=== PATIENT | female | born 1935 | race Caucasian/White ===

== ENCOUNTER 2020-06-21 10:30 | Outpatient (CLI) | payer MEDICARE, SELFPAY ==
--- NOTE | 2020-06-21 10:42 | XR_ITS ---
WS: [id number] RIGHT KNEE: 3 VIEW(S) TECHNIQUE: AP, oblique(s) and lateral. HISTORY: PAIN IN RIGHT KNEE COMPARISON: None available. No fracture or dislocation. Mild tricompartment osteoarthritis. Mild to moderate joint space narrowing with moderate size osteoph ytes from the joint lines. There is chondrocalcinosis bilaterally. Well-corticated osseous densities over the lateral femoral condyle. Small suprapatellar joint effusion. No soft tissue abnormality. XR/XR knee RT 3V* [id number] IMPRESSION: 1. Moderate tricompartment osteoarthritis. 2. Medial lateral compartment chondrocalcinosis. 3. Small well-corticated osseous densities lateral to the femoral condyle. Ost eophytes or potential loose bodies.
--- NOTE | 2020-06-21 10:42 | XR_ITS ---
WS: [id number] LEFT KNEE: 3 VIEW(S) TECHNIQUE: AP, oblique(s) and lateral. HISTORY: PAIN IN LEFT KNEE COMPARISON: None available. No fracture or dislocation. Moderate narrowing of the medial compartment. Osteophytes and chondrocalcinosis with bony sclerosis a nd subchondral cystic change. Mild narrowing lateral compartment and chondrocalcinosis. No significant joint effusion. Mild soft tissue edema. No soft tissue abnormality. XR/XR knee LT 3V* [id number] IMPRESSION: 1. Moderate medial compartment osteoarthritis. 2. Medial and lateral chondrocalcinosis.
== END 2020-06-21 10:31 | disposition home or self-care (01) ==
LOC: RADWPI 10:40
DX: M17.0 Bilateral primary osteoarthritis of knee (principal); M11.262 Other chondrocalcinosis, left knee; M11.261 Other chondrocalcinosis, right knee; M25.761 Osteophyte, right knee
CPT/HCPCS: 73562

== ENCOUNTER → 2020-07-19 10:12 | Outpatient (BNVA) | payer MEDICARE, SELFPAY | PROVIDERS: Visit Provider Specialist | DX: M17.0 Bilateral primary osteoarthritis of knee (principal) | CPT/HCPCS: 73560; 73565 ==

== ENCOUNTER 2020-08-02 15:00 | Outpatient (CLI) | payer MEDICARE, SELFPAY ==
--- NOTE | 2020-08-02 15:13 | XR_ITS ---
WS: [id number] Chest 2 views, 08/02/2020 Clinical Data: BRONCHITIS Comparison: None. Findings: No nodules, masses or effusions are seen. The heart is normal. The pulmonary vascularity is not increased. No pneumonia or pneumothorax is seen. The aortic arch and descending aorta are tortuo us. There is a thoracic dextroscoliosis. XR/XR chest 2V* [id number] Impression: Atherosclerosis.
== END 2020-08-02 15:01 | disposition home or self-care (01) ==
LOC: RADWPI 15:04
DX: J40 Bronchitis, not specified as acute or chronic (principal); I70.90 Unspecified atherosclerosis
CPT/HCPCS: 71046

== ENCOUNTER → 2020-09-13 10:29 | Outpatient (BNVA) | payer MEDICARE, SELFPAY | PROVIDERS: Visit Provider Podiatrist Foot & Ankle Surgery | DX: M21.6X1 Other acquired deformities of right foot (principal); M21.6X2 Other acquired deformities of left foot; M19.072 Primary osteoarthritis, left ankle and foot; M19.071 Primary osteoarthritis, right ankle and foot; M85.872 Other specified disorders of bone density and structure, left ankle and foot; M85.871 Other specified disorders of bone density and structure, right ankle and foot | CPT/HCPCS: 73630 ==

== ENCOUNTER → 2022-02-27 10:41 | Outpatient (BNVA) | payer MEDICARE, SELFPAY | PROVIDERS: Visit Provider Specialist | DX: M17.0 Bilateral primary osteoarthritis of knee (principal); Z71.89 Other specified counseling | CPT/HCPCS: 20610; J7326 ==

== ENCOUNTER → 2022-03-01 13:15 | Outpatient (BNVA) | payer MEDICARE, SELFPAY | PROVIDERS: Visit Provider Podiatrist Foot & Ankle Surgery | DX: M21.6X1 Other acquired deformities of right foot (principal); M21.6X2 Other acquired deformities of left foot; M76.822 Posterior tibial tendinitis, left leg; M76.72 Peroneal tendinitis, left leg | CPT/HCPCS: 99214 ==

== ENCOUNTER → 2022-09-07 08:23 | Outpatient (BNVA) | payer MEDICARE, SELFPAY | PROVIDERS: Visit Provider Specialist | DX: M17.0 Bilateral primary osteoarthritis of knee (principal); Z71.89 Other specified counseling | CPT/HCPCS: 20610; J7326 ==

== ENCOUNTER → 2022-09-27 08:25 | Outpatient (BNVA) | payer MEDICARE, SELFPAY | PROVIDERS: PCP Clinical Nurse Specialist Adult Health; Visit Provider Clinical Nurse Specialist Adult Health | DX: E53.8 Deficiency of other specified B group vitamins (principal); I10 Essential (primary) hypertension; E87.1 Hypo-osmolality and hyponatremia; D64.9 Anemia, unspecified; E11.9 Type 2 diabetes mellitus without complications; E55.9 Vitamin D deficiency, unspecified | CPT/HCPCS: 80053; 80061; 82306; 82607; 83036; 85025 ==

== ENCOUNTER → 2023-01-01 14:18 | Outpatient (BNVA) | payer MEDICARE, SELFPAY | PROVIDERS: PCP Clinical Nurse Specialist Adult Health; Visit Provider Clinical Nurse Specialist Adult Health | DX: E87.1 Hypo-osmolality and hyponatremia (principal); D64.9 Anemia, unspecified; E11.9 Type 2 diabetes mellitus without complications; R41.3 Other amnesia | CPT/HCPCS: 80053; 85025 ==

== ENCOUNTER → 2023-01-02 11:33 | Outpatient (BNVA) | payer MEDICARE, SELFPAY | PROVIDERS: PCP Clinical Nurse Specialist Adult Health; Visit Provider Clinical Nurse Specialist Adult Health | DX: R35.0 Frequency of micturition (principal) | CPT/HCPCS: 81000 ==

== ENCOUNTER 2023-01-06 19:26 | Observation (INO) | payer MEDICARE, SELFPAY ==
[2023-01-06] VITALS (10 sets, daily range): BP systolic 141–208; BP diastolic 62–113; PULSE 81–114; RESP 16–18; TEMP 36.4; O2SAT 94–97; BMI 24.2
--- NOTE | 2023-01-06 19:30 | CTR_ITS ---
PROCEDURE INFORMATION: Exam: CTA Head With Contrast, Arteriography Exam date and time: 01/06/2023 8:29 PM Age: 87 years old Clinical indication: Dizziness and giddiness; Additional info: Dizzy TECHNIQUE: Imaging protocol: Computed tomographic angiography of the head with contrast. Exam focused on the arteries. 3D rendering (Not supervised by radiologist): MIP and/or 3D reconstructed images were created by the technologist. Radiation optimization: All CT scans at this facility use at least one of these dose optimization techniques: automated exposure control; mA and/or kV adjustment per patient size (includes targeted exams where dose is matched to clinical indication); or iterative reconstruction. Contrast material: OMNI 350; Contrast volume: 70 ml; Contrast route: INTRAVENOUS (IV); REPORTING DATA: Count of CT and Cardiac NM exams in prior 12 months: This patient has received [address] and 0 known cardiac nuclear medicine studies in the 12 months prior to the current study. COMPARISON: No relevant prior studies available. RADIATION DOSE METRICS: Total DLP (mGy-cm): 975.84 FINDINGS: ANTERIOR CIRCULATION: Right internal carotid artery: Intracranial segment is patent with no significant stenosis. No aneurysm. Right middle cerebral artery: No occlusion or significant stenosis. No aneurysm. Right anterior cerebral artery: The right A1 segment of the SIN is not visualized. 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 Left internal carotid artery: Intracranial segment is patent with no significant stenosis. No aneurysm. Left middle cerebral artery: No occlusion or significant stenosis. No aneurysm. Left anterior cerebral artery: No occlusion or significant stenosis. No aneurysm. POSTERIOR CIRCULATION: Right vertebral artery: No occlusion or significant stenosis. No aneurysm. Left vertebral artery: No occlusion or significant stenosis. No aneurysm. Basilar artery: No occlusion or significant stenosis. No aneurysm. Right posterior cerebral artery: No occlusion or significant stenosis. No aneurysm. Left posterior cerebral artery: No occlusion or significant stenosis. No aneurysm. Brain: No acute infarct. No hemorrhage. Involutional changes of the brain, commensurate with age. No mass effect. Cerebral ventricles: No ventriculomegaly. Bones/joints: Unremarkable. No acute fracture. Soft tissues: Unremarkable. Thyroid: Bilateral thyroid nodules are present largest on the left measures 1.1 cm. PROCEDURE INFORMATION: Exam: CTA Neck With Contrast Exam date and time: 01/06/2023 8:29 PM Age: 87 years old Clinical indication: Dizziness and giddiness; Additional info: Dizzy TECHNIQUE: Imaging protocol: Computed tomographic angiography of the neck with contrast. 3D rendering (Not supervised by radiologist): MIP and/or 3D reconstructed images were created by the technologist. Radiation optimization: All CT scans at this facility use at least one of these dose optimization techniques: automated exposure control; mA and/or kV adjustment per patient size (includes targeted exams where dose is matched to clinical indication); or iterative reconstruction. Contrast material: OMNI 350; Contrast volume: 70 ml; Contrast route: INTRAVENOUS (IV); REPORTING DATA: Count of CT and Cardiac NM exams in prior 12 months: This patient has received [address] and 0 known cardiac nuclear medicine studies in the 12 months prior to the current study. COMPARISON: CR XR chest 2V* [id number] 08/02/2020 3:16 PM RADIATION DOSE METRICS: Total DLP (mGy-cm): 975.54 FINDINGS: Right common carotid artery: No stenosis. No dissection or occlusion. Right internal carotid artery: No stenosis of the extracranial segment. No dissection or occlusion. Right external carotid artery: No occlusion or stenosis of the origin. Left common carotid artery: The left common carotid artery has noncalcified plaque causing 50% stenosis just beyond its origin. Left internal carotid artery: No stenosis of the extracranial segment. No dissection or occlusion. Left external carotid artery: No occlusion or stenosis of the origin. Right vertebral artery: No stenosis. No dissection or occlusion. Left vertebral artery: No stenosis. No dissection or occlusion. Soft tissues: Normal. No significant soft tissue swelling. Bones/joints: No acute fracture. CT/CT angio headneck* [id number] IMPRESSION: 1. No acute intracranial abnormality. 2. No acute appearing large vessel occlusion or high-grade stenosis. 3. The right A1 segment of the SIN is not visualized. 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 IMPRESSION: No occlusion high-grade stenosis. The left common carotid artery has 50% stenosis just beyond its origin. REFERENCES: NASCET CRITERIA. The degree of stenosis in the cervical segment of the internal carotid artery is based on NASCET criteria. Normal is no stenosis. Mild is less than 50% stenosis. Moderate is 50-69% stenosis. Severe is 70% to 99% stenosis. Total occlusion is no detectable patent lumen.
--- NOTE | 2023-01-06 19:32 | ECG_ITS ---
[facility] Test Date: 2023-01-06 Pat Name: Marie Coe Department: Room: Gender: Female Pediatrician: : 1935 Requested By: Davonte Pugh Order Number: [id number] Terry MD: Saida Alejandro M.D. Measurements Intervals [place] Rate: 81 P: 59 GA: 177 QRS: -12 QRSD: 144 T: 38 QT: 406 QTc: 474 Interpretive Statements SINUS RHYTHM RIGHT BUNDLE BRANCH BLOCK [120+ ms QRS DURATION, UPRIGHT V1, 40+ ms S IN I/aVL/V4/V5/V6] No previous ECG available for comparison Electronically Signed On 01-07-2023 19:39:10 CDT by Saida Alejandro M.D. [id number]
--- NOTE | 2023-01-06 19:33 | ED_ITS ---
HPI - Nausea/Vomiting/Diarrhea General: Chief complaint: Nausea/Vomiting/Diarrhea Stated complaint: N/V Time Seen by Provider: 01/06/23 19:27 Source: patient and EMS Mode of arrival: EMS Limitations: no limitations History of Present Illness: 87-year-old female states that roughly 2:00 today she started having some dizziness states felt like the room was spinning slightly and she has had nausea and vomiting she denies any difficulty ambulating denies a headache she denies abdominal pain she states that she is had multiple episodes of vomiting denies any fevers. She is hypertensive here Associated nausea: Yes Associated symtoms: Reports dizziness and nausea; Denies chest pain or dysuria Review of Systems Const: Denies: fever(s), chills, body aches or change in appetite Eyes: Denies: blurry vision or eye discomfort ENMT: Denies: throat pain or dental pain Card: Denies: chest pain Resp: Denies: dyspnea GI: Reports: nausea and vomiting : Denies: dysuria Musc: Denies: neck pain or back pain Skin/Breast: Denies: rash Neuro: Reports: dizziness Psych: Denies: depression Cal/Lymph: Denies: easy bruising All/Imm: Denies: urticaria PFSH ED PFSH: Medical History Acute on chronic anemia Diabetes mellitus Diastolic CHF Essential hypertension Gastroesophageal reflux Hearing loss Heart murmur Hyponatremia chronic and is on Samsca for this Knee pain, bilateral Kyphosis Rheumatoid arthritis Seasonal allergies Vitamin B12 deficiency Vitamin D deficiency Surgical History H/O repair of rotator cuff H/O: hysterectomy History of carpal tunnel release History of hernia surgery History of partial surgical removal of colon Family History Father Azul Gehrig disease CAD (coronary artery disease) Mother Stroke Social History Smoking and tobacco status: never smoked Alcohol intake: never Marital status: / Physical Exam Const: COMMON NORMALS: no acute distress, patient oriented x3 and healthy appearing HENMT: COMMON NORMALS: normocephalic and atraumatic HEAD & SCALP: normocephalic and atraumatic Eye: COMMON NORMALS: Equal, round and reactive pupils present and EOMs intact bilaterally PUPIL: Yes Equal, round and reactive pupils present Neck/C-Spine: COMMON NORMALS: full ROM and supple Chest: COMMONS NORMALS: normal inspection of the chest and normal palpation of entire chest wall Resp: COMMON NORMALS: normal respiratory effort, No retractions, No use of accessory muscles and clear to auscultation bilaterally AUSCULTATION: clear to auscultation bilaterally Cardio: COMMON NORMALS: regular rate, regular rhythm and No murmurs present (Cardio) RATE: regular rate RHYTHM: regular rhythm GI: COMMON NORMALS: Normal to inspection, nondistended, normoactive bowel sounds present, Soft to palpation, non-tender and no masses PALPATION: Yes Soft to palpation Extremity: COMMON NORMALS: normal to inspection and full ROM Neuro: COMMON NORMALS: patient oriented x3, moves all extremities and no focal motor deficits Psych: COMMON NORMALS: mental status grossly normal, Normal thought process present and cooperative THOUGHT PROCESS: Normal thought process present Skin: COMMON NORMALS: no rashes or lesions noted and no wounds GENERAL SKIN EXAM: no rashes or lesions noted Course Vital Signs: Vital signs: Vital Signs Temperature 97.6 F 01/06/23 19:27 Pulse Rate 109 H 01/06/23 22:17 Respiratory Rate 16 01/06/23 22:17 Blood Pressure 141/63 01/06/23 22:17 Pulse Oximetry 94 01/06/23 22:17 MDM - Nausea/Vomiting/Diarrhea Medical Decision Making Patient presents here with vomiting along with hypertension along with some weakness and dizziness she still having a hard time walking work-up here is otherwise negative her blood pressure is improved I spoke to the hospitalist and will admit for observation at this time. Lab Data 01/06/23 19:35 01/06/23 19:35 Radiology Impressions Head/Neck CTA 01/06/23 19:30 IMPRESSION: 1. No acute intracranial abnormality. 2. No acute appearing large vessel occlusion or high-grade stenosis. 3. The right A1 segment of the SIN is not visualized. 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 IMPRESSION: No occlusion high-grade stenosis. The left common carotid artery has 50% stenosis just beyond its origin. REFERENCES: NASCET CRITERIA. The degree of stenosis in the cervical segment of the internal carotid artery is based on NASCET criteria. Normal is no stenosis. Mild is less than 50% stenosis. Moderate is 50-69% stenosis. Severe is 70% to 99% stenosis. Total occlusion is no detectable patent lumen. Abdomen/Pelvis CT 01/06/23 19:46 IMPRESSION: 1. Postop changes of the ascending colon, consistent with partial right hemicolectomy. No acute colonic abnormality noted. 2. Status post hernia repair. Surgical mesh in place. No recurrent hernia noted. 3. Status post hysterectomy. 4. No acute abnormality demonstrated in the abdomen and pelvis. Laboratory Results WBC 14.5 10^3/uL (4.0-10.0) H 01/06/23 19:35 RBC 3.87 10^6/uL (4.1-5.3) L 01/06/23 19:35 Hgb 11.8 g/dL (11.5-15.3) 01/06/23 19:35 Hct 37.7 % (37.0-47.0) 01/06/23 19:35 MCV 97.4 fl (81-99) 01/06/23 19:35 MCH 30.5 pg (28.0-34.0) 01/06/23 19:35 MCHC 31.3 g/dL (30.0-36.0) 01/06/23 19:35 RDW 12.6 % (12.1-15.1) 01/06/23 19:35 Plt Count 288 10^3/cmm (130-400) 01/06/23 19:35 MPV 8.9 fL (7.4-10.4) 01/06/23 19:35 Neut % (Auto) 85.3 % 01/06/23 19:35 Lymph % (Auto) 7.7 % 01/06/23 19:35 Rolette % (Auto) 4.9 % 01/06/23 19:35 Eos % (Auto) 0.7 % 01/06/23 19:35 Baso % (Auto) 1.1 % 01/06/23 19:35 Neut # (Auto) 12.37 10^3/uL (1.8-7.7) H 01/06/23 19:35 Lymph # (Auto) 1.1 10^3/uL (0.8-4.8) 01/06/23 19:35 Rolette # (Auto) 0.7 10^3/uL (0.2-0.9) 01/06/23 19:35 Eos # (Auto) 0.1 10^3/uL (0.0-0.8) 01/06/23 19:35 Baso # (Auto) 0.2 10^3/uL (0.0-0.1) H 01/06/23 19:35 Nucleated RBC % (auto) 0 % 01/06/23 19:35 Nucleated RBCs # 0.0 /100WBC 01/06/23 19:35 Sodium 137 mmol/L (136-145) 01/06/23 19:35 Potassium 4.7 mmol/L (3.5-5.1) 01/06/23 19:35 Chloride 99 mmol/L (98-107) 01/06/23 19:35 Carbon Dioxide 23 mmol/L (22-29) 01/06/23 19:35 Anion Gap 19.7 (5-19) H 01/06/23 19:35 BUN 22 mg/dL (8-23) 01/06/23 19:35 Creatinine 1.2 mg/dL (0.5-0.9) H 01/06/23 19:35 GFR Calculation Not Reportable 01/06/23 19:35 Glucose 137 mg/dL (65-115) H 01/06/23 19:35 Calculated Osmolality 289 mOsm/kg (285-295) 01/06/23 19:35 Calcium 9.3 mg/dL (8.5-10.5) 01/06/23 19:35 Total Bilirubin 0.3 mg/dL (0.15-1.2) 01/06/23 19:35 AST 19 U/L (0-32) 01/06/23 19:35 ALT 14 U/L (0-33) 01/06/23 19:35 Alkaline Phosphatase 82 U/L (35-105) 01/06/23 19:35 Total Protein 7.5 g/dL (6.6-8.7) 01/06/23 19:35 Albumin 4.5 g/dL (3.5-5.2) 01/06/23 19:35 Globulin 3.0 g/dL (1.3-4.6) 01/06/23 19:35 Lipase 53 U/L (13-60) 01/06/23 19:35 Urine Color Yellow (Yellow) 01/06/23 21:37 Urine Appearance Clear (CLEAR) 01/06/23 21:37 Urine pH 6 (5-7) 01/06/23 21:37 Ur Specific [place] 1.005 (1.005-1.030) 01/06/23 21:37 Urine Protein Neg (Negative) 01/06/23 21:37 Urine Glucose (UA) Norm (Normal) 01/06/23 21:37 Urine Ketones Negative (Negative) 01/06/23 21:37 Urine Blood Neg (Negative) 01/06/23 21:37 Urine Nitrate Negative (Negative) 01/06/23 21:37 Urine Bilirubin Neg (Negative) 01/06/23 21:37 Urine Urobilinogen Neg mg/dL (Negative) 01/06/23 21:37 Ur Leukocyte Esterase Negative (Negative) 01/06/23 21:37 EKG Data EKG 1: I personally reviewed and interpreted this EKG as follows: EKG interpretation date: 01/06/23 EKG interpretation time: 19:39 Interpretation: nsr hr [address] elevation qrs 144 qtc 444 Discharge Plan Discharge Patient Disposition: Admitted As Inpatient Admit Provider: Oanh Mcgovern Clinical Impression: Essential hypertension, Vomiting, Dizziness Condition: Stable Coding Level of Care Code ED Wound/Ostomy Nurse for Chg Devante
[2023-01-06] MEDS: hyDRALAzine 20 mg/mL INJ 1 mL 10 MG IVP ×2 (19:36→21:25)
[2023-01-06] MEDS: ondansetron 2 mg/ML SDV 2 mL 4 MG IVP (19:36)
[2023-01-06 19:40] LABS: Basophils # 0.2 10^3/uL (0.0-0.1); Basophils % 1.1 %; Eosinophils # 0.1 10^3/uL (0.0-0.8); Eosinophils % 0.7 %; Hematocrit 37.7 % (37.0-47.0); Hemoglobin 11.8 g/dL (11.5-15.3); Lymphocytes # 1.1 10^3/uL (0.8-4.8); Lymphocytes % 7.7 %; Mean Corpuscular HGB Conc 31.3 g/dL (30.0-36.0); Mean Corpuscular Hemoglobin 30.5 pg (28.0-34.0); Mean Corpuscular Volume 97.4 fl (81-99); Mean Platelet Volume 8.9 fL (7.4-10.4); Monocytes # 0.7 10^3/uL (0.2-0.9); Monocytes % 4.9 %; Neutrophils # 12.37 10^3/uL (1.8-7.7); Neutrophils % 85.3 %; Nucleated Red Blood Cells % 0 %; Platelet Count 288 10^3/cmm (130-400); Red Blood Count 3.87 10^6/uL (4.1-5.3); Red Cell Distribution Width 12.6 % (12.1-15.1); White Blood Count 14.5 10^3/uL (4.0-10.0)
--- NOTE | 2023-01-06 19:46 | CTR_ITS ---
PROCEDURE INFORMATION: Exam: CT Abdomen And Pelvis With Contrast Exam date and time: 01/06/2023 8:36 PM Age: 87 years old Clinical indication: Vomiting; Prior surgery; Surgery date: 6+ months; Surgery type: Partial or aren colectomy, hysterectomy, hernia repair TECHNIQUE: Imaging protocol: Computed tomography of the abdomen and pelvis with contrast. Radiation optimization: All CT scans at this facility use at least one of these dose optimization techniques: automated exposure control; mA and/or kV adjustment per patient size (includes targeted exams where dose is matched to clinical indication); or iterative reconstruction. Contrast material: OMNI 350; Contrast volume: 50 ml; Contrast route: INTRAVENOUS (IV); REPORTING DATA: Count of CT and Cardiac NM exams in prior 12 months: This patient has received [address] and 0 known cardiac nuclear medicine studies in the 12 months prior to the current study. COMPARISON: CR XR chest 2V* [id number] 08/02/2020 3:16 PM RADIATION DOSE METRICS: Total DLP (mGy-cm): 579.79 FINDINGS: Lungs: Mild atelectasis versus fibrosis noted at the lung bases. Liver: The liver is unremarkable in appearance. Gallbladder and bile ducts: No calcified gallstones in the gallbladder. No gallbladder wall thickening. No pericholecystic fluid. No biliary dilatation. Pancreas: The pancreas is normal in appearance. No pancreatic duct dilatation. Spleen: No focal splenic lesion. No splenomegaly. Adrenal glands: The adrenal glands appear within normal limits. Kidneys and ureters: The kidneys are normal in morphology. No hydronephrosis. No solid mass. Stomach and bowel: No acute gastric abnormality demonstrated. The small bowel is unremarkable as demonstrated. Postop changes of the ascending colon, consistent with partial right hemicolectomy. No acute colonic abnormality noted. Appendix: Appendix is surgically absent, related to partial right hemicolectomy. Intraperitoneal space: No pneumoperitoneum. No significant fluid collection. Vasculature: Atherosclerosis of the thoracic aorta. No abdominal aortic aneurysm. Lymph nodes: No pathologically enlarged lymph nodes are demonstrated. Urinary bladder: The urinary bladder is unremarkable in appearance. Reproductive: The uterus is not visualized, consistent with hysterectomy. Bones/joints: Scoliosis and degenerative change of the lumbar spine. Soft tissues: Status post hernia repair. Surgical mesh in place. No recurrent hernia noted. CT/CT abdomen pelvis w con* [id number] IMPRESSION: 1. Postop changes of the ascending colon, consistent with partial right hemicolectomy. No acute colonic abnormality noted. 2. Status post hernia repair. Surgical mesh in place. No recurrent hernia noted. 3. Status post hysterectomy. 4. No acute abnormality demonstrated in the abdomen and pelvis.
[2023-01-06 20:00] LABS: Alanine Aminotransferase 14 U/L (0-33); Albumin Level 4.5 g/dL (3.5-5.2); Alkaline Phosphatase 82 U/L (35-105); Anion Gap 19.7 (5-19); Aspartate Amino Transferase 19 U/L (0-32); Blood Urea Nitrogen 22 mg/dL (8-23); Calcium 9.3 mg/dL (8.5-10.5); Carbon Dioxide 23 mmol/L (22-29); Chloride 99 mmol/L (98-107); Glucose 137 mg/dL (65-115); Lipase 53 U/L (13-60); Osmolality Calculated 289 mOsm/kg (285-295); Potassium 4.7 mmol/L (3.5-5.1); Sodium 137 mmol/L (136-145); Total Bilirubin 0.3 mg/dL (0.15-1.2); Total Protein 7.5 g/dL (6.6-8.7)
[2023-01-06] MEDS: iohexol 350 mg/mL 500 mL Btl (per mL) IV (20:39)
[2023-01-06 21:41] LABS: Add Urine Microscopic? NO; Charge for UA Resulting for Rev
[2023-01-06 21:56] LABS: Bilirubin Urine Neg (Negative); Blood Urine Neg (Negative); Glucose Urine UA Norm (Normal); Ketones Urine Negative (Negative); Leukocyte Esterase Urine Negative (Negative); Nitrate Urine Negative (Negative); Protein Urine Neg (Negative); Specific Gravity, Urine 1.005 (1.005-1.030); Urine Appearance Clear (CLEAR); Urine Color Yellow (Yellow); Urobilinogen Urine Neg (Negative); pH Urine 6 (5-7)
[2023-01-06] MEDS: sodium chloride 0.9% 1,000 ML 999 ML IV (22:14)
--- NOTE | 2023-01-06 23:01 | ECG_ITS ---
Test Date: 2023-01-06 Pat Name: Marie Coe Department: Room: Gender: Female Percher: : 1935 Requested By: Davonte Pugh Order Number: [id number] Terry MD: Saida Alejandro M.D. Measurements Intervals [place] Rate: 111 P: 0 MN: 0 QRS: 45 QRSD: 141 T: 38 QT: 363 QTc: 494 Interpretive Statements ATRIAL FLUTTER/TACHYCARDIA WITH RAPID VENTRICULAR RESPONSE RIGHT BUNDLE BRANCH BLOCK [120+ ms QRS DURATION, UPRIGHT V1, 40+ ms S IN I/aVL/V4/V5/V6] Compared to ECG 01/06/2023 19:39:34 Sinus rhythm no longer present Electronically Signed On 01-07-2023 19:39:32 CDT by Saida Alejandro M.D. [id number]
[2023-01-06 23:38] LABS: Troponin(5th) Baseline 25 ng/L (0-10)
[2023-01-07] VITALS (12 sets, daily range): BP systolic 136–169; BP diastolic 65–81; PULSE 60–108; RESP 15–16; TEMP 36.6–36.7; O2SAT 92–96; BMI 29.4
--- NOTE | 2023-01-07 00:04 | USCV_ITS ---
Marie Coe Age: 87 Gender: F : 1935 Exam Date: 01/07/2023 10:39 Ordering Phys: Oanh Mcgovern MD Technologist: ANTONIO [place] [facility] [place]: [place] BP: / HR: 68 Rhythm: Sinus Technical Quality: Adequate MEASUREMENTS (Male / Female) Normal Values 2D ECHO LV Diastolic Diameter PLAX 4.9 cm 4.2 - 5.9 / 3.9 - 5.3 cm LV Systolic Diameter PLAX 2.5 cm IVS Diastolic Thickness 0.7 cm 0.6 - 1.0 / 0.6 - 0.9 cm IVS Systolic Thickness 0.9 cm LVPW Diastolic Thickness 0.7 cm 0.6 - 1.0 / 0.6 - 0.9 cm LVPW Systolic Thickness 1.1 cm LVOT Diameter 2.0 cm LV Ejection Fraction 2D Teich 79.5 % LV Ejection Fraction MOD 2C 61.8 % LV Ejection Fraction 2C AL 60.6 % LA Diameter 4.3 cm M-MODE Aortic Annulus Diameter 2.7 cm LA Ao Ratio MM 1.6 MV E Point Septal Separation 0.3 cm DOPPLER AV Peak Velocity 133.0 cm/s LVOT Peak Velocity 109.0 cm/s AV Area Cont Eq vti 2.4 cm squared AV Area Cont Eq pk 2.5 cm squared MV Area PHT 5.0 cm squared Mitral E to A Ratio 0.8 MV E' Velocity 59.5 cm/s Mitral E to MV E' Ratio 12.4 Mitral E to LV E' Lateral Ratio 13.5 Mitral E to LV E' Septal Ratio 11.6 TR Peak Velocity 290.2 cm/s TR Peak Gradient 33.7 mmHg TV Peak E Velocity 41.0 cm/s Right Atrial Pressure 6.0 mmHg Pulmonary Artery Systolic Pressu 39.7 mmHg PV Peak Velocity 83.0 cm/s FINDINGS Left Ventricle Normal left ventricular size and systolic function, EF 64 %. No regional wall motion abnormalities. Grade I/IV diastolic dysfunction (abnormal relaxation filling pattern), normal to mildly elevated filling pressures. Right Ventricle The right ventricle is normal in size and function. Right Atrium Mildly increased right atrial size. Left Atrium Mildly increased left atrial size. Mitral Valve Moderate mitral annular calcification. Mild mitral valve regurgitation. Aortic Valve Minimally thickened aortic Tricuspid Valve Mild tricuspid valve regurgitation. Pulmonic Valve Trace pulmonary valve regurgitation. Pericardium Normal pericardium without effusion. Aorta Normal ascending aorta dimension. IVC Normal inferior vena cava. CONCLUSIONS Normal left ventricular size and systolic function, EF 64 %. No regional wall motion abnormalities. Grade I/IV diastolic dysfunction (abnormal relaxation filling pattern), normal to mildly elevated filling pressures. MildModerate mitral annular calcification. Mild mitral valve regurgitation. biatrial enlargement. Mild tricuspid valve regurgitation. Minimally thickened aortic valve Mild tricuspid valve regurgitation. Trace pulmonary valve regurgitation. Estimated pulmonary artery peak systolic pressure 40 mmHg There is no pericardial effusion. There are no intracardiac masses. No similar previous studies are available for comparison Dr Saida Alejandro MD [facility] (Electronically Signed) Final Date: 07 January 2023 13:53 S
--- NOTE | 2023-01-07 00:04 | PM.HP ---
Providers/Chief Complaint Admitting Physician: Oanh Mcgovern MD Primary Care Provider: Bryan Calixto Chief Complaint: N/V History of Present Illness Marie Coe is a 87 year old female with a past medical history of hypertension, chronic hyponatremia, diabetes mellitus, CHF, presented to the emergency room today with chief complaints of dizziness, described as a sensation of the room spinning around her. She also had associated nausea and vomiting. Denies any diarrhea. Denies abdominal pain. Upon admission initial assessment her blood pressure was found to be 190/100 mmHg. Patient reports taking all her medications as prescribed. No history of fever. She states she has been having issues with her hearing for the past 2 weeks or so. She was thought to have cerumen impaction and had flushing of the left ear on January 02, 2023 at her PCPs office.. She has also recently been started on tramadol for pain and she thought she had side effects of confusion and memory impairment related to that. Review of Systems General: Reports: 10 or more systems reviewed and unremarkable except in HPI and below Const: Denies: fever(s), chills or body aches Eyes: Denies: change in vision, blurry vision or photophobia ENMT: Reports: hoarseness; Denies: throat pain, enlarged tonsils, odynophagia or nasal congestion Card: Denies: chest pain, palpitations, irregular heart rhythm, edema, swelling of feet/ankles, lightheadedness, pre-syncope, dyspnea on exertion or orthopnea Resp: Denies: dyspnea, productive cough, non-productive cough, wheezing, stridor, pain on inspiration, change in phlegm color, hemoptysis or chest congestion GI: Denies: abdominal pain, nausea, vomiting, hematemesis, coffee ground emesis, dysphagia, heartburn, diarrhea, constipation, GI cramping, change in stool character, hematochezia or melena : Denies: flank pain, difficulty voiding, dysuria, urinary frequency, urinary urgency, urinary hesitancy or hematuria Musc: Denies: neck pain, back pain, extremity pain, joint swelling, joint warmth or deformity Neuro: Denies: headache(s), numbness in extremities, weakness in extremities, sensory changes, difficulty walking, frequent falls, dizziness, vertigo, behavioral changes, Slurred speech present or seizure-like activity Psych: Denies: anxiety, depression, suicidal ideation or homicidal ideation Endo: Denies: polyuria, polydipsia, tired all the time, cold intolerance or hot flashes Cal/Lymph: Denies: easy bruising or easy bleeding Medications/Allergies Home Medications Medication Instructions Recorded Confirmed Last Taken Type ascorbic acid 1,000 1,000 mg PO DAILY 07/19/20 01/07/23 01/06/23 08:[address]-aajtdmtduazk-[id number] powder effervescent pack (Emergen-C Immune Plus) ferrous fumarate 325 mg (106 mg 325 mg PO DAILY 07/19/20 01/07/23 01/06/23 08:00 History iron) tablet (Tetts) folic acid 1 mg tablet 5 mg PO DAILY 07/19/20 01/07/23 01/06/23 08:00 History montelukast 10 mg tablet 10 mg PO DAILY 07/19/20 01/07/23 01/06/23 20:00 History multivitamin 1 cap PO DAILY 07/19/20 01/07/23 01/06/23 08:00 History omega-3 fatty acids 1,000 mg 1,000 mg PO DAILY 07/19/20 01/07/23 01/06/23 08:00 History capsule (Fish Oil Concentrate) omeprazole 20 mg capsule,delayed 20 mg PO BID 07/19/20 01/07/23 01/06/23 08:00 History release zinc acetate 25 mg (zinc) capsule 30 mg PO DAILY 07/19/20 01/07/23 01/06/23 08:00 History Custom Accomadative orthotic #1 ea 09/13/20 01/07/23 Unknown Rx SMO ankle brace #1 ea 10/26/20 01/07/23 Unknown Rx albuterol sulfate 90 mcg/actuation 2 inh inhalation Q6H PRN shortness 09/28/22 01/07/23 Unknown History aerosol inhaler of breath or wheezing benzonatate 100 mg capsule 100 mg PO BID PRN cough #90 caps 09/28/22 01/07/23 Unknown Rx cholecalciferol (vitamin D3) 125 125 mcg PO DAILY 09/28/22 01/07/23 01/06/23 08:00 History mcg (5,000 unit) capsule gabapentin 100 mg capsule 100 mg PO .COMPLEX 09/28/22 01/07/23 Unknown History liraglutide 0.6 mg/0.1 mL (18 mg/3 0.6 mg SUBCUT DAILY 09/28/22 01/07/23 01/06/23 08:00 History mL) subcutaneous pen injector (Victoza 2-Myles) loratadine 10 mg tablet (Claritin) 10 mg PO DAILY 09/28/22 01/07/23 01/06/23 08:00 History mecobalamin (vitamin B12) 1,000 1,000 mcg PO DAILY 09/28/22 01/07/23 01/06/23 08:00 History mcg chewable tablet meloxicam 15 mg tablet 15 mg PO DAILY #90 tabs 09/28/22 01/07/23 01/06/23 08:00 Rx metoprolol tartrate 25 mg tablet 25 mg PO BID 09/28/22 01/07/23 01/06/23 08:00 History promethazine-DM 6.25 mg-15 mg/5 mL 5 ml PO Q6H 09/28/22 01/07/23 Unknown History oral syrup spironolactone 25 mg tablet 25 mg PO DAILY 09/28/22 01/07/23 01/06/23 08:00 History spironolactone 50 mg tablet 50 mg PO DAILY 09/28/22 01/07/23 01/06/23 08:00 History tolvaptan 15 mg tablet (Samsca) 15 mg PO DAILY #90 tabs 11/10/22 01/07/23 01/06/23 08:00 Rx losartan 25 mg tablet 25 mg PO DAILY #90 tabs 12/18/22 01/07/23 01/06/23 08:00 Rx sodium chloride-potassium chloride 1 tab PO BID 01/04/23 01/07/23 01/06/23 08:00 History 287 mg-180 mg-15 mg tablet (Thermotabs) tramadol 50 mg tablet 25 mg PO BID PRN pain #30 tabs 01/04/23 01/07/23 01/06/23 08:00 Rx Allergies Allergy/AdvReac Type Severity Reaction Status Date / Time oxycodone [From Percocet] Allergy Unknown Unknown Verified 01/02/23 10:37 Sulfa (Sulfonamide Allergy unknown Verified 01/02/23 10:37 Antibiotics) PFSH Acute PFSH: Medical History Acute on chronic anemia Diabetes mellitus Diastolic CHF Essential hypertension Gastroesophageal reflux Hearing loss Heart murmur Hyponatremia chronic and is on Samsca for this Knee pain, bilateral Kyphosis Rheumatoid arthritis Seasonal allergies Vitamin B12 deficiency Vitamin D deficiency Surgical History H/O repair of rotator cuff H/O: hysterectomy History of carpal tunnel release History of hernia surgery History of partial surgical removal of colon Family History Father Azul Gehrig disease CAD (coronary artery disease) Mother Stroke Social History Smoking and tobacco status: never smoked Alcohol intake: never Marital status: / Vitals/I&O/Wt Last Vital Signs Temp 97.6 F 01/06/23 19:27 Pulse 109 H 01/06/23 22:17 Resp 16 01/06/23 22:17 BP 141/63 01/06/23 22:17 Pulse Ox 94 01/06/23 22:17 01/06/23 01/06/23 01/07/23 14:59 22:59 07:59 Intake Total 1000 / 1000 Balance 1000 / 1000 Weight last 48 hrs Weight 68.039 kg Physical Exam Narrative: General: No acute distress, AO x3 HEENT: PERRLA, pupils bilaterally equal and reactive, pallors not present Chest: Normal vesicular breath sounds, no added sounds, equal good air entry bilaterally CVS: S1-S2 regular, no murmurs, no tachycardia, no gallops, no rubs Abdomen: Soft, nontender, no organomegaly, bowel sounds present Neuro: No focal deficits, no facial deformity, AO x3, power 5/5 in all limbs E Data 01/06/23 19:35 01/06/23 19:35 Other Labs: Radiology Impressions Head/Neck CTA 01/06/23 19:30 IMPRESSION: 1. No acute intracranial abnormality. 2. No acute appearing large vessel occlusion or high-grade stenosis. 3. The right A1 segment of the SIN is not visualized. 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 IMPRESSION: No occlusion high-grade stenosis. The left common carotid artery has 50% stenosis just beyond its origin. REFERENCES: NASCET CRITERIA. The degree of stenosis in the cervical segment of the internal carotid artery is based on NASCET criteria. Normal is no stenosis. Mild is less than 50% stenosis. Moderate is 50-69% stenosis. Severe is 70% to 99% stenosis. Total occlusion is no detectable patent lumen. Abdomen/Pelvis CT 01/06/23 19:46 IMPRESSION: 1. Postop changes of the ascending colon, consistent with partial right hemicolectomy. No acute colonic abnormality noted. 2. Status post hernia repair. Surgical mesh in place. No recurrent hernia noted. 3. Status post hysterectomy. 4. No acute abnormality demonstrated in the abdomen and pelvis. Laboratory Results WBC 11.2 10^3/uL (4.0-10.0) H 01/07/23 01:05 RBC 3.55 10^6/uL (4.1-5.3) L 01/07/23 01:05 Hgb 10.7 g/dL (11.5-15.3) L 01/07/23 01:05 Hct 34.2 % (37.0-47.0) L 01/07/23 01:05 MCV 96.3 fl (81-99) 01/07/23 01:05 MCH 30.1 pg (28.0-34.0) 01/07/23 01:05 MCHC 31.3 g/dL (30.0-36.0) 01/07/23 01:05 RDW 12.6 % (12.1-15.1) 01/07/23 01:05 Plt Count 273 10^3/cmm (130-400) 01/07/23 01:05 MPV 9.0 fL (7.4-10.4) 01/07/23 01:05 Neut % (Auto) 81.6 % 01/07/23 01:05 Lymph % (Auto) 10.1 % 01/07/23 01:05 [place] % (Auto) 6.7 % 01/07/23 01:05 Eos % (Auto) 0.3 % 01/07/23 01:05 Baso % (Auto) 1.0 % 01/07/23 01:05 Neut # (Auto) 9.15 10^3/uL (1.8-7.7) H 01/07/23 01:05 Lymph # (Auto) 1.1 10^3/uL (0.8-4.8) 01/07/23 01:05 [place] # (Auto) 0.8 10^3/uL (0.2-0.9) 01/07/23 01:05 Eos # (Auto) 0.0 10^3/uL (0.0-0.8) 01/07/23 01:05 Baso # (Auto) 0.1 10^3/uL (0.0-0.1) 01/07/23 01:05 Nucleated RBC % (auto) 0 % 01/07/23 01:05 Nucleated RBCs # 0.0 /100WBC 01/07/23 01:05 Sodium Cancelled 01/07/23 01:05 Potassium Cancelled 01/07/23 01:05 Chloride Cancelled 01/07/23 01:05 Carbon Dioxide Cancelled 01/07/23 01:05 Anion Gap Cancelled 01/07/23 01:05 BUN Cancelled 01/07/23 01:05 Creatinine Cancelled 01/07/23 01:05 GFR Calculation Cancelled 01/07/23 01:05 Glucose Cancelled 01/07/23 01:05 Estimat Average Glucose 82 01/07/23 01:05 Hemoglobin A1c 4.5 % (4.0-6.0) 01/07/23 01:05 Calculated Osmolality Cancelled 01/07/23 01:05 Calcium Cancelled 01/07/23 01:05 Phosphorus Cancelled 01/07/23 01:05 Magnesium Cancelled 01/07/23 01:05 Total Bilirubin Cancelled 01/07/23 01:05 AST Cancelled 01/07/23 01:05 ALT Cancelled 01/07/23 01:05 Alkaline Phosphatase Cancelled 01/07/23 01:05 Troponin T Baseline 25 ng/L (0-10) H 01/06/23 23:11 Troponin T 120 Minute 27.25 ng/L (0-10) H 01/07/23 01:05 Delta Troponin T 2.25 ABS# (0-10) 01/07/23 01:05 Troponin T Hi Sens 6Hr 36.52 ng/L (0-10) H 01/07/23 06:00 Troponin T Hi Sens 6Hr Delta 11.52 ng/L (0-12) 01/07/23 06:00 Total Protein Cancelled 01/07/23 01:05 Albumin Cancelled 01/07/23 01:05 Globulin Cancelled 01/07/23 01:05 Triglycerides Cancelled 01/07/23 01:05 Cholesterol Cancelled 01/07/23 01:05 LDL Cholesterol, Calc Cancelled 01/07/23 01:05 HDL Cholesterol Cancelled 01/07/23 01:05 LDL/HDL Ratio Cancelled 01/07/23 01:05 Cholesterol/HDL Ratio Cancelled 01/07/23 01:05 Lipase 53 U/L (13-60) 01/06/23 19:35 TSH Cancelled 01/07/23 01:05 TSH Cancelled 01/07/23 01:05 Urine Color Yellow (Yellow) 01/06/23 21:37 Urine Appearance Clear (CLEAR) 01/06/23 21:37 Urine pH 6 (5-7) 01/06/23 21:37 Ur Specific [place] 1.005 (1.005-1.030) 01/06/23 21:37 Urine Protein Neg (Negative) 01/06/23 21:37 Urine Glucose (UA) Norm (Normal) 01/06/23 21:37 Urine Ketones Negative (Negative) 01/06/23 21:37 Urine Blood Neg (Negative) 01/06/23 21:37 Urine Nitrate Negative (Negative) 01/06/23 21:37 Urine Bilirubin Neg (Negative) 01/06/23 21:37 Urine Urobilinogen Neg mg/dL (Negative) 01/06/23 21:37 Ur Leukocyte Esterase Negative (Negative) 01/06/23 21:37 A&P Assessment and plan (1) Dizziness: (2) Hypertensive urgency: (3) Vomiting: Plan Patient presenting today with chief complaints of persistent dizziness and vomiting. Found to be hypertensive with blood pressure 190/110 at the time of assessment. Her symptoms may be related to hypertensive urgency. CTA of her head and neck did not show any acute intracranial abnormality. No acute appearing large vessel occlusion. 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 No high-grade stenosis of the carotid vessels. Given persistent intractable dizziness and vomiting along with a more subacute history of 2 weeks of reported confusion and alteration in memory, concerned that patient may be having a posterior circulation stroke. Will evaluate with an MRI further. Alternate differential includes BPPV, trial of meclizine for the same. No nystagmus on exam today For hypertension,She has received hydralazine 10 mg IV x2 in the emergency room. Thereafter her blood pressure is currently now 153/70. Continue her home medications losartan Sodium normal range at 137. Telemetry monitoring to assess for any underlying arrhythmias which may be potentially contributing. Twelve-lead EKG shows sinus rhythm with right bundle branch block. Check troponin series. Attestations Medical Necessity Statement*: Anticipate less than 2 midnight stay for evaluation of persistent dizziness and vomiting Coding Level of Care Code Acute Code for g Fwd Diagnoses Dizziness R42 Hypertensive urgency I16.0 Vomiting R11.10
[2023-01-07] MEDS: morphine 4 mg/mL SDV 1 mL 2 MG IVP (00:59)
[2023-01-07] MEDS: pantoprazole 40 mg SDV IVP (00:59)
[2023-01-07] MEDS: sodium chloride 0.9% 1,000 ML 50 ML IV (01:05)
[2023-01-07] MEDS: heparin 5,000 unit/mL INJ 1 mL 5000 UNIT SUBCUT ×2 (01:05→12:29)
[2023-01-07] MEDS: gabapentin 100 mg Capsule PO ×3 (01:05→20:48)
[2023-01-07 01:27] LABS: Basophils # 0.1 10^3/uL (0.0-0.1); Eosinophils % 0.3 %; Hematocrit 34.2 % (37.0-47.0); Hemoglobin 10.7 g/dL (11.5-15.3); Lymphocytes # 1.1 10^3/uL (0.8-4.8); Lymphocytes % 10.1 %; Mean Corpuscular HGB Conc 31.3 g/dL (30.0-36.0); Mean Corpuscular Hemoglobin 30.1 pg (28.0-34.0); Mean Corpuscular Volume 96.3 fl (81-99); Monocytes # 0.8 10^3/uL (0.2-0.9); Monocytes % 6.7 %; Neutrophils # 9.15 10^3/uL (1.8-7.7); Neutrophils % 81.6 %; Nucleated Red Blood Cells % 0 %; Platelet Count 273 10^3/cmm (130-400); Red Blood Count 3.55 10^6/uL (4.1-5.3); Red Cell Distribution Width 12.6 % (12.1-15.1); White Blood Count 11.2 10^3/uL (4.0-10.0)
[2023-01-07 03:00] LABS: Troponin 5 2HR 27.25 ng/L (0-10)
[2023-01-07 03:03] LABS: Troponin 5 2HR Delta 2.25 ABS# (0-10)
[2023-01-07 03:05] LABS: Estmated Average Glucose 82; Hemoglobin A1C 4.5 % (4.0-6.0)
[2023-01-07] MEDS: ondansetron 2 mg/ML SDV 2 mL 4 MG IVP (04:27)
[2023-01-07] MEDS: gabapentin 300 mg Capsule PO (06:05)
[2023-01-07 06:32] LABS: Troponin 5 6HR 36.52 ng/L (0-10)
[2023-01-07 06:48] LABS: Troponin 5 6HR Delta 11.52 ng/L (0-12)
[2023-01-07] MEDS: folic acid 1 mg Tablet 5 MG PO (09:00)
[2023-01-07] MEDS: metoprolol tartrate 25 mg Tablet PO ×2 (09:01→17:50)
[2023-01-07] MEDS: losartan 50 mg Tablet 25 MG PO (09:01)
[2023-01-07] MEDS: acetaminophen 325 mg Tablet 650 MG PO ×3 (09:12→20:48)
--- NOTE | 2023-01-07 11:50 | PM.MISC ---
Miscellaneous Note Note: H&P reviewed Nausea vomiting improved CT abdomen pelvis unremarkable Patient is full code Clinically slightly dehydrated We will request PT evaluation MRI head is at the bedside Updated beverley shultz
[2023-01-07 13:10] LABS: Albumin Level 3.4 g/dL (3.5-5.2); Alkaline Phosphatase 59 U/L (35-105); Anion Gap 12.9 (5-19); Aspartate Amino Transferase 15 U/L (0-32); Blood Urea Nitrogen 18 mg/dL (8-23); Carbon Dioxide 24 mmol/L (22-29); Chloride 99 mmol/L (98-107); Chol HDL Ratio 1.98 mg/dL (0.0-4.40); Cholesterol 113 mg/dL (0-200); Globulin 2.3 g/dL (1.3-4.6); Glucose 132 mg/dL (65-115); HDL Cholesterol 57 mg/dL (60-100); LDL Cholesterol Calculated 42 mg/dL (50-129); LDL HDL Ratio 0.74 RATIO (0.00-3.22); Magnesium 1.1 mg/dL (1.7-2.3); Osmolality Calculated 276 mOsm/kg (285-295); Phosphorus 3.7 mg/dL (2.5-4.5); Potassium 4.9 mmol/L (3.5-5.1); Sodium 131 mmol/L (136-145); Thyroid Stimulating Hormone 1.64 uIU/mL (0.27-4.20); Total Bilirubin 0.3 mg/dL (0.15-1.2); Triglycerides 72 mg/dL (0-150)
[2023-01-07 13:31] LABS: Total Protein 5.7 g/dL (6.6-8.7)
[2023-01-07 13:32] LABS: Alanine Aminotransferase 11 U/L (0-33)
[2023-01-08] VITALS (7 sets, daily range): BP systolic 165–180; BP diastolic 62–84; PULSE 64–79; RESP 15–17; TEMP 36.4–36.8; O2SAT 93–99; BMI 30.2
[2023-01-08] MEDS: heparin 5,000 unit/mL INJ 1 mL 5000 UNIT SUBCUT ×2 (00:08→10:47)
[2023-01-08] MEDS: pantoprazole 40 mg SDV IVP (00:08)
[2023-01-08] MEDS: gabapentin 300 mg Capsule PO (05:16)
[2023-01-08] MEDS: losartan 50 mg Tablet 25 MG PO (08:10)
[2023-01-08] MEDS: metoprolol tartrate 25 mg Tablet PO (08:12)
[2023-01-08] MEDS: folic acid 1 mg Tablet 5 MG PO (08:12)
--- NOTE | 2023-01-08 10:24 | PM.DCS ---
Discharge Providers Date of Admission: 01/06/23 23:09 Date of Discharge: January 08, 2023 Attending Provider at Admission: Oanh Mcgovern MD Attending Provider at Discharge: Quincy Rivas MD Primary Care Provider: Bryan Calixto Diagnoses at Discharge Discharge Diagnosis (1) Dizziness: Status: Acute (2) Hypertensive urgency: Status: Acute (3) Vomiting: Status: Acute Reason for Visit Reason for Visit: N/V Hospital Course Hospital Course 87-year female who was admitted for medicine remained hemodynamically stable, no signs of stroke, CT head unremarkable, abdominal pelvis CT scan showing chronic changes, she has history of hemicolectomy. Head and neck CT unremarkable. Echo unremarkable. TSH normal. Patient did not experience any nausea or vomiting throughout hospitalization. She is tolerating her diet. Of note, patient had vacs removed from her ears 2 days before her arrival in the ER, she does have some dizziness on changing her head position, I have counseled patient and her daughter to use Virginie's maneuver at home for vertigo. She does not need MRI. No focal neurological deficits noted on clinical exam. Chronic kidney disease at baseline. She is being discharged with stable vitals. For her hypertension I have added an chlorthalidone, amlodipine, increase the dose of metoprolol and losartan, hydralazine with instructions to withhold medications if blood pressure or heart rate is low, discharge instructions provided Physical Exam Narrative: Eating breakfast Awake and alert GCS EOMI, PERRLA GCS 15 Abdomen soft Pleasant and cooperative On room air Discharge Data Studies Completed and Pending Completed Studies During Hospitalization Category Date Time Status CT abdomen pelvis w con* [id number] Stat Cat Scan 01/06/23 19:[address] angio head neck [CT angio headneck* [id number]] Cat Scan 01/06/23 19:30 Completed Stat CV. echo complete* [id number] Routine Ultrasound 01/07/23 00:04 Completed Radiology Impressions Head/Neck CTA 01/06/23 19:30 IMPRESSION: 1. No acute intracranial abnormality. 2. No acute appearing large vessel occlusion or high-grade stenosis. 3. The right A1 segment of the SIN is not visualized. 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 IMPRESSION: No occlusion high-grade stenosis. The left common carotid artery has 50% stenosis just beyond its origin. REFERENCES: NASCET CRITERIA. The degree of stenosis in the cervical segment of the internal carotid artery is based on NASCET criteria. Normal is no stenosis. Mild is less than 50% stenosis. Moderate is 50-69% stenosis. Severe is 70% to 99% stenosis. Total occlusion is no detectable patent lumen. Abdomen/Pelvis CT 01/06/23 19:46 IMPRESSION: 1. Postop changes of the ascending colon, consistent with partial right hemicolectomy. No acute colonic abnormality noted. 2. Status post hernia repair. Surgical mesh in place. No recurrent hernia noted. 3. Status post hysterectomy. 4. No acute abnormality demonstrated in the abdomen and pelvis. Laboratory Results WBC 11.2 10^3/uL (4.0-10.0) H 01/07/23 01:05 RBC 3.55 10^6/uL (4.1-5.3) L 01/07/23 01:05 Hgb 10.7 g/dL (11.5-15.3) L 01/07/23 01:05 Hct 34.2 % (37.0-47.0) L 01/07/23 01:05 MCV 96.3 fl (81-99) 01/07/23 01:05 MCH 30.1 pg (28.0-34.0) 01/07/23 01:05 MCHC 31.3 g/dL (30.0-36.0) 01/07/23 01:05 RDW 12.6 % (12.1-15.1) 01/07/23 01:05 Plt Count 273 10^3/cmm (130-400) 01/07/23 01:05 MPV 9.0 fL (7.4-10.4) 01/07/23 01:05 Neut % (Auto) 81.6 % 01/07/23 01:05 Lymph % (Auto) 10.1 % 01/07/23 01:05 [place] % (Auto) 6.7 % 01/07/23 01:05 Eos % (Auto) 0.3 % 01/07/23 01:05 Baso % (Auto) 1.0 % 01/07/23 01:05 Neut # (Auto) 9.15 10^3/uL (1.8-7.7) H 01/07/23 01:05 Lymph # (Auto) 1.1 10^3/uL (0.8-4.8) 01/07/23 01:05 [place] # (Auto) 0.8 10^3/uL (0.2-0.9) 01/07/23 01:05 Eos # (Auto) 0.0 10^3/uL (0.0-0.8) 01/07/23 01:05 Baso # (Auto) 0.1 10^3/uL (0.0-0.1) 01/07/23 01:05 Nucleated RBC % (auto) 0 % 01/07/23 01:05 Nucleated RBCs # 0.0 /100WBC 01/07/23 01:05 Sodium 131 mmol/L (136-145) L 01/07/23 12:34 Potassium 4.9 mmol/L (3.5-5.1) 01/07/23 12:34 Chloride 99 mmol/L (98-107) 01/07/23 12:34 Carbon Dioxide 24 mmol/L (22-29) 01/07/23 12:34 Anion Gap 12.9 (5-19) 01/07/23 12:34 BUN 18 mg/dL (8-23) 01/07/23 12:34 Creatinine 1.3 mg/dL (0.5-0.9) H 01/07/23 12:34 GFR Calculation Not Reportable 01/07/23 12:34 Glucose 132 mg/dL (65-115) H 01/07/23 12:34 Estimat Average Glucose 82 01/07/23 01:05 Hemoglobin A1c 4.5 % (4.0-6.0) 01/07/23 01:05 Calculated Osmolality 276 mOsm/kg (285-295) L 01/07/23 12:34 Calcium 8.0 mg/dL (8.5-10.5) L 01/07/23 12:34 Phosphorus 3.7 mg/dL (2.5-4.5) 01/07/23 12:34 Magnesium 1.1 mg/dL (1.7-2.3) L 01/07/23 12:34 Total Bilirubin 0.3 mg/dL (0.15-1.2) 01/07/23 12:34 AST 15 U/L (0-32) 01/07/23 12:34 ALT 11 U/L (0-33) 01/07/23 12:34 Alkaline Phosphatase 59 U/L (35-105) 01/07/23 12:34 Troponin T Baseline 25 ng/L (0-10) H 01/06/23 23:11 Troponin T 120 Minute 27.25 ng/L (0-10) H 01/07/23 01:05 Delta Troponin T 2.25 ABS# (0-10) 01/07/23 01:05 Troponin T Hi Sens 6Hr 36.52 ng/L (0-10) H 01/07/23 06:00 Troponin T Hi Sens 6Hr Delta 11.52 ng/L (0-12) 01/07/23 06:00 Total Protein 5.7 g/dL (6.6-8.7) L D 01/07/23 12:34 Albumin 3.4 g/dL (3.5-5.2) L 01/07/23 12:34 Globulin 2.3 g/dL (1.3-4.6) 01/07/23 12:34 Triglycerides 72 mg/dL (0-150) 01/07/23 12:34 Cholesterol 113 mg/dL (0-200) 01/07/23 12:34 LDL Cholesterol, Calc 42 mg/dL (50-129) L 01/07/23 12:34 HDL Cholesterol 57 mg/dL (60-100) L 01/07/23 12:34 LDL/HDL Ratio 0.74 RATIO (0.00-3.22) 01/07/23 12:34 Cholesterol/HDL Ratio 1.98 mg/dL (0.0-4.40) 01/07/23 12:34 Lipase 53 U/L (13-60) 01/06/23 19:35 TSH 1.64 uIU/mL (0.27-4.20) 01/07/23 12:34 Urine Color Yellow (Yellow) 01/06/23 21:37 Urine Appearance Clear (CLEAR) 01/06/23 21:37 Urine pH 6 (5-7) 01/06/23 21:37 Ur Specific [place] 1.005 (1.005-1.030) 01/06/23 21:37 Urine Protein Neg (Negative) 01/06/23 21:37 Urine Glucose (UA) Norm (Normal) 01/06/23 21:37 Urine Ketones Negative (Negative) 01/06/23 21:37 Urine Blood Neg (Negative) 01/06/23 21:37 Urine Nitrate Negative (Negative) 01/06/23 21:37 Urine Bilirubin Neg (Negative) 01/06/23 21:37 Urine Urobilinogen Neg mg/dL (Negative) 01/06/23 21:37 Ur Leukocyte Esterase Negative (Negative) 01/06/23 21:37 Vitals Last Vital Signs Temp 97.9 F 01/08/23 07:37 Pulse 74 01/08/23 07:37 Resp 15 01/08/23 07:37 BP 180/80 01/08/23 08:10 Pulse Ox 95 01/08/23 07:37 O2 Del Method 01/08/23 07:37 Discharge Plan Discharge Patient Disposition: Home Condition: Stable Prescriptions: New chlorthalidone 25 mg tablet 25 mg PO DAILY Qty: 60 3RF amlodipine 5 mg tablet 5 mg PO DAILY Qty: 30 0RF hydralazine 25 mg tablet 25 mg PO BID Qty: 60 3RF Continued omeprazole 20 mg capsule,delayed release(DR/EC) 20 mg PO BID zinc acetate 25 mg (zinc) capsule 30 mg PO DAILY Rx Instructions: swallow whole; do not chew/break/dissolve/open montelukast 10 mg tablet 10 mg PO DAILY omega-3 fatty acids [Fish Oil Concentrate] 1,000 mg capsule 1,000 mg PO DAILY folic acid 1 mg tablet 5 mg PO DAILY Ferretts 325 mg (106 mg iron) tablet 325 mg PO DAILY Emergen-C Immune Plus 1,000 mg powder effervescent in packet 1,000 mg PO DAILY gabapentin 100 mg capsule 100 mg PO .COMPLEX Rx Instructions: 3 caps in AM, 1 at noon, 1 in PM mecobalamin (vitamin B12) 1,000 mcg tablet,chewable 1,000 mcg PO DAILY Rx Instructions: takes 5000 mcg/day (DME) Custom Accomadative orthotic See Rx Instructions .ROUTE .MEDSUPPLY Qty: 1 0RF Rx Instructions: with rear foot post on left benzonatate 100 mg capsule 100 mg PO BID PRN (Reason: cough) Qty: 90 0RF albuterol sulfate 90 mcg/actuation HFA aerosol inhaler 2 inh inhalation Q6H PRN (Reason: shortness of breath or wheezing) cholecalciferol (vitamin D3) 125 mcg (5,000 unit) capsule 125 mcg PO DAILY loratadine [Claritin] 10 mg tablet 10 mg PO DAILY Victoza 2-Myles 0.6 mg/0.1 mL (18 mg/3 mL) pen injector 0.6 mg SUBCUT DAILY tramadol 50 mg tablet 25 mg PO BID PRN (Reason: pain) Qty: 30 2RF Thermotabs 287-180-15 mg tablet 1 tab PO BID (DME) SMO ankle brace See Rx Instructions .Route .MEDSUPPLY Qty: 1 0RF Rx Instructions: As directed Samsca 15 mg tablet 15 mg PO DAILY Qty: 90 3RF Changed metoprolol tartrate 25 mg tablet 50 mg PO BID Qty: 60 3RF losartan 25 mg tablet 50 mg PO DAILY Qty: 60 3RF Discontinued multivitamin Capsule 1 cap PO DAILY spironolactone 25 mg tablet 25 mg PO DAILY Rx Instructions: Takes a total of 75 mg daily spironolactone 50 mg tablet 50 mg PO DAILY Rx Instructions: Takes a total of 75 mg daily meloxicam 15 mg tablet 15 mg PO DAILY Qty: 90 0RF Rx Instructions: Take 1 tablet by mouth daily promethazine-DM 6.25-15 mg/5 mL syrup 5 ml PO Q6H Discharge Orders: Discharge Order (Routine); Ordered 01/08/23 Ordered By: Quincy Rivas Referrals: Bryan Calixto NP [Primary Care Provider] - 01/16/23 12:00 pm Patient Instructions: Opioid Safety Activity Restrictions/Additional Instructions: For your high blood pressure you will take metoprolol, losartan, hydralazine, amlodipine and metoprolol In case your blood pressure is below 110/70 mmHg please do not take your blood pressure medications other than amlodipine 5 mg, if your heart rate is below 60 please do not take metoprolol Maintain a blood pressure log and share with your primary care physician, we will like to reduce the number of medications you are taking for your blood pressure Discharge Attestations Time Spent in Discharge Care*: less than 30 min Quality Metrics Clinical Quality Measures [ No reported AMI, CVA or VTE this stay] Coding Level of Care Code Acute Code for Chg Fwd Diagnoses Dizziness R42 Hypertensive urgency I16.0 Vomiting R11.10
--- NOTE | 2023-01-08 10:32 | PC.CHAP ---
Pastoral Care Encounter/Spiritual Assessment Type of Contact [] Declined irish moss gatherer visit [] Patient/Family/Request visit [] Outpatient visit [] Follow-up visit [] Physician referral [] Code/Alert [x] Routine visit [] Staff referral [] Actively dying [] Patient sleeping [x] Family support [] [] Out of room [] Palliative care [] [] Receiving care in room [] Pre-surgical visit [] Trauma [] Long length of stay [] ICU visit [] Other: Relational/Emotional Strength x [] Patient feels connected with others/family/visitors/staff [] Distress [] Loneliness/isolation [] Abandonment Spirituality of Patientx x] Person of Desire [x] Attends Taoism of their Desire [x] Believes in Prayer [x] Reads Bible or Adventism materials [] There are Spiritual issues to be addressed 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 Interventions xx[] Spiritual/emotional support [] Crisis/trauma care [] Spiritual counseling [] Bereavement support [] Provided bereavement packet [] Provided Bible/devotional materials x[] Provided toy/stuffed animal, coloring book to patient or family member [] Provided Communion [] Anointing/[place] [] Salvation [x] Completed spiritual assessment [] Other: Impact on Illness or Injury [] Angry [] Fearful [] Anxious [] Often cries [] Exhaustion [] Unable to work [] Unable to attend baptist [] Unable to walk/stand [] Unable to read [] Unable to drive [] Unable to eat/drink [] Unable to sleep [] Unable to be with family [] Patient intubated [] Other: Summary Time spent with patient 15 min
[2023-01-08] MEDS: gabapentin 100 mg Capsule PO (10:47)
[2023-01-08] MEDS: hyDRALAzine 20 mg/mL INJ 1 mL 5 MG IVP (11:41)
== END 2023-01-08 12:41 | disposition home health service (06) ==
LOC: ER 19:50 → MEDSURG 23:20
PROVIDERS: Admitting Provider Student in an Organized Health Care Education/Training Program; Emergency Provider Emergency Medicine; PCP Clinical Nurse Specialist Adult Health; Visit Provider Internal Medicine
DX: R42 Dizziness and giddiness (principal); I16.0 Hypertensive urgency; R11.10 Vomiting, unspecified; E87.1 Hypo-osmolality and hyponatremia; E11.9 Type 2 diabetes mellitus without complications; I11.0 Hypertensive heart disease with heart failure; I50.30 Unspecified diastolic (congestive) heart failure; K21.9 Gastro-esophageal reflux disease without esophagitis; M06.9 Rheumatoid arthritis, unspecified; R00.0 Tachycardia, unspecified; I45.10 Unspecified right bundle-branch block
CPT/HCPCS: 36415; 70496; 70498; 74177; 80053; 80061; 81003; 83036; 83690; 83735; 84100; 84443; 84484; 85025; 93005; 93306; 96372; 96374; 96375; 96376; 97110; 97161; 99285; C9113; G0378; J0360; J1644; J2270; J2405; J7030; Q9967

== ENCOUNTER → 2023-01-09 15:05 | Outpatient (BNVA) | payer MEDICARE, SELFPAY | PROVIDERS: PCP Clinical Nurse Specialist Adult Health; Visit Provider Clinical Nurse Specialist Adult Health | DX: E87.1 Hypo-osmolality and hyponatremia (principal); E11.9 Type 2 diabetes mellitus without complications | CPT/HCPCS: 80053; 83036 ==

== ENCOUNTER → 2023-01-25 12:56 | Outpatient (BNVA) | payer MEDICARE, SELFPAY | PROVIDERS: PCP Clinical Nurse Specialist Adult Health; Visit Provider Clinical Nurse Specialist Adult Health | DX: E87.5 Hyperkalemia (principal) | CPT/HCPCS: 80053; 83735; 85025 ==

== ENCOUNTER → 2023-02-13 08:34 | Outpatient (BNVA) | payer MEDICARE, SELFPAY | PROVIDERS: PCP Clinical Nurse Specialist Adult Health; Visit Provider Clinical Nurse Specialist Adult Health | DX: E87.5 Hyperkalemia (principal) | CPT/HCPCS: 80048 ==

== ENCOUNTER → 2023-02-28 08:16 | Outpatient (BNVA) | payer MEDICARE, SELFPAY | PROVIDERS: PCP Clinical Nurse Specialist Adult Health; Visit Provider Clinical Nurse Specialist Adult Health | DX: E87.5 Hyperkalemia (principal) | CPT/HCPCS: 80048 ==

== ENCOUNTER → 2023-03-01 12:53 | Outpatient (BNVA) | payer MEDICARE, SELFPAY | PROVIDERS: PCP Clinical Nurse Specialist Adult Health; Visit Provider Podiatrist Foot & Ankle Surgery | DX: M21.6X1 Other acquired deformities of right foot (principal); M21.6X2 Other acquired deformities of left foot; M76.822 Posterior tibial tendinitis, left leg; M76.72 Peroneal tendinitis, left leg | CPT/HCPCS: 99213 ==

== ENCOUNTER → 2023-03-07 08:32 | Outpatient (BNVA) | payer MEDICARE, SELFPAY | PROVIDERS: PCP Clinical Nurse Specialist Adult Health; Visit Provider Clinical Nurse Specialist Adult Health | DX: E87.1 Hypo-osmolality and hyponatremia (principal) | CPT/HCPCS: 80048 ==

== ENCOUNTER → 2023-03-08 08:09 | Outpatient (BNVA) | payer MEDICARE, SELFPAY | PROVIDERS: PCP Clinical Nurse Specialist Adult Health; Visit Provider Specialist | DX: M17.0 Bilateral primary osteoarthritis of knee (principal) | CPT/HCPCS: 20610; J7326 ==

== ENCOUNTER → 2023-03-29 15:12 | Outpatient (BNVA) | payer MEDICARE, SELFPAY | PROVIDERS: PCP Clinical Nurse Specialist Adult Health; Visit Provider Nurse Practitioner Family | DX: I10 Essential (primary) hypertension (principal); E87.5 Hyperkalemia | CPT/HCPCS: 80048 ==

== ENCOUNTER → 2023-04-25 10:06 | Outpatient (BNVA) | payer MEDICARE, SELFPAY | PROVIDERS: PCP Clinical Nurse Specialist Adult Health; Visit Provider Family Medicine | DX: Z01.818 Encounter for other preprocedural examination (principal) | CPT/HCPCS: 80048; 83735; 85025 ==

== ENCOUNTER 2023-05-04 13:21 | Outpatient (CLI) | payer MEDICARE, SELFPAY ==
--- NOTE | 2023-05-04 14:00 | CT_ITS ---
WS: [id number] CT LEFT knee, noncontrast HISTORY: M17.0 - Bilateral primary osteoarthritis of knee TECHNIQUE: Protocol for [facility] total knee replacement has been obtained. This includes axial imaging th rough the LEFT hip, LEFT knee and LEFT ankle. DLP: 1095.70 mGy.cm COMPARISON: None available. Symmetric appearance of the hip joints. No destructive bone lesions. Bilateral healed fractures infer ior pubic rami. Postoperative changes in the cecal region. Knee: Tricompartment joint space narrowing and osteophytes. No fracture. Small joint effusion. Mild degenerative changes at the ankle. CT/CT knee LT [facility] IMPRESSION: CT imaging provided for [facility] robotic total knee replacement.
== END 2023-05-04 13:22 | disposition home or self-care (01) ==
PROVIDERS: PCP Clinical Nurse Specialist Adult Health; Visit Provider Specialist
DX: M17.0 Bilateral primary osteoarthritis of knee (principal)
CPT/HCPCS: 73700

== ENCOUNTER → 2023-05-07 13:47 | Outpatient (BNVA) | payer MEDICARE, SELFPAY | PROVIDERS: PCP Clinical Nurse Specialist Adult Health; Visit Provider Specialist | DX: M17.12 Unilateral primary osteoarthritis, left knee; M25.561 Pain in right knee; M25.562 Pain in left knee; G89.29 Other chronic pain | CPT/HCPCS: 36415; 73560; 73565; 80048; 81001; 99214 ==

== ENCOUNTER 2023-05-22 16:49 | Observation (INO) | payer MEDICARE, SELFPAY ==
[2023-05-21 10:54] VITALS: BMI 24.7
[2023-05-22] VITALS (16 sets, daily range): BP systolic 105–144; BP diastolic 55–77; PULSE 72–90; RESP 15–17; TEMP 36.3–36.6; O2SAT 93–100
[2023-05-22] MEDS: CELEcoxib 200 mg Capsule 400 MG PO (08:46)
[2023-05-22] MEDS: sodium chloride 0.9% 1,000 ML 30 ML IV (08:47)
[2023-05-22] MEDS: acetaminophen 1,000 MG/100 ML PIGGYBACK 400 MG IV (08:47)
--- NOTE | 2023-05-22 09:17 | ANES.PREANE2 ---
Pre-Anesthetic Assessment Height/Weight: Height 1.6 m Weight 63.503 kg O2 Del Method Room Air 05/22/23 08:27 Preop Diagnosis: Severe degenerative osteoarthritis left knee Operation Date: 05/22/23 09:55 Proposed Procedures p LEFT TOTAL KNEE ARTHROPLASTY WITH [facility] GUIDANCE 97960,M17.10(Left) - Leti Rodrigues MD Familial anesthetic complications: none Was Beta Florencia taken within 24 hours: Yes Was Clonidine taken within 24 hours: N/A Last intake: Intake Last Liquid Date 05/22/23 Last Liquid Time 06:30 Last Solid Date 05/21/23 Last Solid Time 19:00 Social No alcohol and No tobacco Exam alert, oriented x 3, clear to auscultation bilaterally and regular rate & rhythm Airway Mallampati: Class II Dentition: full CV/HEM Hypertension GI Gastroesophageal Reflux Disease partial colectomy Medications/Allergies Home Medications Medication Instructions Recorded Confirmed Last Taken Type ascorbic acid 1,000 1,000 mg PO DAILY 07/19/20 05/21/23 05/21/23 History bf-cuzksgpfeclg-ojunxdnv powder effervescent pack (Emergen-C Immune Plus) ferrous fumarate 325 mg (106 mg 325 mg PO DAILY 07/19/20 05/21/23 05/21/23 History iron) tablet (Ferretts) folic acid 1 mg tablet 5 mg PO DAILY 07/19/20 05/21/23 05/21/23 History omega-3 fatty acids 1,000 mg 1,000 mg PO DAILY 07/19/20 05/21/23 05/21/23 History capsule (Fish Oil Concentrate) zinc acetate 25 mg (zinc) capsule 30 mg PO DAILY 07/19/20 05/21/23 05/21/23 History Custom Accomadative orthotic #1 ea 09/13/20 05/07/23 Unknown Rx SMO ankle brace #1 ea 10/26/20 05/07/23 Unknown Rx cholecalciferol (vitamin D3) 125 125 mcg PO DAILY 09/28/22 05/21/23 05/21/23 History mcg (5,000 unit) capsule gabapentin 100 mg capsule 300 mg PO 09/28/22 05/07/23 05/22/23 History loratadine 10 mg tablet (Claritin) 10 mg PO DAILY 09/28/22 05/21/23 05/21/23 History mecobalamin (vitamin B12) 1,000 1,000 mcg PO DAILY 09/28/22 05/21/23 05/21/23 History mcg chewable tablet tolvaptan 15 mg tablet (Samsca) 15 mg PO DAILY #90 tabs 11/10/22 05/22/23 05/22/23 Rx metoprolol succinate 25 mg 25 mg PO DAILY #90 tabs 01/25/23 05/21/23 05/21/23 Rx tablet,extended release 24 hr omeprazole 20 mg capsule,delayed 20 mg PO BID 90 days #180 caps 01/25/23 05/21/23 05/21/23 Rx release montelukast 10 mg tablet 10 mg PO DAILY #90 tabs 01/26/23 05/21/23 05/21/23 Rx tramadol 50 mg tablet 25 mg PO BID PRN pain #30 tabs 02/06/23 05/21/23 05/21/23 Rx albuterol sulfate 90 mcg/actuation 2 inh inhalation Q6H PRN shortness 03/29/23 05/21/23 05/21/23 Rx aerosol inhaler of breath or wheezing #8.5 grams sodium chloride-potassium chloride 1 tab PO BID 04/02/23 05/21/23 05/21/23 History 287 mg-180 mg-15 mg tablet (Thermotabs) losartan 25 mg tablet 25 mg PO BID 04/25/23 05/21/23 05/21/23 History hydralazine 25 mg tablet 25 mg PO PRN PRN hypertension 05/21/23 05/21/23 Unknown History magnesium 500 mg tablet 500 mg PO DAILY 05/21/23 05/21/23 05/21/23 History meclizine 25 mg tablet 25 mg PO PRN PRN dizziness 05/21/23 05/21/23 02/26/23 08:00 History Allergies Allergy/AdvReac Type Severity Reaction Status Date / Time oxycodone [From Percocet] Allergy Unknown Unknown Verified 05/07/23 14:32 Sulfa (Sulfonamide Allergy unknown Verified 05/07/23 14:32 Antibiotics) Current Medications Generic Name Dose Route Start Last Admin Trade Name Freq PRN Reason Stop Dose Admin Sodium Chloride 1,000 mls @ 30 mls/hr 05/22/23 08:30 05/22/23 08:47 Sodium Chloride 0.9% IV 05/23/23 08:29 30 mls/hr .Q24H SARIKA Administration PFSH Anesthesia Medical History Acute on chronic anemia Diabetes mellitus Diastolic CHF Dizziness Essential hypertension Gastroesophageal reflux Hearing loss Heart murmur Hypertensive urgency Hyponatremia chronic and is on Samsca and thermotabs Knee pain, bilateral Kyphosis Meniere's disease Rheumatoid arthritis Seasonal allergies Vitamin B12 deficiency Vitamin D deficiency Vomiting Surgical History H/O repair of rotator cuff H/O: hysterectomy History of carpal tunnel release History of hernia surgery History of partial surgical removal of colon Family History Father Azul Gehrig disease CAD (coronary artery disease) Mother Stroke Social History Smoking and tobacco status: never smoked Alcohol intake: never Substance/Drug Use: never Marital status: / Data Anesthesia Cardiac Studies: Echocardiogram 01/07/23
--- NOTE | 2023-05-22 09:30 | P.HPUD_ITS ---
Surgery/Procedure H&P Update DATE OF PROCEDURE: May 22, 2023 DATE H&P PERFORMED: 05/07/23 H&P UPDATE INFORMATION: I have reviewed H&P completed within last 30 days, I have examined patient prior to procedure, No changes to prior documentation and H&P is in [facility] EMR on date indicated PREOP DIAGNOSIS: Severe degenerative osteoarthritis left knee PLANNED PROCEDURE: Operation Date: 05/22/23 09:55 Proposed Procedures p LEFT TOTAL KNEE ARTHROPLASTY WITH [facility] GUIDANCE 78662,M17.10(Left) - Leti Rodrigues MD Related Problem List Diagnoses (1) Primary osteoarthritis of left knee:
[2023-05-22] MEDS: ceFAZolin 2,000 MG in sodium chloride 0.9% (plus) 50 ML 100 MG IV (09:57)
[2023-05-22] MEDS: ceFAZolin 1,000 mg SDV 2000 MG IRRIGATION (11:15)
[2023-05-22] MEDS: vancomycin 1,000 MG SDV 1000 MG XX (11:15)
--- NOTE | 2023-05-22 12:13 | SUR.OPER ---
Family Notified Of Patient's Status Via Phone.
--- NOTE | 2023-05-22 14:05 | XR_ITS ---
WS: [id number] EXAMINATION: XR knee LT 1-2V 62543 REASON FOR EXAM: Status post left total knee arthroplasty COMPARISON: None available. ORDER DATE: 05/22/2023 2:05 PM FINDINGS: There is satisfactory alignment of the prostheses at the knee joint is viewed with a knee immobilizer in place and recent postsurgical changes with surgical michelle noted. There is satisfactory prosthes is positioning of the total knee replacement components. . XR/XR knee LT 1-2V 79652 IMPRESSION: Stable appearance of the recent total knee arthroplasty.
--- NOTE | 2023-05-22 14:05 | P.OP_ITS ---
Operative Report Date of procedure: May 22, 2023 Pre-op diagnosis: Primary osteoarthritis left knee with flexion contracture and varus deformity Post-op diagnosis: Primary osteoarthritis left knee with flexion contracture and varus deformity, osteopenia with partial avulsion proximal medial collateral ligament Post-op findings: Severe osteopenia in addition to flexion contracture and varus deformity Procedure done: Left total knee arthroplasty with Hermilo guidance Implants: The [place] total knee system with a size 3 triathlon cruciate retaining left femur, cemented, a triathlon universal tibial component size?3, cemented, a triathlon X3 tibial bearing CS insert size 3 X 11 mm and a cemented triathlon asymmetric patella size 35 x 10 mm. Biosteon Intraline 5.5mm Suture anchor with #2 Force Fiber Specimens removed/disposition: Bone, disposed of Pathology: none sent Surgeon: Leti Rodrigues Inside Sales Administrator: [facility] operating room technicians Anesthesia: MAC (With spinal, ASA 3) Estimated blood loss (mL): 150 Tourniquet time (min): 100 (At 250 mmHg) IV fluids (mL): 900 Urine output (mL): 500 Complications: None Findings: Severe degenerative osteoarthritis with flexion contracture, varus deformity, and severe osteopenia Condition: stable Disposition: PACU (Then to floor for postoperative rehabilitation and pain management) Brief History: This 87-year-old woman has been followed in my office over the past several years. The patient had severe degenerative osteoarthritic change with in both knees. She continues to receive injection therapies in the form of gel 1 and cortisone. These stopped working for her, and she wished to discuss further options. She had significant limitations in her activities of daily living, and most recently, she has limited her walking severely secondary to knee pain. Because of this, the patient wished to proceed. Risks and complications were discussed with the patient and her daughter. Consents were signed and the patient was scheduled for total knee arthroplasty. Procedure: The patient was brought to the operating theater, and after undergoing spinal anesthesia with MAC and supplemental adductor block, ASA 3, the left lower extremity was prepped with Dura-Prep and draped in usual fashion following placement of a tourniquet high on the leg. The leg was then draped free.? Tourniquet was not initially elevated during the case.? As surgical procedure proceeded, it was evident that the patient had significant osteopenia which precluded use of press-fit components. The decision was made to proceed to cemented components, and the tourniquet was elevated. Total tourniquet time was 100 minutes at 250 mmHg. Prior to commencement of the surgical procedure, a surgical pause was performed, and at the time of the surgical pause, we confirmed the site and side of surgery. Additionally, we confirmed the appropriate and timely administration of preoperative antibiotics, Ancef 2 g and Transexemic acid 1 g.? Due to the elevated leukocyte Estrace, the patient was also given ciprofloxacin IV preoperatively. The availability of equipment was confirmed, and the patient's identity was verbalized as well.? An additional transexemic acid 1 g will be given on the floor as well. Following the surgical pause, an incision was made centering over the patella continuing proximally and distally as necessary to allow access to the knee joint. Dissection continued through skin and soft tissues using a scalpel. Hemostasis was obtained using electrocautery. The skin incision was followed by a median parapatellar arthrotomy. The leg was extended and the patella was able to be displaced laterally without difficulty.? Medial release was initially accomplished to allow placement for the Hermilo array.? Appropriate arrays and markers were placed in appropriate position for use of the Hermilo.? Preoperative planning had been accomplished and was discussed in detail with the [facility] telemarketing sales representative.? Intraoperative mapping of the femur and tibia was accomplished after the arrays were placed.? Internal markers were also placed.? Once we had accomplished the Hermilo mapping, we began the appropriate resections for placement of the prosthesis.? The plan was for a cruciate retaining right total knee arthroplasty.? Medial releases were accomplished prior to the surgical procedure to allow balancing of the knee. Once appropriate mapping had been accomplished retraction was established using manual retraction by surgical technicians and also the Hermilo leg positioner and retractors.? The knee was evaluated.? There was significant osteoarthritic change with significant osteophyte formation a significant varus and flexion deformity.? The tibia was cut first with the Hermilo.? Subsequently, appropriate bone resection of the femur was accomplished using the Hermilo.? The femur was sized to a size 3.? Osteophytes were removed prior to this portion of the procedure.? We had performed a medial release at the beginning of the procedure to allow for placement of the array and to allow for better planning with flexion and extension adjustments per Hermilo programming.? Following this resec tion, it was felt that appropriate size for the tibia was a size 3.? Tray was noted to fit nicely with good coverage.? Rim fit was accomplished with the size 3. As the knee was evaluated, it was noted to be quite osteopenic. Secondary to the concern of subsidence of prosthetic components, I elected to proceed with cemented components. The tourniquet was elevated, and appropriate prosthetic devices were brought into the room. Also of note, with manipulation of the knee, a portion of the medial collateral ligament pulled off the knee after the femoral cuts were made causing greater concern due to the osteopenic effects. A trial reduction was accomplished after osteophytes have been removed as well as the medial and lateral menisci.? We had removed the anterior cruciate ligament at the beginning of the case and preserved the posterior cruciate ligament.? Trial reduction was accomplished with a size 3 femoral cruciate retaining component and a size 3 tibial tray with a size 3 x 11 CS tibial bearing insert.? Alignment was felt to be appropriate.? Trial components were removed after the femur had been drilled.? Prior to removal of the tibial tray which had been pinned in position with appropriate rotation as determined by the Hermilo plan, we drilled and broached the tibia fourth the cemented tibia.? All trial components were removed, and the wound was irrigated.? Plans were made for insertion of the prosthetic components.? Prior to this, the patella was manually prepared.? After resection of the articular surface with the jogging system, it was measured and measured a 35 mm patella.? We resected approximately 8 mm of patella.? Patellar height was restored with the patellar component. Once again, the wound was irrigated.? It was noted that the medial collateral ligament was competent, but I had concerns regarding the small avulsion of bone. Plans were then made to place the anchor to repair the medial collateral ligament and reattach the bone. This anchor was to be placed after components have been cemented in place. Having prepared both the tibia and femur, preparation was made for cementing. The wound was copiously irrigated and the surfaces were dried. Exparel was injected as appropriate as well. Cementing was then accomplished first the tibia followed by the femur followed by the patella. In each case, excess cement was cleared from around the components as they were impacted into position and after the knee was fully extended. After the cement had fully cured, surfaces around the components were evaluated and any excess cement was cleared. The anchor was placed into the medial femoral condyle. It was impacted further into the canal after it tried to pull out of the osteopenic bone. We were, however, able to repair the bony avulsion with the medial collateral ligament. Plans were made at that time to limit flexion to 60 degrees at least for the initial onset of therapies.? Exparel was injected about the components deep and superficially.? The knee was then copiously irrigated with betadine and saline and suctioned dry.? Further irrigation was accomplished with saline following the Betadine.? Attention was then directed to closure. Closure was accomplished with 0 Vicryl in the fascial tissues.? This was followed by Surgiflo and vancomycin powder.? Following this, a 2-0 Monocryl was used in the subcutaneous tissues, and the skin was closed with skin michelle.? Care was taken to assure an excellent subcutaneous as well as skin closure.? A sterile dressing was then placed consisting of Dermabond Prineo, OpSite, sterile soft roll including over the foot, and an Carlos wrap. Patient was placed in a Heard brace set to 60 degrees of flexion with full extension. The patient was returned the Recovery Room in a satisfactory condition. X-rays were obtained and reviewed there.? The patient will be discharged to the floor for postoperative rehabilitation and pain management. Related Problem List Diagnoses (1) Primary osteoarthritis of left knee:
--- NOTE | 2023-05-22 14:39 | ANE.PACU2 ---
Inpatient post-anesthesia follow up: Airway intact: Yes Vital signs: Temperature 97.4 F Pulse Rate 83 Respiratory Rate 16 Blood Pressure 115/67 Pulse Oximetry 94 Oxygen Delivery Me thod Room Air Oxygen Flow Rate 4 Fraction of Inspir ed Oxygen Hydration adequate: Yes Nausea and vomiting: Yes Pain level: 1 Mental status: Baseline
[2023-05-22] MEDS: TRAMadol 50 mg Tablet 25 MG PO (15:45)
[2023-05-22] MEDS: gabapentin 100 mg Capsule PO ×2 (15:45→21:05)
--- NOTE | 2023-05-22 16:27 | PC.NURSE ---
Report given to nurse Muhammad on 2 [facility].
--- NOTE | 2023-05-22 16:55 | PC.NURSE ---
1640-pt transferred to room 261 via bed and care turned over to nurse adrian.
[2023-05-22] MEDS: ciprofloxacin 500 mg Tablet PO (21:05)
[2023-05-22] MEDS: TRAMadol 50 mg Tablet PO (21:06)
[2023-05-23] VITALS (11 sets, daily range): BP systolic 66–156; BP diastolic 36–79; PULSE 48–79; RESP 14–22; TEMP 36.4–37; O2SAT 92–98
[2023-05-23] MEDS: acetaminophen 325 mg Tablet 650 MG PO ×2 (06:06→17:07)
[2023-05-23] MEDS: TRAMadol 50 mg Tablet PO ×2 (06:08→17:07)
[2023-05-23] MEDS: ciprofloxacin 500 mg Tablet PO ×2 (08:52→21:08)
[2023-05-23] MEDS: gabapentin 100 mg Capsule PO ×2 (08:52→21:08)
--- NOTE | 2023-05-23 08:57 | PC.PHAR ---
Addendum entered by Marylou Sunshine 05/23/23 08:58: DISREGUARD PREVIOUS NOTE. DAUGHTER TAKES CARE OF MEDICATIONS. UNABLE TO MAKE CONTACT OF 8:55 AM. WILL CONTINUE TO REACH OUT Original Note: PT OUT FOR STRESS TEST UNTIL 9 AM. WILL RETURN TO FLOOR AT THAT TIME.
--- NOTE | 2023-05-23 09:08 | PC.OT ---
Patient just up with PT. Low BP while eating breakfast. RN helped back to bed. Will attempt eval in p.m.
[2023-05-23] MEDS: sodium chloride 0.9% 500 ML 200 ML IV (10:36)
--- NOTE | 2023-05-23 12:32 | PM.CONSULT ---
Providers/Reason For Consult Consulting Physician/Specialty*: Hospitalist Reason for Consult*: Hypotension Attending Physician: Leti Rodrigues MD Primary Care Provider: Bryan Calixto History of Present Illness History of Present Illness Marie Coe is a 87 year old female postop day [address] surgery by Dr[address] Martinez hospitalist service was consulted for postoperative management of hypotension. Patient looks extremely dry not complain of chest pain shortness of breath nausea or vomiting. No bowel movement yet, retaining urine, Jeffers catheter was placed, she was given IV fluids which improved her blood pressure, CBC and BMP requested Not complaining of pain, daughter at the bedside Medications/Allergies Home Medications Medication Instructions Recorded Confirmed Last Taken Type ascorbic acid 1,000 1,000 mg PO DAILY 07/19/20 05/21/23 05/21/23 History gn-rwbviguxvpjo-suygjazl powder effervescent pack (Emergen-C Immune Plus) ferrous fumarate 325 mg (106 mg 325 mg PO DAILY 07/19/20 05/21/23 05/21/23 History iron) tablet (Ferretts) folic acid 1 mg tablet 5 mg PO DAILY 07/19/20 05/21/23 05/21/23 History zinc acetate 25 mg (zinc) capsule 25 mg PO DAILY 07/19/20 05/23/23 05/21/23 History Custom Accomadative orthotic #1 ea 09/13/20 05/23/23 Unknown Rx SMO ankle brace #1 ea 10/26/20 05/23/23 Unknown Rx cholecalciferol (vitamin D3) 125 125 mcg PO DAILY 09/28/22 05/21/23 05/21/23 History mcg (5,000 unit) capsule gabapentin 100 mg capsule 300 mg PO DIRECTED 09/28/22 05/22/23 05/22/23 History loratadine 10 mg tablet (Claritin) 10 mg PO DAILY 09/28/22 05/21/23 05/21/23 History tolvaptan 15 mg tablet (Samsca) 15 mg PO DAILY #90 tabs 11/10/22 05/22/23 05/22/23 Rx metoprolol succinate 25 mg 25 mg PO DAILY #90 tabs 01/25/23 05/21/23 05/21/23 Rx tablet,extended release 24 hr omeprazole 20 mg capsule,delayed 20 mg PO BID 90 days #180 caps 01/25/23 05/21/23 05/21/23 Rx release montelukast 10 mg tablet 10 mg PO DAILY #90 tabs 01/26/23 05/21/23 05/21/23 Rx tramadol 50 mg tablet 25 mg PO BID PRN pain #30 tabs 02/06/23 05/21/23 05/21/23 Rx albuterol sulfate 90 mcg/actuation 2 inh inhalation Q6H PRN shortness 03/29/23 05/21/23 05/21/23 Rx aerosol inhaler of breath or wheezing #8.5 grams sodium chloride-potassium chloride 1 tab PO BID 04/02/23 05/21/23 05/21/23 History 287 mg-180 mg-15 mg tablet (Thermotabs) hydralazine 25 mg tablet 25 mg PO PRN PRN hypertension 05/21/23 05/21/23 Unknown History meclizine 25 mg tablet 25 mg PO PRN PRN dizziness 05/21/23 05/21/23 02/26/23 08:00 History losartan 50 mg tablet 25 mg PO DAILY 05/23/23 05/23/23 05/21/23 History magnesium oxide 500 mg tablet 500 mg PO DAILY 05/23/23 05/23/23 05/21/23 History omega-3 fatty acids 1,000 mg 1,000 mg PO DAILY 05/23/23 05/23/23 05/21/23 History capsule vit M69-vsaxcxbgf factor-folic 2 tab PO DAILY 05/23/23 05/23/23 05/21/23 History acid cmb#2 500 mcg-20 mg-800 mcg tablet Allergies Allergy/AdvReac Type Severity Reaction Status Date / Time oxycodone [From Percocet] Allergy Unknown Unknown Verified 05/07/23 14:32 Sulfa (Sulfonamide Allergy unknown Verified 05/07/23 14:32 Antibiotics) Current Medications Generic Name Dose Route Start Last Admin Trade Name Freq PRN Reason Stop Dose Admin Acetaminophen 650 mg 05/22/23 19:45 05/23/23 06:06 Acetaminophen 325 Mg Tablet PO 650 mg Q6H PRN Administration MILD PAIN Ciprofloxacin HCl 500 mg 05/22/23 21:00 05/23/23 08:52 Ciprofloxacin 500 Mg Tablet PO 500 mg BID@0900,2100 SARIKA Administration Protocol Gabapentin 100 mg 05/22/23 21:00 05/23/23 08:52 Gabapentin 100 Mg Capsule PO 100 mg BID@0900,2100 SARIKA Administration Sodium Chloride 500 mls @ 200 mls/hr 05/23/23 10:00 05/23/23 10:36 Sodium Chloride 0.9% IV 200 mls/hr .Q2H30M SARIKA Administration Tramadol HCl 50 mg 05/22/23 19:43 05/23/23 06:08 Tramadol 50 Mg Tablet PO 50 mg Q6H PRN Administration MODERATE PAIN PFSH Acute PFSH: Medical History Acute on chronic anemia Diabetes mellitus Diastolic CHF Dizziness Essential hypertension Gastroesophageal reflux Hearing loss Heart murmur Hypertensive urgency Hyponatremia chronic and is on Samsca and thermotabs Knee pain, bilateral Kyphosis Meniere's disease Rheumatoid arthritis Seasonal allergies Vitamin B12 deficiency Vitamin D deficiency Vomiting Surgical History H/O repair of rotator cuff H/O: hysterectomy History of carpal tunnel release History of hernia surgery History of partial surgical removal of colon Family History Father Azul Gehrig disease CAD (coronary artery disease) Mother Stroke Social History Smoking and tobacco status: never smoked Alcohol intake: never Substance/Drug Use: never Marital status: / Vitals/I&O/Wt Last Vital Signs Temp 97.5 F L 05/23/23 11:41 Pulse 72 05/23/23 11:41 Resp 22 H 05/23/23 11:41 BP 156/79 05/23/23 11:41 Pulse Ox 95 05/23/23 11:41 O2 Del Method Room Air 05/23/23 11:41 O2 Flow Rate 4 05/22/23 14:10 05/22/23 05/23/23 05/23/23 22:59 06:59 14:59 Intake Total 810 / 3070 480 / 480 Output Total 500 / 1150 550 / 1700 Balance 310 / 1920 -550 / 1370 480 / 480 Physical Exam Narrative: Patient is awake and alert Left knee without any significant swelling Bruise noted around her knee No active swelling or hematoma signs No sign of vascular compromise Clinically patient looks dehydrated S1, S2 GCS 15 Nonfocal neuro exam Pleasant and cooperative Daughter at the bedside Urinary Catheter Management: Jeffers: Cath Placed During This Visit: yes, but has since been removed by the nurse Reason for Continuing Indwelling Catheter: Decision to DC Catheter Urinary Catheter Date of Insertion: 05/22/23 Urinary Catheter Time of Insertion: 10:45 Date Urinary Catheter Removed: 05/23/23 Time Urinary Catheter Discontinued: 06:15 Data 05/23/23 13:21 05/24/23 05:35 A&P Assessment and plan (1) Primary osteoarthritis of left knee: (2) Hypomagnesemia: (3) Hypotension: (4) Dehydration: Plan Hypotension postoperative This seems to be related to hypovolemia and dehydration Continue IV fluid hydration for next 24 hours We will discontinue IV fluids by tomorrow Check CBC and BMP I will also check D-dimer Add DVT prophylaxis with Lovenox Hold antihypertensive regimen for today Diagnoses Primary osteoarthritis of left knee M17.12 Hypomagnesemia E83.42 Hypotension I95.9 Dehydration E86.0
--- NOTE | 2023-05-23 13:37 | P.PN_ITS ---
Subjective Subjective: Patient is seen in her room with her daughter. They are contemplating and considering between correction and home at time of discharge. Patient's daughter would like to see her come home, which she is advised that I have concerns given the significant limitation in ability to ambulate secondary to her opposite knee flexion contracture and significant degenerative osteoarthritis. She is encouraged to further consider correction. The patient has had a hypotensive episode and is demonstrating orthostatic hypotension. Consult is placed to the hospitalist team. Dr. Rivas has resp onded. Medications: Reviewed: Yes Vitals/I&O/Wt Last Vital Signs Temp 97.5 F L 05/23/23 11:41 Pulse 72 05/23/23 11:41 Resp 22 H 05/23/23 11:41 BP 156/79 05/23/23 11:41 Pulse Ox 95 05/23/23 11:41 O2 Del Method Room Air 05/23/23 11:41 O2 Flow Rate 4 05/22/23 14:10 05/22/23 05/23/23 05/23/23 22:59 06:59 14:59 Intake Total 810 / 3070 980 / 980 Output Total 500 / 1150 550 / 1700 Balance 310 / 1920 -550 / 1370 980 / 980 Physical Exam Narrative: Patient has overall deconditioning secondary to severe degenerative osteoarthritis in both lower extremities. She had a hypotensive episode today with attempts at ambulation. Const: COMMON NORMALS: no acute distress, average body habitus, patient oriented x3 and alert GENERAL APPEARANCE: cooperative and comfortable ORIENTATION/CONSCIOUSNESS: Yes awake HENMT: COMMON NORMALS: normocephalic and atraumatic HEAD & SCALP: normocephalic and atraumatic Eye: GENERAL EYE: appearance normal, both eyes and all related structures Chest: COMMONS NORMALS: normal inspection of the chest Resp: COMMON NORMALS: normal respiratory effort EFFORT & INSPECTION: Yes able to speak in complete sentences and Yes symmetric chest movement Extremity: RIGHT LOWER EXTREMITY: Yes knee joint (Significant knee flexion contracture limiting ambulation) LEFT LOWER EXTREMITY: Yes knee joint (Large outer dressing is removed. OpSite is dry.) Left knee: Yes inspection (Minimal ecchymosis and swelling.), Yes palpation (Minimal tenderness to palpation.), Yes ROM (Not evaluated.) and Yes neurovascular exam (Intact distally with no evidence of DVT.) Neuro: COMMON NORMALS: patient oriented x3 SENSORIUM/ORIENTATION: Yes alert Psych: COMMON NORMALS: mental status grossly normal APPEARANCE: Yes grossly normal ATTITUDE: Yes calm and Yes engaged ATTENTION/CONCENTRATION: Yes attention grossly intact Skin: COMMON NORMALS: no rashes or lesions noted GENERAL SKIN EXAM: no rashes or lesions noted Urinary Catheter Management: Jeffers: Cath Placed During This Visit: yes, but has since been removed by the nurse Reason for Continuing Indwelling Catheter: Decision to DC Catheter Urinary Catheter Date of Insertion: 05/22/23 Urinary Catheter Time of Insertion: 10:45 Date Urinary Catheter Removed: 05/23/23 Time Urinary Catheter Discontinued: 06:15 Data 05/23/23 13:21 05/24/23 05:35 A&P Assessment and plan (1) Status post total right knee replacement using cement: Patient underwent same-day surgery for right total knee arthroplasty yesterday. She has had having difficulty working with physical therapy secondary to weakness and overall deconditioning. She has a flexion contracture in her opposite knee which limits her ability to participate with physical therapy as well. The patient had a hypotensive episode this morning causing her to not be able to work with physical therapy. Dr. Rivas was consulted for evaluation, and he has responded and begun treatment. She is encouraged at the time of my visit to consider correction upon discharge, but her daughter is somewhat reluctant. She would like her to be able to come home. I have advised her that I feel she would be much safer if she were to participate in outpatient correction until she is stronger and better able to participate in physical therapy. The daughter states she will consider it and let us know. (2) Primary osteoarthritis of left knee: Attestations Medical Necessity Statement*: Ongoing care both medically and surgically following total knee arthroplasty. Coding Level of Care Code Acute Code for Chg Fwd Diagnoses Status post total right knee replacement using cement Z96.651 Primary osteoarthritis of left knee M17.12
[2023-05-23 13:50] LABS: Basophils # 0.1 10^3/uL (0.0-0.1); Basophils % 0.6 %; Eosinophils # 0.1 10^3/uL (0.0-0.8); Eosinophils % 0.7 %; Hematocrit 28.7 % (37.0-47.0); Hemoglobin 9.3 g/dL (11.5-15.3); Lymphocytes # 0.6 10^3/uL (0.8-4.8); Lymphocytes % 5.5 %; Mean Corpuscular HGB Conc 32.4 g/dL (30.0-36.0); Mean Corpuscular Hemoglobin 31.4 pg (28.0-34.0); Mean Platelet Volume 9.4 fL (7.4-10.4); Monocytes # 1.1 10^3/uL (0.2-0.9); Neutrophils # 9.06 10^3/uL (1.8-7.7); Neutrophils % 82.8 %; Nucleated Red Blood Cells % 0 %; Platelet Count 206 10^3/cmm (130-400); Red Blood Count 2.96 10^6/uL (4.1-5.3); Red Cell Distribution Width 13.1 % (12.1-15.1); White Blood Count 10.9 10^3/uL (4.0-10.0)
[2023-05-23 14:03] LABS: Anion Gap 17.4 (5-19); Blood Urea Nitrogen 22 mg/dL (8-23); Calcium 8.1 mg/dL (8.5-10.5); Carbon Dioxide 18 mmol/L (22-29); Chloride 100 mmol/L (98-107); Glucose 182 mg/dL (65-115); Osmolality Calculated 280 mOsm/kg (285-295); Potassium 4.4 mmol/L (3.5-5.1); Sodium 131 mmol/L (136-145)
[2023-05-23] MEDS: ondansetron 2 mg/ML SDV 2 mL 4 MG IVP (15:05)
[2023-05-23] MEDS: mupirocin oint 22 gm 1 APPLIC TOPICAL (17:08)
[2023-05-23] MEDS: pantoprazole DR 40 mg Tablet PO (21:08)
[2023-05-23] MEDS: enoxaparin 40 mg/0.4 mL Syringe SUBCUT (21:08)
[2023-05-24] VITALS (10 sets, daily range): BP systolic 129–157; BP diastolic 63–85; PULSE 73–85; RESP 15–18; TEMP 36.4–37; O2SAT 92–98
[2023-05-24 06:21] LABS: Anion Gap 13.5 (5-19); Blood Urea Nitrogen 19 mg/dL (8-23); Calcium 7.9 mg/dL (8.5-10.5); Carbon Dioxide 22 mmol/L (22-29); Chloride 98 mmol/L (98-107); Glucose 131 mg/dL (65-115); Osmolality Calculated 272 mOsm/kg (285-295); Potassium 4.5 mmol/L (3.5-5.1); Sodium 129 mmol/L (136-145)
[2023-05-24 06:22] LABS: Creatinine Clr Calc Pharmacy 33.5521
[2023-05-24] MEDS: amlodipine 5 mg Tablet PO (09:41)
[2023-05-24] MEDS: cholecalciferol (vitamin D3) 5,000 unit Tablet 5000 UNIT PO (09:42)
[2023-05-24] MEDS: ciprofloxacin 500 mg Tablet PO ×2 (09:42→20:37)
[2023-05-24] MEDS: metoprolol succinate ER (24 HR) 25 mg Tablet PO (09:42)
[2023-05-24] MEDS: gabapentin 100 mg Capsule PO (09:42)
[2023-05-24] MEDS: pantoprazole DR 40 mg Tablet PO ×2 (09:42→17:16)
[2023-05-24] MEDS: folic acid 1 mg Tablet 5 MG PO (09:42)
[2023-05-24] MEDS: acetaminophen 325 mg Tablet 650 MG PO ×2 (09:43→15:56)
[2023-05-24] MEDS: TRAMadol 50 mg Tablet PO ×2 (09:43→15:56)
[2023-05-24] MEDS: mupirocin oint 22 gm 1 APPLIC TOPICAL ×2 (09:44→17:16)
--- NOTE | 2023-05-24 10:48 | PC.CHAP ---
Pastoral Care Encounter/Spiritual Assessment Type of Contact [] Declined process specialist visit [] Patient/Family/Request visit [] Outpatient visit [] Follow-up visit [] Physician referral [] Code/Alert [x] Routine visit [] Staff referral [] Actively dying [] Patient sleeping [] Family support [] [] Out of room [] Palliative care [] [x] Receiving care in room [] Pre-surgical visit [] Trauma [] Long length of stay [] ICU visit [] Other: Relational/Emotional Strength [x] Patient feels connected with others/family/visitors/staff [] Distress [] Loneliness/isolation [] Abandonment Spirituality of Patient [x] Person of Desire [] Attends Yarsanism of their Desire [x] Believes in Prayer [] Reads Bible or Mandaen materials [] There are Spiritual issues to be addressed Page Designer Interventions [x] Prayer [x] Active listening [x] Non-anxious presence [x] Spiritual/emotional support [] Crisis/trauma care [x] Spiritual counseling [] Bereavement support [] Provided bereavement packet [] Provided Bible/devotional materials [] Provided toy/stuffed animal, coloring book to patient or family member [] Provided Communion [] Anointing/[place] [] Salvation [x] Completed spiritual assessment [] Other: Impact on Illness or Injury [] Angry [] Fearful [] Anxious [] Often cries [] Exhaustion [] Unable to work [] Unable to attend gnosticist [] Unable to walk/stand [] Unable to read [] Unable to drive [] Unable to eat/drink [] Unable to sleep [] Unable to be with family [] Patient intubated [] Other: Summary not suer about health waiting on doctors report has a good attitude well go home Time spent with patient 5 mins
--- NOTE | 2023-05-24 11:40 | PM.PN ---
Subjective Subjective: Patient is hypertensive today Turn off IV fluids Add antihypertensive regimen Hold SATNAM inhibitor creatinine 1.1 Hemoglobin slightly lower than baseline No overnight events Patient was going to the bathroom this morning with the help of her nurse and I went to see her Vitals/I&O/Wt Last Vital Signs Temp 97.6 F 05/24/23 08:00 Pulse 73 05/24/23 08:00 Resp 15 05/24/23 08:00 BP 129/74 05/24/23 08:00 Pulse Ox 94 05/24/23 08:00 O2 Del Method Room Air 05/24/23 04:00 O2 Flow Rate 4 05/22/23 14:10 05/23/23 05/24/23 05/24/23 22:59 06:59 14:59 Intake Total 960 / 1940 240 / 240 Output Total 725 / 725 550 / 1275 Balance 235 / 1215 -550 / 665 240 / 240 Physical Exam Narrative: No new complaints Signs of dehydration improving Abdomen soft GCS 15 Nonfocal neuro exam S1, S2 Currently on room air left leg in brace Urinary Catheter Management: Jeffers: Cath Placed During This Visit: yes, but has since been removed by the nurse Reason for Continuing Indwelling Catheter: Acute Urinary Retention or Obstruction Urinary Catheter Date of Insertion: 05/23/23 Urinary Catheter Time of Insertion: 16:00 Date Urinary Catheter Removed: 05/23/23 Time Urinary Catheter Discontinued: 06:15 Data 05/23/23 13:21 05/24/23 05:35 A&P Assessment and plan (1) Dehydration: (2) Hypotension: (3) Essential hypertension: (4) Primary osteoarthritis of knees, bilateral: Plan Postop day 2 status post left total knee arthroplasty Slight drop in hemoglobin Her hypotension was related to dehydration which improved significantly with IV fluid hydration Today my plan is to discontinue IV fluids She is hypertensive today, I will hold SATNAM inhibitor and give her antihypertensive regimen to keep her blood pressure below 140 mmhg Patient is willing to go to rehab/SNF I have added DVT prophylaxis yesterday Working with PT Pain well managed Monitor for BM, add tami Garcia Attestations Medical Necessity Statement*: Awaiting placement Diagnoses Dehydration E86.0 Hypotension I95.9 Essential hypertension I10 Primary osteoarthritis of knees, bilateral M17.0
--- NOTE | 2023-05-24 12:19 | P.PN_ITS ---
Subjective Subjective: The patient is seen today, but her daughter is not present. According to nursing and case management, they have decided to proceed with senior care at time of discharge. I have advised the patient that I am encouraged that they have made this decision. Medications: Reviewed: Yes Vitals/I&O/Wt Last Vital Signs Temp 97.6 F 05/24/23 08:00 Pulse 73 05/24/23 08:00 Resp 15 05/24/23 08:00 BP 129/74 05/24/23 08:00 Pulse Ox 94 05/24/23 08:00 O2 Del Method Room Air 05/24/23 04:00 O2 Flow Rate 4 05/22/23 14:10 05/23/23 05/24/23 05/24/23 22:59 06:59 14:59 Intake Total 960 / 1940 240 / 240 Output Total 725 / 725 550 / 1275 Balance 235 / 1215 -550 / 665 240 / 240 Physical Exam Narrative: Patient has overall deconditioning secondary to severe degenerative osteoarthritis in both lower extremities. She had a hypotensive episode yesterday with attempts at ambulation. She has actually improved today and was slightly hypertensive. Const: COMMON NORMALS: no acute distress, average body habitus, patient oriented x3 and alert GENERAL APPEARANCE: cooperative and comfortable ORIENTATION/CONSCIOUSNESS: Yes awake HENMT: COMMON NORMALS: normocephalic and atraumatic HEAD & SCALP: normocephalic and atraumatic Eye: GENERAL EYE: appearance normal, both eyes and all related structures Chest: COMMONS NORMALS: normal inspection of the chest Resp: COMMON NORMALS: normal respiratory effort EFFORT & INSPECTION: Yes able to speak in complete sentences and Yes symmetric chest movement Extremity: RIGHT LOWER EXTREMITY: Yes knee joint (Significant knee flexion contracture limiting ambulation) LEFT LOWER EXTREMITY: Yes knee joint (Patient remains in knee immobilizer with Carlos wrap for incision protection) Left knee: Yes inspection (Minimal ecchymosis and swelling.), Yes palpation (Minimal tenderness to palpation.), Yes ROM (Not evaluated.) and Yes neurovascular exam (Intact distally with no evidence of DVT.) Neuro: COMMON NORMALS: patient oriented x3 SENSORIUM/ORIENTATION: Yes alert Psych: COMMON NORMALS: mental status grossly normal APPEARANCE: Yes grossly normal ATTITUDE: Yes calm and Yes engaged ATTENTION/CONCENTRATION: Yes attention grossly intact Skin: COMMON NORMALS: no rashes or lesions noted GENERAL SKIN EXAM: no rashes or lesions noted Urinary Catheter Management: Jeffers: Cath Placed During This Visit: yes, but has since been removed by the nurse Reason for Continuing Indwelling Catheter: Acute Urinary Retention or Obstruct ion Urinary Catheter Date of Insertion: 05/23/23 Urinary Catheter Time of Insertion: 16:00 Date Urinary Catheter Removed: 05/23/23 Time Urinary Catheter Discontinued: 06:15 Data 05/23/23 13:21 05/24/23 05:35 A&P Assessment and plan (1) Status post total right knee replacement using cement: Patient underwent same-day surgery for right total knee arthroplasty on May 22, 2023. She has had having difficulty working with physical therapy secondary to weakness and overall deconditioning. She has a flexion contracture in her opposite knee which limits her ability to participate with physical therapy as well. Dr. Rivas was consulted for evaluation, and he has responded and begun treatment. Today, the patient is slightly hypertensive. Medications and medical evaluation are proceeding under the care of Dr. Rivas. The patient and her daughter have made the decision to seed with senior care at time of discharge. I have supported them strongly in this decision. (2) Primary osteoarthritis of left knee: Attestations Medical Necessity Statement*: Ongoing medical care following total knee arthroplasty with physical therapy. Coding Level of Care Code Acute Code for Chg Fwd Diagnoses Status post total right knee replacement using cement Z96.651 Primary osteoarthritis of left knee M17.12
[2023-05-24] MEDS: HYDROcodone-acetaminophen 5-325 mg Tablet 1 TAB PO (17:15)
[2023-05-24 17:27] LABS: D Dimer 1.12 ug/mIFEU (0-0.59)
--- NOTE | 2023-05-24 17:44 | USCV_ITS ---
Marie Coe Age: 87 Gender: F : 1935 Exam Date: 05/24/2023 18:09 Ordering Phys: Quincy Rivas MD Technologist: [email or web address] [place] [facility] [place]: BLE edema s/p LEFT total knee yesterday. No history of DVT per patient. HISTORY: BLE edema s/p LEFT total knee yesterday. No history of DVT per patient. PROCEDURES: Venous duplex imaging was performed in bilateral lower extremities. The following venous structures were evaluated: common femoral vein, profunda vein, proximal portion of the greater saphenous vein, superficial femoral vein, and the popliteal vein. In addition, the posterior tibial veins were evaluated. Serial compression, augmentation maneuvers, and spectral Doppler flow evaluation were performed, which were normal. Bilaterally, the common femoral, superficial femoral, profunda femoral, popliteal, posterior tibial, and greater saphenous veins were identified and interrogated in the standard fashion. These veins were found to be easily compressible with spontaneous blood flow. No evidence of thrombus noted. CONCLUSIONS No evidence of right lower extremity DVT. No evidence of left lower extremity DVT. Ajith Castillo MD (Electronically Signed) Final Date: 25 May 2023 09:09 S
[2023-05-24] MEDS: diphenhydrAMINE 50 mg/mL SDV 1mL 25 MG IVP (20:15)
[2023-05-24] MEDS: enoxaparin 40 mg/0.4 mL Syringe SUBCUT (20:37)
--- NOTE | 2023-05-24 20:39 | PC.NURSE ---
Patient's daughter reported to this nurse that patient was having a possible reaction to hydrocodone. This nurse went into patient's room, patient appeared flushed and reported that she felt hot, dizzy and nauseas. Vital signs stable. The daughter reported that this was what happened when she had a reaction to oxycodone. Dr. Walsh was notified and ordered benadryl 25 mg IVP. About ten minutes after administration of benadryl patient reported feeling better and is no longer flushed. Hydrocodone was discontinued and placed on allergy list.
--- NOTE | 2023-05-24 20:45 | PC.NURSE ---
Patient is refusing chest CTA tonight stating she would like to wait until morning so she can sleep. Patient and daughter educated on indication for scan and would still like to wait until morning.
[2023-05-25 03:45] VITALS: BP 131/55; PULSE 80; RESP 18; TEMP 36.3; O2SAT 91
[2023-05-25] MEDS: gabapentin 300 mg Capsule PO (05:07)
[2023-05-25 05:39] VITALS: PULSE 79
[2023-05-25 05:54] LABS: Basophils # 0.1 10^3/uL (0.0-0.1); Basophils % 0.5 %; Eosinophils # 0.2 10^3/uL (0.0-0.8); Eosinophils % 1.6 %; Hematocrit 25.9 % (37.0-47.0); Hemoglobin 8.2 g/dL (11.5-15.3); Lymphocytes % 9.2 %; Mean Corpuscular HGB Conc 31.7 g/dL (30.0-36.0); Mean Corpuscular Hemoglobin 30.6 pg (28.0-34.0); Mean Corpuscular Volume 96.6 fl (81-99); Mean Platelet Volume 9.3 fL (7.4-10.4); Monocytes % 9.1 %; Neutrophils % 79.1 %; Nucleated Red Blood Cells % 0 %; Platelet Count 187 10^3/cmm (130-400); Red Blood Count 2.68 10^6/uL (4.1-5.3); Red Cell Distribution Width 13.1 % (12.1-15.1); White Blood Count 10.6 10^3/uL (4.0-10.0)
[2023-05-25 06:22] LABS: Anion Gap 14.5 (5-19); Blood Urea Nitrogen 16 mg/dL (8-23); Calcium 7.7 mg/dL (8.5-10.5); Carbon Dioxide 22 mmol/L (22-29); Chloride 98 mmol/L (98-107); Glucose 115 mg/dL (65-115); Osmolality Calculated 272 mOsm/kg (285-295); Potassium 4.5 mmol/L (3.5-5.1); Sodium 130 mmol/L (136-145)
[2023-05-25 06:24] LABS: Creatinine Clr Calc Pharmacy 33.5521
[2023-05-25 07:39] VITALS: BP 130/74; PULSE 53; RESP 18; TEMP 36.6; O2SAT 94
[2023-05-25] MEDS: folic acid 1 mg Tablet 5 MG PO (08:11)
[2023-05-25] MEDS: amlodipine 5 mg Tablet PO (08:12)
[2023-05-25] MEDS: metoprolol succinate ER (24 HR) 25 mg Tablet PO (08:12)
[2023-05-25] MEDS: lactulose oral liq 20 gm/30 mL UDC 10 GM PO (08:12)
[2023-05-25] MEDS: cholecalciferol (vitamin D3) 5,000 unit Tablet 5000 UNIT PO (08:12)
[2023-05-25] MEDS: pantoprazole DR 40 mg Tablet PO (08:12)
[2023-05-25] MEDS: sennosides-docusate Tablet 1 TAB PO (08:12)
[2023-05-25] MEDS: TRAMadol 50 mg Tablet PO ×2 (08:17→15:36)
[2023-05-25] MEDS: ciprofloxacin 500 mg Tablet PO (08:17)
[2023-05-25] MEDS: iohexol 350 mg/mL 500 mL Btl (per mL) IV (09:57)
--- NOTE | 2023-05-25 10:48 | PM.PN ---
Subjective Subjective: Patient was complaining of pain 10 out of 10 She was given opioids Her pressure has improved Bradycardia noted, hold metoprolol No signs of PE or DVT She is medically cleared to be discharged to a care home once accepted Patient was asking for gabapentin which has been optimized to her home regimen For her hyponatremia I have continued salt tablets that she was taking at home I would also continue tolvaptan No need of IV fluids Hiatal hernia noted on CT scan with GERD related changes, Vitals/I&O/Wt Last Vital Signs Temp 97.8 F 05/25/23 07:39 Pulse 53 L 05/25/23 07:39 Resp 18 05/25/23 07:39 BP 130/74 05/25/23 07:39 Pulse Ox 94 05/25/23 07:39 O2 Del Method Room Air 05/24/23 12:00 O2 Flow Rate 4 05/22/23 14:10 05/24/23 05/25/23 05/25/23 22:59 06:59 14:59 Intake Total 360 / 840 240 / 240 Output Total 2075 / 2075 550 / 2625 Balance -1715 / -1235 -550 / -1785 240 / 240 Physical Exam Narrative: Patient is on room air Complaining of pain in her left knee GCS 15 Nonfocal neuro exam Hemodynamically stable Awake and alert Abdomen soft Clinically euvolemic trace edema around knees otherwise not significant no signs of vascular compromise Urinary Catheter Management: Jeffers: Cath Placed During This Visit: yes, but has since been removed by the nurse Reason for Continuing Indwelling Catheter: Acute Urinary Retention or Obstruction Urinary Catheter Date of Insertion: 05/23/23 Urinary Catheter Time of Insertion: 16:00 Date Urinary Catheter Removed: 05/23/23 Time Urinary Catheter Discontinued: 06:15 Data 05/25/23 05:21 05/25/23 05:21 A&P Assessment and plan (1) Dehydration: (2) Hypotension: (3) Primary osteoarthritis of left knee: (4) Hypomagnesemia: (5) Essential hypertension: (6) Rheumatoid arthritis: Qualifiers: Rheumatoid arthritis location: multiple sites Rheumatoid factor presence: unspecified presence Qualified Code(s): M06.9 - Rheumatoid arthritis, unspecified (7) Chronic hyponatremia: Plan No signs of DVT or PE Blood pressure has been stabilized Antihypertensive regimen optimized Gabapentin resumed DVT prophylaxis on board Metoprolol hold for bradycardia Patient is medically cleared to be discharged to care home once accepted Creatinine seems to be stable around 1.9 Chronic hyponatremia continue salt tablets and tolvaptan Full code Regular diet continue PT Attestations Medical Necessity Statement*: Medicine team will follow along until discharge Diagnoses Dehydration E86.0 Hypotension I95.9 Primary osteoarthritis of left knee M17.12 Hypomagnesemia E83.42 Essential hypertension I10 Rheumatoid arthritis M06.9 Rheumatoid arthritis location: multiple sites Rheumatoid factor presence: unspecified presence Chronic hyponatremia E87.1
[2023-05-25] MEDS: gabapentin 100 mg Capsule PO (11:13)
[2023-05-25] MEDS: sodium chloride 1 gm Tablet PO (11:13)
[2023-05-25] MEDS: HYDROmorphone 1 mg/mL INJ 1 mL 0.4 MG IVP (11:13)
[2023-05-25 12:00] VITALS: TEMP 36.9
--- NOTE | 2023-05-25 12:37 | P.DS_ITS ---
Discharge Providers Date of Admission: 05/23/23 18:12 Date of Discharge: May 25, 2023 Attending Provider at Admission: Leti Rodrigues MD Attending Provider at Discharge: Leti Rodrigues MD Consults: Dr. Quincy Rivas Primary Care Provider: Bryan Calixto Diagnoses at Discharge Discharge Diagnosis (1) Status post total left knee replacement using cement: Status: Acute Permanent problem details: Date of procedure: May 22, 2023 Diagnosis: Primary osteoarthritis left knee with flexion contracture and varus deformity Procedure done: Left total knee arthroplasty with Hermilo guidance Implants: The [email or web address] total knee system with a size 3 triathlon cruciate retaining left femur, cemented, a triathlon universal tibial component size 3, cemented, a triathlon X3 tibial bearing CS insert size 3 X 11 mm and a cemented triathlon asymmetric patella size 35 x 10 mm. Biosteon Intraline 5.5mm Suture anchor with #2 Force Fiber (2) Primary osteoarthritis of left knee: Status: Chronic (3) Dehydration: Status: Acute (4) Hypotension: Status: Acute (5) Hypomagnesemia: Status: Acute (6) Essential hypertension: Status: Acute (7) Rheumatoid arthritis: Status: Acute Qualifiers: Rheumatoid arthritis location: multiple sites Rheumatoid factor presence: unspecified presence Qualified Code(s): M06.9 - Rheumatoid arthritis, unspecified (8) Chronic hyponatremia: Status: Acute Reason for Visit Reason for Visit: M17.10 Brief History: This 87-year-old woman has been followed in my office over the past several years.? The patient had severe degenerative osteoarthritic change with in both knees.? She continues to receive injection therapies in the form of gel 1 and cortisone.? These stopped working for her, and she wished to discuss further opt ions.? She had significant limitations in her activities of daily living, and most recently, she has limited her walking severely secondary to knee pain.? Because of this, the patient wished to proceed.? Risks and complications were discussed with the patient and her daughter.? Consents were signed and the patient was scheduled for total knee arthroplasty. Hospital Course Hospital Course This 87-year-old woman was admitted for same-day surgery in the form of left total knee arthroplasty. The procedure was to be done with Hermilo guidance. Initially, plans were made for a total knee arthroplasty without cement. Upon the surgical procedure, however, the patient was found to have very soft bone. Intact, the medial collateral ligament partially from the bone secondary to major stresses of the surgical procedure. For this reason, we placed a cemented total knee arthroplasty. This was accomplished without difficulty. An anchor was also used in an attempt to reattach the anterior portion of the medial collateral ligament. The anchor, however, did not give a great bite into the bone. Therefore, the patient was placed in a Rikki brace and will limit mobility to 60 degrees of flexion. The patient was seen in the hospital, and on the first postoperative day, she suffered with orthostatic hypo tension. The hospitalist team was consulted and managed her medical issues from that point forward. Initial consultation noted hypomagnesemia, hypotension, and dehydration. On the second postoperative day, the patient became hypertensive, and this also was treated by the hospitalist team. She demonstrated slight drop in her hemoglobin as would be expected with surgical procedure and rehydration. Discussion was undertaken as to whether or not assisted would benefit the patient. The family initially was reluctant but subsequently agreed to have the patient discharged to assisted. Arrangements were made for this plan. On the third postoperative day, 25 May, pressure had improved. There is no evidence of DVT or PE. The patient was therefore cleared for transfer to [facility] nursing if she was accepted. At the time of this note, acceptance is still pending. Overall, the patient did well without complication aside from blood pressure issues following her surgical procedure. Her opposite right knee which has a flexion contracture and severe degenerative osteoarthritis is also limiting her ability to ambulate and participate in physical therapy. Physical Exam Narrative: Patient has overall deconditioning secondary to severe degenerative osteoarthritis in both lower extremities. She had a hypotensive episode on the first postoperative day with attempts at ambulation. She improved on the second postoperative day and was slightly hypertensive. On the third postoperative day, the patient was felt stable for discharge to assisted and orders were placed. Const: COMMON NORMALS: no acute distress, average body habitus, patient oriented x3 and alert GENERAL APPEARANCE: cooperative and comfortable ORIENTATION/CONSCIOUSNESS: Yes awake HENMT: COMMON NORMALS: normocephalic and atraumatic HEAD & SCALP: normocephalic and atraumatic Eye: GENERAL EYE: appearance normal, both eyes and all related structures Chest: COMMONS NORMALS: normal inspection of the chest Resp: COMMON NORMALS: normal respiratory effort EFFORT & INSPECTION: Yes able to speak in complete sentences and Yes symmetric chest movement Extremity: RIGHT LOWER EXTREMITY: Yes knee joint (Significant knee flexion contracture limiting ambulation) LEFT LOWER EXTREMITY: Yes knee joint (Patient remains in knee immobilizer with Carlos wrap for incision protection) Left knee: Yes inspection (Minimal ecchymosis and swelling.), Yes palpation (Minimal tenderness to palpation.), Yes ROM (Not evaluated.), Yes neurovascular exam (Intact distally with no evidence of DVT.) and Yes other (Gentle range of motion is painful for the patient.) Neuro: COMMON NORMALS: patient oriented x3 SENSORIUM/ORIENTATION: Yes alert Psych: COMMON NORMALS: mental status grossly normal APPEARANCE: Yes grossly normal ATTITUDE: Yes calm and Yes engaged ATTENTION/CONCENTRATION: Yes attention grossly intact Skin: COMMON NORMALS: no rashes or lesions noted GENERAL SKIN EXAM: no rashes or lesions noted Urinary Catheter Management: Jeffers: Cath Placed During This Visit: yes, but has since been removed by the nurse Reason for Continuing Indwelling Catheter: Acute Urinary Retention or Obstruction Urinary Catheter Date of Insertion: 05/23/23 Urinary Catheter Time of Insertion: 16:00 Date Urinary Catheter Removed: 05/23/23 Time Urinary Catheter Discontinued: 06:15 Discharge Data Studies Completed and Pending Completed Studies During Hospitalization Category Date Time Status CT angio chest 18752 Routine Cat Scan 05/25/23 17:44 Completed XR knee LT 1-2V 92020 Routine Exams 05/22/23 14:05 [place] [id number] Routine Ultrasound 05/24/23 17:44 Completed Radiology Impressions Knee X-Ray 05/22/23 14:05 IMPRESSION: Stable appearance of the recent total knee arthroplasty. Chest CTA 05/25/23 17:44 IMPRESSION: 1. Proximal main pulmonary arteries are normal. No evidence of pulmonary embolus. 2. Trace bilateral pleural fluid. Bibasilar atelectasis. 3. Small esophageal hiatal hernia. Air-fluid levels in distended stomach. Fluid in the distal esophagus. 4. No other acute findings. Laboratory Results WBC 10.6 10^3/uL (4.0-10.0) H 05/25/23 05:21 RBC 2.68 10^6/uL (4.1-5.3) L 05/25/23 05:21 Hgb 8.2 g/dL (11.5-15.3) L 05/25/23 05:21 Hct 25.9 % (37.0-47.0) L 05/25/23 05:21 MCV 96.6 fl (81-99) 05/25/23 05:21 MCH 30.6 pg (28.0-34.0) 05/25/23 05:21 MCHC 31.7 g/dL (30.0-36.0) 05/25/23 05:21 RDW 13.1 % (12.1-15.1) 05/25/23 05:21 Plt Count 187 10^3/cmm (130-400) 05/25/23 05:21 MPV 9.3 fL (7.4-10.4) 05/25/23 05:21 Neut % (Auto) 79.1 % 05/25/23 05:21 Lymph % (Auto) 9.2 % 05/25/23 05:21 Sumner % (Auto) 9.1 % 05/25/23 05:21 Eos % (Auto) 1.6 % 05/25/23 05:21 Baso % (Auto) 0.5 % 05/25/23 05:21 Neut # (Auto) 8.40 10^3/uL (1.8-7.7) H 05/25/23 05:21 Lymph # (Auto) 1.0 10^3/uL (0.8-4.8) 05/25/23 05:21 Sumner # (Auto) 1.0 10^3/uL (0.2-0.9) H 05/25/23 05:21 Eos # (Auto) 0.2 10^3/uL (0.0-0.8) 05/25/23 05:21 Baso # (Auto) 0.1 10^3/uL (0.0-0.1) 05/25/23 05:21 Nucleated RBC % (auto) 0 % 05/25/23 05:21 Nucleated RBCs # 0.0 /100WBC 05/25/23 05:21 D-Dimer 1.12 ug/mIFEU (0-0.59) H 05/24/23 17:02 Sodium 130 mmol/L (136-145) L 05/25/23 05:21 Potassium 4.5 mmol/L (3.5-5.1) 05/25/23 05:21 Chloride 98 mmol/L (98-107) 05/25/23 05:21 Carbon Dioxide 22 mmol/L (22-29) 05/25/23 05:21 Anion Gap 14.5 (5-19) 05/25/23 05:21 BUN 16 mg/dL (8-23) 05/25/23 05:21 Creatinine 1.1 mg/dL (0.5-0.9) H 05/25/23 05:21 GFR Calculation Not Reportable 05/25/23 05:21 Glucose 115 mg/dL (65-115) 05/25/23 05:21 Calculated Osmolality 272 mOsm/kg (285-295) L 05/25/23 05:21 Calcium 7.7 mg/dL (8.5-10.5) L 05/25/23 05:21 Vitals Last Vital Signs Temp 97.8 F 05/25/23 07:39 Pulse 53 L 05/25/23 07:39 Resp 18 05/25/23 07:39 BP 130/74 05/25/23 07:39 Pulse Ox 94 05/25/23 07:39 O2 Del Method Room Air 05/24/23 12:00 O2 Flow Rate 4 05/22/23 14:10 Discharge Plan Discharge Patient Disposition: Xfer SNF Condition: Stable Prescriptions: New morphine 15 mg tablet extended release 15 mg PO Q12H Qty: 20 0RF pantoprazole [Protonix] [address] for susp in packet 40 mg PO BID Qty: 30 3RF aspirin 325 mg tablet 325 mg PO BID 28 Days Qty: 56 0RF sennosides-docusate sodium [Senna-S] 8.6-50 mg tablet 1 tab-cap PO DAILY Qty: 30 0RF Continued zinc acetate 25 mg (zinc) capsule 25 mg PO DAILY Rx Instructions: swallow whole; do not chew/break/dissolve/open folic acid 1 mg tablet 5 mg PO DAILY Ferretts 325 mg (106 mg iron) tablet 325 mg PO DAILY Emergen-C Immune Plus 1,000 mg powder effervescent in packet 1,000 mg PO DAILY gabapentin 100 mg capsule 300 mg PO QAM (DME) Custom Accomadative orthotic See Rx Instructions .ROUTE .MEDSUPPLY Qty: 1 0RF Rx Instructions: with rear foot post on left metoprolol succinate 25 mg tablet extended release 24 hr 25 mg PO DAILY Qty: 90 3RF omeprazole 20 mg capsule,delayed release(DR/EC) 20 mg PO BID 90 Days Qty: 180 3RF albuterol sulfate 90 mcg/actuation HFA aerosol inhaler 2 inh inhalation Q6H PRN (Reason: shortness of breath or wheezing) Qty: 8.5 4RF cholecalciferol (vitamin D3) 125 mcg (5,000 unit) capsule 125 mcg PO DAILY loratadine [Claritin] 10 mg tablet 10 mg PO DAILY (DME) SMO ankle brace See Rx Instructions .Route .MEDSUPPLY Qty: 1 0RF Rx Instructions: As directed Samsca 15 mg tablet 15 mg PO DAILY Qty: 90 3RF montelukast 10 mg tablet 10 mg PO DAILY Qty: 90 3RF tramadol 50 mg tablet 25 mg PO BID PRN (Reason: pain) Qty: 30 2RF Thermotabs 287-180-15 mg tablet 1 tab PO BID Hold Instructions: Doctor's Order hydralazine 25 mg tablet 25 mg PO PRN PRN (Reason: hypertension) Rx Instructions: for SBP >180 meclizine 25 mg tablet 25 mg PO PRN PRN (Reason: dizziness) losartan 50 mg tablet 25 mg PO DAILY omega-3 fatty acids 1,000 mg Capsule 1,000 mg PO DAILY magnesium oxide 500 mg Tablet 500 mg PO DAILY vit [id number] fact-FA cmb #2 500-20-800 mcg-mg-mcg Tablet 2 tab PO DAILY gabapentin 100 MG 100 mg PO QNOON gabapentin 100 MG 100 mg PO QPM Discharge Orders: Discharge Order (Routine); Ordered 05/25/23 Ordered By: Quincy Rivas Other Ambulatory Orders: DME: Walker (Order) Location: None Selected Ordered By: Leti Rodrigues Referrals: [facility] [Outside] Leti Rodrigues MD [Physician] - 06/04/23 1:00 pm Bryan Calixto NP [Primary Care Provider] - 05/30/23 11:00 am Discharge Diet: Advance as tolerated and Usual diet Discharge Activity: Limit activity as instructed, Use walker/crutches as instructed and As per PT/OT instructions Patient Instructions: Opioid Safety Activity Restrictions/Additional Instructions: Patient may be weightbearing as tolerated in her [place] brace. Limit range of motion to 60 degrees of flexion with full extension. Patient is to wear the [place] brace in bed and when up and ambulating. Maintain clear plastic dressing over the knee joint. You may change the Carlos wrap as needed. May change Carlos wrap to long ELINA hose to protect the incision in the brace. Patient may shower, but again do not remove patient's postoperative dressing. Discharge Attestations Time Spent in Discharge Care*: greater than 30 min Specific Discharge Activities: educating patient, documenting/other paperwork and evaluating patient/reviewing data Quality Metrics Clinical Quality Measures [ No reported AMI, CVA or VTE this stay] Coding Level of Care Code Acute Code for Chg Fwd Diagnoses Status post total left knee replacement using cement Z96.652 Primary osteoarthritis of left knee M17.12 Dehydration E86.0 Hypotension I95.9 Hypomagnesemia E83.42 Essential hypertension I10 Rheumatoid arthritis M06.9 Rheumatoid arthritis location: multiple sites Rheumatoid factor presence: unspecified presence Chronic hyponatremia E87.1
--- NOTE | 2023-05-25 17:44 | CT_ITS ---
WS: [id number] CTA THORACIC TECHNIQUE: Contrast enhanced CTA of the thoracic aorta with coronal and sagittal reformatted images a nd maximum intensity projection (MIP) images. CLINICAL INFORMATION: hypoxia COMPARISON: None. DLP: 275.[address] scans at [facility] use at least one of these dose optimization techniques: automated e xposure control; mA and/or kV adjustment per patient size (includes targeted exams where dose is matc hed to clinical indication); or iterative reconstruction. FINDINGS:Proximal main pulmonary arteries are normal. Normal segmental and subsegmental pulmonary art eries. No evidence of pulmonary embolus. Moderate to advanced chronic emphysematous changes. Trace pleural fluid with bibasilar atelectasis. A ortic calcification. No mediastinal or hilar lymphadenopathy. Gallbladder is contracted partially vis ualized. Small esophageal hiatal hernia with fluid in the distal esophagus. Air-fluid level in the st omach. Distended stomach. Adrenal glands are normal. Moderate thoracic kyphosis. CT/CT angio chest [id number] IMPRESSION: 1. Proximal main pulmonary arteries are normal. No evidence of pulmonary embol us. 2. Trace bilateral pleural fluid. Bibasilar atelectasis. 3. Small esophageal hiatal hernia. Air-fluid levels in distended stomach. Flui d in the distal esophagus. 4. No other acute findings.
== END 2023-05-25 15:39 | disposition skilled nursing facility (03) | DRG 470 ==
LOC: MEDSURG 05-23 09:20
PROVIDERS: Internal Medicine; Admitting Provider Specialist; PCP Clinical Nurse Specialist Adult Health; Visit Provider Specialist
PROC: 8E0Y0CZ Robotic Assisted Procedure of Lower Extremity, Open Approach (ICD-10-PCS; CPT 27447; principal; 2023-05-22 09:55)
DX: M17.12 Unilateral primary osteoarthritis, left knee (principal); E87.1 Hypo-osmolality and hyponatremia; M24.562 Contracture, left knee; M24.561 Contracture, right knee; M79.89 Other specified soft tissue disorders; E86.0 Dehydration; I95.81 Postprocedural hypotension; E83.42 Hypomagnesemia; I10 Essential (primary) hypertension; M06.89 Other specified rheumatoid arthritis, multiple sites; Z79.51 Long term (current) use of inhaled steroids; Z79.891 Long term (current) use of opiate analgesic; M85.862 Other specified disorders of bone density and structure, left lower leg; Z90.49 Acquired absence of other specified parts of digestive tract; K21.9 Gastro-esophageal reflux disease without esophagitis; R00.1 Bradycardia, unspecified; K44.9 Diaphragmatic hernia without obstruction or gangrene; M85.88 Other specified disorders of bone density and structure, other site
CPT/HCPCS: 20985; 27447; 36415; 51702; 51798; 71275; 73560; 80048; 85025; 85378; 93970; 96372; 97110; 97162; 97165; 97530; 97535; 97760; C1713; C1776; C9290; G0378; J0131; J0690; J1100; J1170; J1200; J1650; J2405; J2704; J2795; J3010; J3370; J3490; J7030; J7040; P9045; Q9967

== ENCOUNTER → 2023-06-04 12:54 | Outpatient (BNVA) | payer MEDICARE, SELFPAY | PROVIDERS: PCP Clinical Nurse Specialist Adult Health; Visit Provider Specialist | DX: Z96.652 Presence of left artificial knee joint (principal) | CPT/HCPCS: 73560; 73565; 99024 ==

== ENCOUNTER → 2023-06-12 11:29 | Outpatient (BNVA) | payer MEDICARE, SELFPAY | PROVIDERS: PCP Clinical Nurse Specialist Adult Health; Visit Provider Podiatrist Foot & Ankle Surgery | DX: S93.401A Sprain of unspecified ligament of right ankle, initial encounter; X50.1XXA Overexertion from prolonged static or awkward postures, initial encounter | CPT/HCPCS: 73610; 97760; 99213; L1902 ==

== ENCOUNTER 2023-06-12 15:40 | Outpatient (CLI) | payer MEDICARE, SELFPAY | END 2023-06-12 15:41 | disposition home or self-care (01) | LOC: SPT 15:40 | PROVIDERS: PCP Clinical Nurse Specialist Adult Health; Visit Provider Podiatrist Foot & Ankle Surgery | DX: Z46.89 Encounter for fitting and adjustment of other specified devices (principal); S93.401D Sprain of unspecified ligament of right ankle, subsequent encounter; X58.XXXD Exposure to other specified factors, subsequent encounter | CPT/HCPCS: 97760; 99213; L1902 ==

== ENCOUNTER → 2023-06-13 15:40 | Outpatient (BNVA) | payer MEDICARE, SELFPAY | PROVIDERS: PCP Clinical Nurse Specialist Adult Health; Visit Provider Clinical Nurse Specialist Adult Health | DX: E87.1 Hypo-osmolality and hyponatremia; E53.8 Deficiency of other specified B group vitamins; E11.9 Type 2 diabetes mellitus without complications; E87.5 Hyperkalemia | CPT/HCPCS: 80053; 82607; 82728; 82746; 83550; 83630; 83735; 83880 ==

== ENCOUNTER → 2023-06-25 14:59 | Outpatient (BNVA) | payer MEDICARE, SELFPAY | PROVIDERS: PCP Clinical Nurse Specialist Adult Health; Visit Provider Specialist | DX: Z96.652 Presence of left artificial knee joint (principal) | CPT/HCPCS: 73560; 73565; 99024 ==

== ENCOUNTER → 2023-06-26 12:35 | Outpatient (BNVA) | payer MEDICARE, SELFPAY | PROVIDERS: PCP Clinical Nurse Specialist Adult Health; Visit Provider Podiatrist Foot & Ankle Surgery | DX: S93.401A Sprain of unspecified ligament of right ankle, initial encounter; X58.XXXA Exposure to other specified factors, initial encounter; M76.821 Posterior tibial tendinitis, right leg; Z91.81 History of falling; R26.81 Unsteadiness on feet | CPT/HCPCS: 73610; 99214 ==

== ENCOUNTER → 2023-08-06 13:29 | Outpatient (BNVA) | payer MEDICARE, SELFPAY | PROVIDERS: PCP Clinical Nurse Specialist Adult Health; Visit Provider Specialist | DX: Z96.652 Presence of left artificial knee joint (principal); R26.81 Unsteadiness on feet | CPT/HCPCS: 73560; 73565; 99024 ==

== ENCOUNTER 2023-08-30 12:20 | Outpatient (RCR) | payer MEDICARE, SELFPAY | END 2023-09-27 23:59 | disposition home or self-care (01) | LOC: SPT 12:20 | PROVIDERS: PCP Clinical Nurse Specialist Adult Health; Visit Provider Specialist | DX: M25.562 Pain in left knee (principal); M25.662 Stiffness of left knee, not elsewhere classified; Z47.1 Aftercare following joint replacement surgery | CPT/HCPCS: 97110 ==

== ENCOUNTER → 2023-09-10 14:02 | Outpatient (BNVA) | payer MEDICARE, SELFPAY | PROVIDERS: PCP Clinical Nurse Specialist Adult Health; Visit Provider Specialist | DX: Z96.652 Presence of left artificial knee joint (principal); M17.11 Unilateral primary osteoarthritis, right knee | CPT/HCPCS: 20610; 73560; 73565; 99024; J7318 ==

== ENCOUNTER → 2023-09-14 08:32 | Outpatient (BNVA) | payer MEDICARE, SELFPAY | PROVIDERS: PCP Clinical Nurse Specialist Adult Health; Visit Provider Clinical Nurse Specialist Adult Health | DX: E87.1 Hypo-osmolality and hyponatremia (principal); E11.9 Type 2 diabetes mellitus without complications; D50.9 Iron deficiency anemia, unspecified; E55.9 Vitamin D deficiency, unspecified | CPT/HCPCS: 80048; 82306 ==

== ENCOUNTER 2023-09-28 06:00 | Outpatient (RCR) | payer MEDICARE, SELFPAY | END 2023-10-28 23:59 | disposition home or self-care (01) | LOC: SPT 06:00 | PROVIDERS: PCP Clinical Nurse Specialist Adult Health; Visit Provider Specialist | DX: Z47.1 Aftercare following joint replacement surgery (principal); Z96.652 Presence of left artificial knee joint | CPT/HCPCS: 97110 ==

== ENCOUNTER → 2023-10-16 13:25 | Outpatient (BNVA) | payer MEDICARE, SELFPAY | PROVIDERS: PCP Clinical Nurse Specialist Adult Health; Visit Provider Podiatrist Foot & Ankle Surgery | DX: E11.9 Type 2 diabetes mellitus without complications (principal); M76.821 Posterior tibial tendinitis, right leg; M76.822 Posterior tibial tendinitis, left leg | CPT/HCPCS: 99213 ==

== ENCOUNTER → 2023-10-17 09:42 | Outpatient (BNVA) | payer MEDICARE, SELFPAY | PROVIDERS: PCP Clinical Nurse Specialist Adult Health; Visit Provider Clinical Nurse Specialist Adult Health | DX: D50.8 Other iron deficiency anemias (principal); I10 Essential (primary) hypertension; E87.1 Hypo-osmolality and hyponatremia; K21.9 Gastro-esophageal reflux disease without esophagitis | CPT/HCPCS: 84295; 85025 ==

== ENCOUNTER 2023-10-29 06:00 | Outpatient (RCR) | payer MEDICARE, SELFPAY | END 2023-11-28 23:59 | disposition home or self-care (01) | LOC: SPT 06:00 | PROVIDERS: PCP Clinical Nurse Specialist Adult Health; Visit Provider Specialist | DX: Z47.1 Aftercare following joint replacement surgery (principal) | CPT/HCPCS: 97110 ==

== ENCOUNTER → 2023-11-23 08:36 | Outpatient (BNVA) | payer MEDICARE, SELFPAY | PROVIDERS: PCP Clinical Nurse Specialist Adult Health; Visit Provider Clinical Nurse Specialist Adult Health | DX: E87.1 Hypo-osmolality and hyponatremia (principal) | CPT/HCPCS: 80048 ==

== ENCOUNTER 2023-11-29 06:00 | Outpatient (RCR) | payer MEDICARE, SELFPAY | END 2023-12-27 23:59 | disposition home or self-care (01) | LOC: SPT 06:00 | PROVIDERS: PCP Clinical Nurse Specialist Adult Health; Visit Provider Specialist | DX: Z47.1 Aftercare following joint replacement surgery (principal); Z96.652 Presence of left artificial knee joint | CPT/HCPCS: 97110 ==

== ENCOUNTER → 2023-12-07 08:25 | Outpatient (BNVA) | payer MEDICARE, SELFPAY | PROVIDERS: PCP Clinical Nurse Specialist Adult Health; Visit Provider Clinical Nurse Specialist Adult Health | DX: E87.1 Hypo-osmolality and hyponatremia (principal); Z79.899 Other long term (current) drug therapy | CPT/HCPCS: 84295 ==

== ENCOUNTER → 2023-12-12 13:12 | Outpatient (BNVA) | payer MEDICARE, SELFPAY | PROVIDERS: PCP Clinical Nurse Specialist Adult Health; Visit Provider Specialist | DX: Z01.818 Encounter for other preprocedural examination (principal); M25.562 Pain in left knee; M17.0 Bilateral primary osteoarthritis of knee; Z96.652 Presence of left artificial knee joint | CPT/HCPCS: 73560; 73565; 99214 ==

== ENCOUNTER → 2023-12-14 11:23 | Outpatient (BNVA) | payer MEDICARE, SELFPAY | PROVIDERS: PCP Clinical Nurse Specialist Adult Health; Visit Provider Clinical Nurse Specialist Adult Health | DX: E55.9 Vitamin D deficiency, unspecified (principal); E11.9 Type 2 diabetes mellitus without complications; E83.42 Hypomagnesemia; E53.8 Deficiency of other specified B group vitamins | CPT/HCPCS: 80053; 83540 ==

== ENCOUNTER → 2024-01-02 10:06 | Outpatient (BNVA) | payer MEDICARE, SELFPAY | PROVIDERS: PCP Clinical Nurse Specialist Adult Health; Visit Provider Family Medicine | DX: Z01.818 Encounter for other preprocedural examination; Z79.899 Other long term (current) drug therapy | CPT/HCPCS: 80053; 81003; 85025; 87077; 87086; 87184 ==

== ENCOUNTER 2024-01-04 08:06 | Outpatient (CLI) | payer MEDICARE, SELFPAY ==
--- NOTE | 2024-01-04 08:30 | CT_ITS ---
WS: [id number] CT RIGHT KNEE, NONCONTRAST TECHNIQUE: Noncontrast CT of the RIGHT knee to include the RIGHT hip and ankle. CLINICAL INFORMATION: M17.11 - Unilateral primary osteoarthritis, right knee COMPARISON: None. DLP: [address] scans at [facility] use at least one of these dose optimization techniques: automated e xposure control; mA and/or kV adjustment per patient size (includes targeted exams where dose is matc hed to clinical indication); or iterative reconstruction. FINDINGS: Prior postoperative changes LEFT TKA. Advanced tricompartmental arthritis RIGHT knee with hypertrophi c changes along the joint line. Osteopenia. Hypertrophic patella. Chronic RIGHT inferior pubic rami f racture with callus formation. Postoperative changes in the pelvis similar in appearance to 01/06/2023 . Small suprapatellar effusion. Vascular calcification. Prior hysterectomy. IMPRESSION: 1. Images obtained for preoperative purposes.
== END 2024-01-04 08:07 | disposition home or self-care (01) ==
LOC: RAD 08:06
PROVIDERS: PCP Clinical Nurse Specialist Adult Health; Visit Provider Specialist
DX: M17.11 Unilateral primary osteoarthritis, right knee (principal); M85.861 Other specified disorders of bone density and structure, right lower leg; Z96.652 Presence of left artificial knee joint
CPT/HCPCS: 73700; 80053; 83540

== ENCOUNTER → 2024-01-08 10:47 | Outpatient (BNVA) | payer MEDICARE, SELFPAY | PROVIDERS: PCP Clinical Nurse Specialist Adult Health; Visit Provider Clinical Nurse Specialist Adult Health | DX: Z01.818 Encounter for other preprocedural examination (principal) | CPT/HCPCS: 81003 ==

== ENCOUNTER 2024-01-10 16:58 | Observation (INO) | payer MEDICARE, SELFPAY ==
[2024-01-10] VITALS (12 sets, daily range): BP systolic 142–177; BP diastolic 64–97; PULSE 60–80; RESP 15–19; TEMP 36.1–37; O2SAT 95–98; BMI 25.7
--- NOTE | 2024-01-10 11:41 | ANES.PREANE2 ---
Pre-Anesthetic Assessment Height/Weight: Height 1.63 m Weight 68.039 kg Temp Pulse Resp BP Pulse Ox O2 Del Method 97.3 F L 76 17 154/79 96 Room Air 01/10/24 11:23 01/10/24 11:23 01/10/24 11:23 01/10/24 11:23 01/10/24 11:23 01/10/24 11:23 Operation Date: 01/10/24 13:35 Proposed Procedures p Hermilo Robot Total Knee Arthroplasty(Right) - Leti Rodrigues MD Familial anesthetic complications: None Was Beta Florencia taken within 24 hours: N/A Was Clonidine taken within 24 hours: N/A Social No alcohol and No tobacco Exam alert, oriented x 3, clear to auscultation bilaterally and regular rate & rhythm CV/HEM Hypertension last echo 12/202223. Grade 1/4 diastolic dysfunction. EF 64% 12/2022. mild MR. mild tricuspid regurg. GI Gastroesophageal Reflux Disease Anesthetic Plan ASA status: 2 Anesthesia: Regional (specify below) Other: adductor + spinal Risk of > 500 ml blood loss (7ml/kg in children): No Medications/Allergies Home Medications Medication Instructions Recorded Confirmed Last Taken Type ascorbic acid 1,000 1,000 mg PO DAILY 07/19/20 01/09/24 01/09/24 History tv-gndmyoxdoghp-qmulzfct powder effervescent pack (Emergen-C Immune Plus) folic acid 1 mg tablet 400 mg PO DAILY 07/19/20 01/09/24 01/09/24 History zinc acetate 25 mg (zinc) capsule 50 mg PO DAILY 07/19/20 01/09/24 01/09/24 History Custom Accomadative orthotic #1 ea 09/13/20 12/14/23 Unknown Rx SMO ankle brace #1 ea 10/26/20 12/14/23 Unknown Rx cholecalciferol (vitamin D3) 125 125 mcg PO DAILY 09/28/22 01/09/24 01/09/24 History mcg (5,000 unit) capsule loratadine 10 mg tablet (Claritin) 10 mg PO DAILY 09/28/22 01/09/24 01/09/24 History albuterol sulfate 90 mcg/actuation 2 inh inhalation Q6H PRN shortness 03/29/23 01/09/24 01/09/24 Rx aerosol inhaler of breath or wheezing #8.5 grams magnesium oxide 500 mg PO DAILY 05/23/23 01/09/24 01/09/24 History omega-3 fatty acids 1,000 mg 1,000 mg PO DAILY 05/23/23 01/09/24 12/19/23 History capsule vit V00-dlidlwory factor-folic 2 tab PO DAILY 05/23/23 01/09/24 01/09/24 History acid cmb#2 500 mcg-20 mg-800 mcg tablet ASO #1 ea 06/12/23 12/14/23 Unknown Rx wheelchair #1 ea 06/13/23 12/14/23 Unknown Rx HEWITT balance braces #1 ea 06/26/23 12/14/23 Unknown Rx gabapentin 100 mg capsule See Rx Instructions .Route 07/16/23 01/09/24 01/09/24 Rx .COMPLEX #450 caps ferrous fumarate 325 mg (106 mg 65 mg PO BID 10/18/23 01/09/24 01/09/24 History iron) tablet (Christy) pantoprazole 40 mg tablet,delayed 40 mg PO DAILY 90 days #90 tabs 10/31/23 01/09/24 01/09/24 Rx release tramadol 50 mg tablet 25 mg (1/2 x 50 mg) PO BID PRN 11/26/23 01/09/24 01/08/24 20:00 Rx pain #30 tabs mupirocin 2 % topical ointment 1 applic topical BID #15 grams 12/14/23 01/09/24 Unknown Rx aspirin 81 mg tablet,delayed 81 mg PO TID 01/02/24 01/09/24 01/02/24 History release losartan 50 mg tablet 50 mg PO DAILY 90 days #90 tabs 01/02/24 01/09/24 01/09/24 Rx montelukast 10 mg tablet 10 mg PO DAILY #90 tabs 01/02/24 01/09/24 01/09/24 Rx naproxen 500 mg tablet (Naprosyn) 500 mg PO BID PRN Pain 01/02/24 01/09/24 12/19/23 History sodium chloride-potassium chloride 2 tab PO BID 90 days #360 tabs 01/02/24 01/09/24 01/09/24 Rx 287 mg-180 mg-15 mg tablet (Thermotabs) ciprofloxacin HCl 500 mg tablet 500 mg PO BID #10 tabs 01/03/24 01/09/24 01/07/24 Rx Allergies Allergy/AdvReac Type Severity Reaction Status Date / Time oxycodone [From Percocet] Allergy Unknown Unknown Verified 01/02/24 09:08 hydrocodone Allergy ADR/ALGY-Fl Verified 01/02/24 09:08 ushing Sulfa (Sulfonamide Allergy unknown Verified 01/02/24 09:08 Antibiotics) [facility] Anesthesia Medical History Hypomagnesemia Essential hypertension Hyponatremia chronic. previously on Samsca, but now on thermotabs Stage 3a chronic kidney disease (CKD) baseline creatinine is 1.1 Diastolic CHF last echo 12/202223. Grade 1/4 diastolic dysfunction. EF 64% 12/2022. mild MR. mild tricuspid regurg. Heart murmur Diabetes mellitus diet controlled Macular degeneration Iron deficiency anemia Vitamin D deficiency Vitamin B12 deficiency Gastroesophageal reflux Meniere's disease Hearing loss Seasonal allergies Kyphosis Primary osteoarthritis of knees, bilateral Rheumatoid arthritis Hyperkalemia intermittent Surgical History Status post total left knee replacement using cement Date of procedure: May 22, 2023 Diagnosis: Primary osteoarthritis left knee with flexion contracture and varus deformity Procedure done: Left total knee arthroplasty with Hermilo guidance Implants: [email or web address] total knee system with a size 3 triathlon cruciate retaining left femur, cemented, a triathlon universal tibial component size 3, cemented, a triathlon X3 tibial bearing CS insert size 3 X 11 mm and a cemented triathlon asymmetric patella size 35 x 10 mm. Biosteon Intraline 5.5mm Suture anchor with #2 Force Fiber History of hernia surgery H/O: hysterectomy H/O repair of rotator cuff History of carpal tunnel release History of partial surgical removal of colon Family History Father ALS (amyotrophic lateral sclerosis) CAD (coronary artery disease) Mother Stroke Social History Smoking and tobacco/nicotine status: never used tobacco/nicotine Alcohol intake: never Substance/Drug Use: never Marital status: / Data Anesthesia Cardiac Studies: Echocardiogram 01/07/23
[2024-01-10] MEDS: acetaminophen 1,000 MG/100 ML PIGGYBACK 400 MG IV ×2 (11:53→20:14)
[2024-01-10] MEDS: gabapentin 300 mg Capsule PO (11:53)
[2024-01-10] MEDS: CELEcoxib 200 mg Capsule 400 MG PO (11:54)
[2024-01-10] MEDS: sodium chloride 0.9% 1,000 ML 30 ML IV (12:01)
--- NOTE | 2024-01-10 12:44 | ANES.PROC ---
Anesthesia Procedures Procedure/Date: 01/10/24 Nerve Block ^: Nerve Block 1: Main Anesthesia: spinal anesthesia block Time Out Performed: Yes Consent: requested by attending/covering physician, from patient, from other, risks and benefits reviewed and patient agrees to proceed Anesthesia monitors applied: pulse oximetry, EKG, BP cuff and oxygen Nerve block position: supine Anesthetic Used: ropivicaine 0.5% (30 ml) and with decadron (4 mg) Ultrasound used to: recognize landmarks and visualize and ID femerol nerve Nerve Stimulator Used?: No Interscalene/Femoral BLK: 4 stimuplex 21 g needle used for position and inplane approach, visualize local anesthetic spread and no vascular puncture identified Patient Tolerated Procedure: well and no complications Complications: none
--- NOTE | 2024-01-10 12:44 | PC.NURSE ---
Time out prior to block to R knee. Patient to bedside monitor, VSS. Pt tolerated well. Daughter at bedside. CLWR.
--- NOTE | 2024-01-10 12:58 | W.PM.OPSUD ---
Surgery/Procedure H&P Update DATE OF PROCEDURE: January 10, 2024 DATE H&P PERFORMED: 01/02/24 H&P UPDATE INFORMATION: I have reviewed H&P completed within last 30 days, I have examined patient prior to procedure, No changes to prior documentation and H&P is in [facility] EMR on date indicated PLANNED PROCEDURE: Operation Date: 01/10/24 13:35 Proposed Procedures p Hermilo Robot Total Knee Arthroplasty(Right) - Leti Rodrigues MD Related Problem List Diagnoses (1) Primary osteoarthritis of right knee:
[2024-01-10] MEDS: ceFAZolin 2,000 MG in sodium chloride 0.9% (plus) 50 ML 100 MG IV ×2 (13:14→21:33)
[2024-01-10] MEDS: tranexamic acid 1,000 mg/10mL SDV 1000 MG IV (13:40)
[2024-01-10] MEDS: ceFAZolin 1,000 mg SDV 2000 MG IRRIGATION (14:26)
[2024-01-10] MEDS: BUPivacaine 0.5% INJ 30 mL 20 ML INJECTION (14:27)
[2024-01-10] MEDS: BUPivacaine liposome 13.3 mg/mL SDV 10 mL 266 MG INFILTRATI (14:28)
[2024-01-10] MEDS: vancomycin 1,000 MG SDV 1000 MG XX (14:29)
[2024-01-10] MEDS: sodium chloride 0.9% 50 ML 0.100000000000000006 ML (14:30)
--- NOTE | 2024-01-10 16:12 | XRR_ITS ---
PROCEDURE INFORMATION: Exam: XR Right Knee Exam date and time: 01/10/2024 4:04 PM Age: 88 years old Clinical indication: Device placement; Other: Right tka; Additional info: Pacu images. S/P right tka. TECHNIQUE: Imaging protocol: Radiologic exam of the right knee. Views: 3 views. COMPARISON: CT knee RT SOFÍA [id number] 01/04/2024 8:18 AM FINDINGS: Bones/joints: Sequela of recently placed right total knee arthroplasty in expected alignment. Soft tissues: Soft tissue swelling and gas noted in the anterior knee consistent with recent surgical procedure. XR/XR knee RT 3V* [id number] IMPRESSION: Sequela of recently placed right total knee arthroplasty in expected alignment.
--- NOTE | 2024-01-10 17:20 | ANE.PACU2 ---
Inpatient post-anesthesia follow up: Airway intact: Yes Vital signs: Temperature 97.2 F Pulse Rate 62 Respiratory Rate 18 Blood Pressure 170/84 Pulse Oximetry 95 Oxygen Delivery Me thod Room Air Oxygen Flow Rate Fraction of Inspir ed Oxygen Hydration adequate: Yes Nausea and vomiting: No Pain level: 1 Mental status: Baseline
--- NOTE | 2024-01-10 17:51 | P.OP_ITS ---
Operative Report Date of procedure: January 10, 2024 Pre-op diagnosis: Primary osteoarthritis right knee with flexion contracture and valgus deformity Post-op diagnosis: Primary osteoarthritis right knee with flexion contracture and valgus deformity Post-op findings: Significant flexion contracture as well as valgus deformity to the right knee Procedure done: Right total knee arthroplasty with Hermilo guidance Implants: The Holder total knee system with a size 2 triathlon cruciate retaining left femur, cemented, a triathlon universal tibial component size?3, cemented, a triathlon X3 tibial bearing CS insert size 3 X 11 mm and a cemented triathlon asymmetric patella size 32 x 10 mm. Specimens removed/disposition: Bone, disposed of Pathology: None Surgeon: Leti Rodrigues MD Pipe And Tank Fabricator: Elva James, nurse practitioner, who services were required for retraction, positioning, completion of the surgical procedure, and closure. Anesthesia: Spinal (With MAC, ASA 2) Estimated blood loss (mL): 300 Tourniquet time (min): 0 (Not utilized) IV fluids (mL): 1,050 Urine output (mL): 300 Complications: None Findings: Severe degenerative osteoarthritis right knee with valgus deformity and flexion contracture as well as severe osteopenia Condition: stable Disposition: PACU (Then to floor for postoperative rehabilitation and pain management) Brief History: This 88-year-old woman presents today for right total knee arthroplasty. She previously underwent left total knee arthroplasty from which she has recovered nicely. Her procedure was in April 2023. She has been much more mobile and had decreased issues with her activities of daily living, but the right knee began to interfere with normal activities limiting her ability to fully recover. After discussion with the patient and her daughter in the office, the patient wished to proceed with right total knee arthroplasty. Risks and complications were discussed with her, and consents were signed. Questions were answered at that time. Procedure: The patient was brought to the operating theater, and after undergoing spinal anesthesia with MAC and supplemental adductor block, ASA 2, the right lower extremity was prepped with Dura-Prep and draped in usual fashion following placement of a tourniquet high on the leg. The leg was then draped free.? Tourniquet was not elevated during the case.? As surgical procedure proceeded, it was evident that the patient had significant osteopenia which precluded use of press-fit components. The decision was made to proceed to cemented components. Prior to commencement of the surgical procedure, a surgical pause was performed, and at the time of the surgical pause, we confirmed the site and side of surgery. Additionally, we confirmed the appropriate and timely administration of preoperative antibiotics, Ancef 2 g and Transexemic acid 1 g. The availability of equipment was confirmed, and the patient's identity was verbalized as well.? An additional transexemic acid 1 g will be given on the floor as well. Following the surgical pause, an incision was made centering over the patella continuing proximally and distally as necessary to allow access to the knee joint. Dissection continued through skin and soft tissues using a scalpel. Hemostasis was obtained using electrocautery. The skin incision was followed by a median parapatellar arthrotomy. The leg was extended and the patella was able to be displaced laterally without difficulty.? Medial release was initially accomplished to allow placement for the Hermilo array.? Appropriate arrays and markers were placed in appropriate position for use of the Hermilo.? Preoperative planning had been accomplished and was discussed in detail with the [facility] agency service representative.? Intraoperative mapping of the femur and tibia was accomplished after the arrays were placed.? Internal markers were also placed.? Once we had accomplished the Hermilo mapping, we began the appropriate resections for placement of the prosthesis.? The plan was for a cruciate retaining right total knee arthroplasty.? Medial releases were accomplished prior to the surgical procedure to allow balancing of the knee. Once appropriate mapping had been accomplished retraction was established using manual retraction by surgical technicians and also the Hermilo leg positioner and retractors.? The knee was evaluated.? There was significant osteoarthritic change with significant osteophyte formation a significant varus and flexion deformity.? The tibia was cut first with the Hermilo.? Subsequently, appropriate bone resection of the femur was accomplished using the Hermilo.? The femur was sized to a size 2.? Osteophytes were removed prior to this portion of the procedure.? We had performed a medial release at the beginning of the procedure to allow for placement of the array and to allow for better planning with flexion and extension adjustments per Hermilo programming.? Following this resection, it was felt that appropriate size for the tibia was a size 3.? Tray was noted to fit nicely with good coverage.? Rim fit was accomplished with the size 3. As the knee was evaluated, it was noted to be quite osteopenic. Secondary to the concern of subsidence of prosthetic components, I elected to proceed with cemented components, and appropriate prosthetic devices were brought into the room. A trial reduction was accomplished after osteophytes have been removed as well as the medial and lateral menisci.? We had removed the anterior cruciate ligament at the beginning of the case and preserved the posterior cruciate ligament.? Trial reduction was accomplished with a size 2 femoral cruciate retaining component and a size 3 tibial tray with a size 3 x 11 CS tibial bearing insert.? Alignment was felt to be appropriate.? Trial components were removed after the femur had been drilled.? Prior to removal of the tibial tray which had been pinned in position with appropriate rotation as determined by the Hermilo plan, we drilled and broached the tibia fourth the cemented tibia.? All trial components were removed, and the wound was irrigated.? Plans were made for insertion of the prosthetic components.? Prior to this, the patella was manually prepared.? After resection of the articular surface with the jigging system, it was measured and measured a 32 mm patella.? We resected approximately 8 mm of patella.? Patellar height was restored with the patellar component. Once again, the wound was irrigated. Having prepared both the tibia and femur, preparation was made for cementing. The wound was copiously irrigated and the surfaces were dried. Exparel was injected as appropriate as well. Cementing was then accomplished first the tibia followed by the femur followed by the patella. In each case, excess cement was cleared from around the components as they were impacted into position and after the knee was fully extended. After the cement had fully cured, surfaces around the components were evaluated and any excess cement was cleared. Exparel was injected about the components deep and superficially.? The knee was then copiously irrigated with betadine and saline and suctioned dry.? Further irrigation was accomplished with saline following the Betadine.? Attention was then directed to closure. Closure was accomplished with 0 Vicryl in the fascial tissues.? The suture line of 0 Vicryl was supplemented with strata fix, #1, with a running stitch from proximal to distal and a second running stitch from distal to proximal.? This was followed by Surgiflo and vancomycin powder.? Following this, a 2-0 Monocryl was used in the subcutaneous tissues, and the skin was closed with 3-0 Strata fix.? Care was taken to assure an excellent subcutaneous as well as skin closure.? A sterile dressing was then placed consisting of Dermabond Prineo, OpSite, ABD, sterile soft roll, and an Carlos wrap including over the foot. The patient was returned the Recovery Room in a satisfactory condition. X-rays were obtained and reviewed there.? The patient will be discharged to the floor for postoperative rehabilitation and pain management. Related Problem List Diagnoses (1) Primary osteoarthritis of right knee: (2) Valgus deformity, not elsewhere classified, right knee:
[2024-01-10] MEDS: chlorhexidine gluconate 0.12% Btl 473 mL 30 ML MUCOUS MEM ×2 (18:01→22:03)
[2024-01-10] MEDS: gabapentin 100 mg Capsule PO (18:02)
[2024-01-10] MEDS: mupirocin oint 22 gm 1 APPLIC NASAL (18:02)
[2024-01-10] MEDS: sennosides-docusate Tablet 2 TAB PO (18:02)
[2024-01-10] MEDS: tranexamic acid 1,000 MG/100 ML PREMIX 600 MG IV (22:03)
[2024-01-10] MEDS: CELEcoxib 200 mg Capsule PO (22:04)
[2024-01-10] MEDS: TRAMadol 50 mg Tablet PO (22:17)
[2024-01-11 04:20] VITALS: BP 110/58; PULSE 73; RESP 16; O2SAT 93
[2024-01-11] MEDS: acetaminophen 1,000 MG/100 ML PIGGYBACK 400 MG IV ×2 (04:49→12:42)
[2024-01-11] MEDS: TRAMadol 50 mg Tablet PO (04:50)
[2024-01-11] MEDS: ceFAZolin 2,000 MG in sodium chloride 0.9% (plus) 50 ML 100 MG IV ×2 (04:58→13:29)
[2024-01-11 04:59] LABS: Basophils % 0.3 %; Eosinophils % 0.1 %; Hematocrit 28.7 % (36-47); Lymphocytes # 0.7 10^3/uL (0.8-4.8); Lymphocytes % 4.7 %; Mean Corpuscular HGB Conc 32.4 g/dL (30-55); Mean Corpuscular Hemoglobin 30.3 pg (27-33); Mean Corpuscular Volume 93.5 fl (85-98); Mean Platelet Volume 8.8 fL (7.4-10.4); Monocytes # 1.5 10^3/uL (0.2-0.9); Monocytes % 10.9 %; Neutrophils # 11.47 10^3/uL (1.8-7.7); Neutrophils % 83.3 %; Nucleated Red Blood Cells % 0 %; Platelet Count 267 10^3/cmm (157-399); Red Blood Count 3.07 10^6/uL (3.85-5.65); Red Cell Distribution Width 13.9 % (12.1-15.1); White Blood Count 13.76 10^3/uL (3.29-11.43)
[2024-01-11 05:28] LABS: Anion Gap 16.6 (5-19); Blood Urea Nitrogen 25 mg/dL (8-23); Carbon Dioxide 21 mmol/L (22-29); Chloride 98 mmol/L (98-107); Creatinine Clr Calc Pharmacy 33.0627; Glucose 129 mg/dL (65-115); Osmolality Calculated 278 mOsm/kg (285-295); Potassium 4.6 mmol/L (3.5-5.1); Sodium 131 mmol/L (136-145)
[2024-01-11 08:00] VITALS: BP 109/63; PULSE 67; RESP 16; TEMP 36.7; O2SAT 95
[2024-01-11 09:02] VITALS: PULSE 70; RESP 18; O2SAT 94
--- NOTE | 2024-01-11 09:44 | PC.CHAP ---
Pastoral Care Encounter/Spiritual Assessment Type of Contact [] Declined computer animator visit [] Patient/Family/Request visit [] Outpatient visit [] Follow-up visit [] Physician referral [] Code/Alert [x] Routine visit [] Staff referral [] Actively dying [] Patient sleeping [] Family support [] [] Out of room [] Palliative care [] [] Receiving care in room [] Pre-surgical visit [] Trauma [] Long length of stay [] ICU visit [] Other: Relational/Emotional Strength [x] Patient feels connected with others/family/visitors/staff [] Distress [] Loneliness/isolation [] Abandonment Spirituality of Patient [x] Person of Desire [x] Attends Episcopal of their Desire [x] Believes in Prayer [x] Reads Bible or Sabianism materials [] There are Spiritual issues to be addressed Bakery Worker Interventions [x] Prayer [x] Active listening [] Non-anxious presence [x] Spiritual/emotional support [] Crisis/trauma care [] Spiritual counseling [] Bereavement support [] Provided bereavement packet [] Provided Bible/devotional materials [] Provided toy/stuffed animal, coloring book to patient or family member [] Provided Communion [] Anointing/[place] [] Salvation [x] Completed spiritual assessment [] Other: Impact on Illness or Injury [] Angry [] Fearful [] Anxious [] Often cries [] Exhaustion [] Unable to work [] Unable to attend tenriism [] Unable to walk/stand [] Unable to read [] Unable to drive [] Unable to eat/drink [] Unable to sleep [] Unable to be with family [] Patient intubated [] Other: Summary Time spent with patient 10 min
--- NOTE | 2024-01-11 09:47 | PC.PHAR ---
DAUGHTER STATES PT TAKES ALL HER VITAMINS IN THE MORNING.
[2024-01-11] MEDS: gabapentin 100 mg Capsule 200 MG PO ×2 (10:23→12:43)
[2024-01-11] MEDS: sennosides-docusate Tablet 2 TAB PO (10:23)
[2024-01-11] MEDS: aspirin 325 mg EC Tablet PO (10:23)
[2024-01-11 10:24] VITALS: BP 109/63
[2024-01-11] MEDS: montelukast sodium 10 mg Tablet PO (10:24)
[2024-01-11] MEDS: losartan 50 mg Tablet PO (10:24)
[2024-01-11] MEDS: loratadine 10 mg Tablet PO (10:24)
[2024-01-11] MEDS: pantoprazole DR 40 mg Tablet PO (10:24)
[2024-01-11] MEDS: chlorhexidine gluconate 0.12% Btl 473 mL 30 ML MUCOUS MEM (10:25)
[2024-01-11] MEDS: mupirocin oint 22 gm 1 APPLIC NASAL (10:25)
[2024-01-11] MEDS: CELEcoxib 200 mg Capsule PO (10:32)
[2024-01-11 11:55] VITALS: BP 136/80; PULSE 84; RESP 15; TEMP 36.6; O2SAT 94
[2024-01-11] MEDS: ondansetron 2 mg/ML SDV 2 mL 4 MG IVP (14:04)
--- NOTE | 2024-01-11 15:18 | P.DS_ITS ---
Discharge Providers Date of Admission: 01/10/24 16:58 Date of Discharge: January 11, 2024 Attending Provider at Admission: Leti Rodrigues MD Attending Provider at Discharge: Leti Rodrigues MD Primary Care Provider: Bryan Calixto Diagnoses at Discharge Discharge Diagnosis (1) Status post total right knee replacement using cement: Status: Acute Permanent problem details: Date of procedure: January 10, 2024 Diagnosis: Primary osteoarthritis right knee with flexion contracture and valgus deformity Procedure done: Right total knee arthroplasty with Hermilo guidance Implants: The O[employer]ice[employer] total knee system with a size 2 triathlon cruciate retaining left femur, cemented, a triathlon universal tibial component size 3, cemented, a triathlon X3 tibial bearing CS insert size 3 X 11 mm and a cemented triathlon asymmetric patella size 32 x 10 mm (2) Primary osteoarthritis of right knee: Status: Inactive (3) Valgus deformity, not elsewhere classified, right knee: Status: Acute Reason for Visit Reason for Visit: M17.11 Brief History: This 88-year-old woman presents today for right total knee arthroplasty. She previously underwent left total knee arthroplasty from which she has recovered nicely. Her procedure was in April 2023. She has been much more mobile and had decreased issues with her activities of daily living, but the right knee began to interfere with normal activities limiting her ability to fully recover. After discussion with the patient and her daughter in the office, the patient wished to proceed with right total knee arthroplasty. Risks and complications were discussed with her, and consents were signed. Questions were answered at that time. Hospital Course Hospital Course Patient was admitted under observation status following cemented right total knee arthroplasty. She had previously undergone left total knee arthroplasty, and the patient's family felt comfortable taking her home for rehabilitation following this total knee. On the first postoperative day, the patient had some nausea, but this resolved. She was able to work with physical therapy and was felt safe to be discharged home. Dressings were removed down to the OpSite, and there was minimal to no drainage. There was minimal swelling and no evidence of DVT. Physical therapy felt she was safe for discharge to home, therefore, she was discharged home with plans to follow-up in the office as previously scheduled. Physical Exam Const: COMMON NORMALS: no acute distress, average body habitus, patient oriented x3 and alert GENERAL APPEARANCE: cooperative and comfortable ORIENTATION/CONSCIOUSNESS: Yes awake HENMT: COMMON NORMALS: normocephalic and atraumatic HEAD & SCALP: normocephalic and atraumatic Eye: GENERAL EYE: appearance normal, both eyes and all related structures Chest: COMMONS NORMALS: normal inspection of the chest Resp: COMMON NORMALS: normal respiratory effort EFFORT & INSPECTION: Yes able to speak in complete sentences and Yes symmetric chest movement Extremity: RIGHT LOWER EXTREMITY: Yes knee joint (Dressing was dry and intact. Large outer dressing removed) Right knee: Yes inspection (Minimal ecchymosis), Yes ROM (Able to straight leg raise with slight help) and Yes neurovascular exam (No evidence of DVT) Neuro: COMMON NORMALS: patient oriented x3 SENSORIUM/ORIENTATION: Yes alert Psych: COMMON NORMALS: mental status grossly normal APPEARANCE: Yes grossly normal ATTITUDE: Yes calm and Yes engaged ATTENTION/CONCENTRATION: Yes attention grossly intact Skin: COMMON NORMALS: no rashes or lesions noted GENERAL SKIN EXAM: no rashes or lesions noted Urinary Catheter Management: Jeffers: Cath Placed During This Visit: yes, but has since been removed by the nurse Reason for Continuing Indwelling Catheter: Decision to DC Catheter Urinary Catheter Date of Insertion: 01/10/24 Urinary Catheter Time of Insertion: 13:45 Date Urinary Catheter Removed: 01/11/24 Time Urinary Catheter Discontinued: 06:45 Discharge Data Studies Completed and Pending Completed Studies During Hospitalization Category Date Time Status XR knee RT 3V* [id number] Stat Exams 01/10/24 16:12 Completed Pending at discharge Category Date Time Status Complete Blood Count w/Auto AM LABS Lab 01/12/24 04:00 Ordered Complete Blood Count w/Auto AM LABS Lab 01/13/24 04:00 Ordered Radiology Impressions Knee X-Ray 01/10/24 16:12 IMPRESSION: Sequela of recently placed right total knee arthroplasty in expected alignment. Laboratory Results WBC 13.76 10^3/uL (3.29-11.43) H 01/11/24 04:37 RBC 3.07 10^6/uL (3.85-5.65) L 01/11/24 04:37 Hgb 9.30 g/dL (11.27-16.99) L 01/11/24 04:37 Hct 28.7 % (36-47) L 01/11/24 04:37 MCV 93.5 fl (85-98) 01/11/24 04:37 MCH 30.3 pg (27-33) 01/11/24 04:37 MCHC 32.4 g/dL (30-55) 01/11/24 04:37 RDW 13.9 % (12.1-15.1) 01/11/24 04:37 Plt Count 267 10^3/cmm (157-399) 01/11/24 04:37 MPV 8.8 fL (7.4-10.4) 01/11/24 04:37 Neut % (Auto) 83.3 % 01/11/24 04:37 Lymph % (Auto) 4.7 % 01/11/24 04:37 [place] % (Auto) 10.9 % 01/11/24 04:37 Eos % (Auto) 0.1 % 01/11/24 04:37 Baso % (Auto) 0.3 % 01/11/24 04:37 Neut # (Auto) 11.47 10^3/uL (1.8-7.7) H 01/11/24 04:37 Lymph # (Auto) 0.7 10^3/uL (0.8-4.8) L 01/11/24 04:37 [place] # (Auto) 1.5 10^3/uL (0.2-0.9) H 01/11/24 04:37 Eos # (Auto) 0.0 10^3/uL (0.0-0.8) 01/11/24 04:37 Baso # (Auto) 0.0 10^3/uL (0.0-0.1) 01/11/24 04:37 Nucleated RBC % (auto) 0 % 01/11/24 04:37 Nucleated RBCs # 0.0 /100WBC 01/11/24 04:37 Sodium 131 mmol/L (136-145) L 01/11/24 04:37 Potassium 4.6 mmol/L (3.5-5.1) 01/11/24 04:37 Chloride 98 mmol/L (98-107) 01/11/24 04:37 Carbon Dioxide 21 mmol/L (22-29) L 01/11/24 04:37 Anion Gap 16.6 (5-19) 01/11/24 04:37 BUN 25 mg/dL (8-23) H 01/11/24 04:37 Creatinine 1.2 mg/dL (0.5-0.9) H 01/11/24 04:37 GFR Calculation Not Reportable 01/11/24 04:37 Glucose 129 mg/dL (65-115) H 01/11/24 04:37 Calculated Osmolality 278 mOsm/kg (285-295) L 01/11/24 04:37 Calcium 8.0 mg/dL (8.5-10.5) L 01/11/24 04:37 Vitals Last Vital Signs Temp 97.8 F 01/11/24 11:55 Pulse 84 01/11/24 11:55 Resp 154 H 01/11/24 11:55 BP 136/80 01/11/24 11:55 Pulse Ox 94 01/11/24 11:55 O2 Del Method Room Air 01/11/24 11:55 Discharge Plan Discharge Patient Disposition: Home Health Service Condition: Stable Prescriptions: New acetaminophen 500 mg Tablet 1,000 mg PO Q8H 15 Days Qty: 0 0RF aspirin 325 mg Tablet,Delayed Release (Dr/Ec) 325 mg PO DAILY 30 Days Qty: 0 0RF celecoxib 200 mg Capsule 200 mg PO 1XD 30 Days Qty: 30 0RF tramadol 50 mg Tablet 50 mg PO Q6H PRN (Reason: Moderate Pain) 7 Days Qty: 30 0RF ondansetron HCl 4 mg tablet 4 mg PO Q8H PRN (Reason: nausea and vomiting) 5 Days Qty: 14 0RF Continued zinc acetate 25 mg (zinc) capsule 50 mg PO DAILY Rx Instructions: swallow whole; do not chew/break/dissolve/open Emergen-C Immune Plus 1,000 mg powder effervescent in packet 1,000 mg PO DAILY (DME) Custom Accomadative orthotic See Rx Instructions .ROUTE .MEDSUPPLY Qty: 1 0RF Rx Instructions: with rear foot post on left albuterol sulfate 90 mcg/actuation HFA aerosol inhaler 2 inh inhalation Q6H PRN (Reason: shortness of breath or wheezing) Qty: 8.5 4RF (DME) wheelchair See Rx Instructions .Route .MEDSUPPLY Qty: 1 0RF Rx Instructions: As directed (DME) ASO See Rx Instructions .Route .MEDSUPPLY Qty: 1 0RF Rx Instructions: As directed (DME) [employer] balance braces See Rx Instructions .Route .MEDSUPPLY Qty: 1 0RF Rx Instructions: As directed custom made by the wilma ocampo cholecalciferol (vitamin D3) 125 mcg (5,000 unit) capsule 125 mcg PO DAILY loratadine [Claritin] 10 mg tablet 10 mg PO DAILY mupirocin 2 % ointment 1 applic topical BID Qty: 15 1RF (DME) SMO ankle brace See Rx Instructions .Route .MEDSUPPLY Qty: 1 0RF Rx Instructions: As directed gabapentin 100 mg capsule See Rx Instructions .ROUTE .COMPLEX Qty: 450 3RF Rx Instructions: 2capsules in the AM, 2 capsule at noon and 1 capsule in the evening pantoprazole 40 mg tablet,delayed release (DR/EC) 40 mg PO DAILY 90 Days Qty: 90 3RF tramadol 50 mg tablet 25 mg PO BID PRN (Reason: pain) Qty: 30 2RF losartan 50 mg tablet 50 mg PO DAILY 90 Days Qty: 90 3RF montelukast 10 mg tablet 10 mg PO DAILY Qty: 90 3RF omega-3 fatty acids 1,000 mg Capsule 1,000 mg PO DAILY magnesium oxide 500 mg Tablet 500 mg PO DAILY vit [id number] fact-FA cmb #2 500-20-800 mcg-mg-mcg Tablet 2 tab PO DAILY folic acid 400 mcg Tablet 0.4 mg PO DAILY Thermotabs 287-180-15 mg Tablet See Rx Instructions .ROUTE .COMPLEX Rx Instructions: TAKE 2 TABLETS BY MOUTH IN THE MORNING, 2 TABLETS AT LUNCH AND 1 TABLET IN THE EVENING. jd-[id number]-calcium carb-K1 400 mcg-500 mg calcium-20 mcg Tablet 1 tab PO QAM ferrous sulfate 325 mg (65 mg iron) Tablet 325 mg PO BID Held aspirin 81 mg tablet,delayed release (DR/EC) 81 mg PO TID Hold Instructions: Resume on 02/05/24. Resume 81 mg aspirin after 30 days of 325 mg aspirin Discharge Orders: Discharge Order (Routine); Ordered 01/11/24 Ordered By: Leti Rodrigues Referrals: [facility]) [Outside] Leti Rodrigues MD [Physician] - 01/23/24 10:45 am Discharge Diet: Advance as tolerated and Usual diet Discharge Activity: Limit activity as instructed and Use walker/crutches as instructed Patient Instructions: Aspirin (By mouth), Tramadol (By mouth), Celecoxib (By mouth), Total Knee Replacement (GEN), Joint Replacement Stoplight, Opioid Safety Activity Restrictions/Additional Instructions: Ice and elevation to the knee. You may ambulate weightbearing as tolerated. Range of motion, strengthening, and gait training per home health physical therapist. You may shower, but keep clear plastic dressing in place. If it lifts up, you may remove it. Discharge Attestations Time Spent in Discharge Care*: greater than 30 min Specific Discharge Activities: educating patient, educating and/or supporting family/caregiver, documenting/other paperwork and evaluating patient/reviewing data Quality Metrics Clinical Quality Measures [ No reported AMI, CVA or VTE this stay] Coding Level of Care Code Acute Code for Chg Fwd Diagnoses Status post total right knee replacement using cement Z96.651 Primary osteoarthritis of right knee M17.11 Valgus deformity, not elsewhere classified, right knee M21.061
--- NOTE | 2024-01-11 17:30 | PC.NURSE ---
Addendum entered by Ambreen Fitch RN 01/11/24 17:36: Left knee not hip Original Note: Discussed new medications, continued medications, and changed medications as well as restrictions and activities. Went over stop light with patient for hip. Verbalized understanding from patient and daughter.
[2024-01-11 17:34] VITALS: BP 136/80; PULSE 84; RESP 15; TEMP 36.6; O2SAT 94
== END 2024-01-11 15:44 | disposition home health service (06) ==
LOC: MEDSURG 17:02
PROVIDERS: Nurse Practitioner; Admitting Provider Specialist; PCP Clinical Nurse Specialist Adult Health; Visit Provider Specialist
PROC: 8E0Y0CZ Robotic Assisted Procedure of Lower Extremity, Open Approach (ICD-10-PCS; CPT 27447; principal; 2024-01-10 13:35)
DX: M17.11 Unilateral primary osteoarthritis, right knee (principal); M24.561 Contracture, right knee; M21.061 Valgus deformity, not elsewhere classified, right knee; K21.9 Gastro-esophageal reflux disease without esophagitis; Z79.82 Long term (current) use of aspirin; E11.22 Type 2 diabetes mellitus with diabetic chronic kidney disease; I13.0 Hypertensive heart and chronic kidney disease with heart failure and stage 1 through stage 4 chronic kidney disease, or unspecified chronic kidney disease; N18.30 Chronic kidney disease, stage 3 unspecified; I50.30 Unspecified diastolic (congestive) heart failure; M06.9 Rheumatoid arthritis, unspecified
CPT/HCPCS: 20985; 27447; 36415; 51702; 73562; 80048; 85025; 97110; 97161; 97165; 97530; C1776; C9290; G0378; J0131; J0690; J1100; J2405; J2704; J2795; J3370; J3490; J7030

== ENCOUNTER → 2024-01-23 10:45 | Outpatient (BNVA) | payer MEDICARE, SELFPAY | PROVIDERS: PCP Clinical Nurse Specialist Adult Health; Visit Provider Specialist | DX: Z96.651 Presence of right artificial knee joint (principal); M21.061 Valgus deformity, not elsewhere classified, right knee | CPT/HCPCS: 73560; 73565; 99024 ==

== ENCOUNTER 2024-01-30 09:36 | Outpatient (RCR) | payer MEDICARE, SELFPAY | END 2024-02-26 23:59 | disposition home or self-care (01) | LOC: SPT 09:36 | PROVIDERS: PCP Clinical Nurse Specialist Adult Health; Visit Provider Specialist | DX: Z47.1 Aftercare following joint replacement surgery (principal); Z96.651 Presence of right artificial knee joint | CPT/HCPCS: 97110; 97161 ==

== ENCOUNTER 2024-02-27 06:00 | Outpatient (RCR) | payer MEDICARE, SELFPAY | END 2024-03-27 23:59 | disposition home or self-care (01) | LOC: SPT 06:00 | PROVIDERS: PCP Clinical Nurse Specialist Adult Health; Visit Provider Specialist | DX: Z47.1 Aftercare following joint replacement surgery (principal); Z96.651 Presence of right artificial knee joint | CPT/HCPCS: 97110 ==

== ENCOUNTER → 2024-04-15 11:47 | Outpatient (BNVA) | payer MEDICARE, SELFPAY | PROVIDERS: PCP Clinical Nurse Specialist Adult Health; Visit Provider Clinical Nurse Specialist Adult Health | DX: E83.42 Hypomagnesemia (principal); I10 Essential (primary) hypertension; E11.9 Type 2 diabetes mellitus without complications; E87.1 Hypo-osmolality and hyponatremia; E55.9 Vitamin D deficiency, unspecified; E87.5 Hyperkalemia; E53.8 Deficiency of other specified B group vitamins; R30.0 Dysuria; D50.8 Other iron deficiency anemias | CPT/HCPCS: 80053; 81000; 82306; 82607; 82728; 83036; 83540; 83735; 83880; 85025; 86140; 87086 ==

== ENCOUNTER 2024-04-20 15:38 | Inpatient (IN) | payer MEDICARE, SELFPAY ==
[2024-04-20] VITALS (21 sets, daily range): BP systolic 147–190; BP diastolic 58–110; PULSE 85–111; RESP 14–28; TEMP 36.6–36.8; O2SAT 92–97; BMI 26.4
--- NOTE | 2024-04-20 15:44 | XRR_ITS ---
PROCEDURE INFORMATION: Exam: XR Chest Exam date and time: 04/20/2024 3:53 PM Age: 88 years old Clinical indication: Patient HX: Cough; Nausea; Constipation TECHNIQUE: Imaging protocol: Radiologic exam of the chest. Views: 1 view. COMPARISON: CT angio chest [id number] 05/25/2023 9:51 AM FINDINGS: Lungs: Mild left basilar atelectasis and/or scarring. No consolidation. Pleural spaces: No pleural effusion or pneumothorax. Heart/Mediastinum: Heart size is within normal limits. Bones/joints: No acute osseous abnormalities are seen. XR/XR chest 1V portable [id number] IMPRESSION: No acute cardiopulmonary disease.
--- NOTE | 2024-04-20 15:46 | W.ED.NAVMDI ---
Documented by User: ALESHIA Baron 04/20/24 17:44 HPI - Nausea/Vomiting/Diarrhea General: Chief complaint: Nausea/Vomiting/Diarrhea Stated complaint: N/V Time Seen by Provider: 04/20/24 15:44 History of Present Illness: 88-year-old female comes in today with nausea and vomiting for over 1 week. Reviewing the record we noted that patient had seen a primary care provider last Sunday for similar complaints of 7 days of nausea and vomiting. At that time patient was thought to have an early pneumonia as noted by some crackles in her left base. Patient was placed on antibiotics and has 1 more dose of Levaquin 500 mg. Patient has had persistent nausea and vomiting since eye surgery on the . Prior to her eye surgery patient was treated in February for bronchitis with azithromycin followed by doxycycline. Daughter reports no fever but she has felt clammy and also that she has had small bowel movements of just pebble-like stool and that was just yesterday. Patient had not had a bowel movement for 4 days prior to that. Patient just complains of her knee pain and her ankle pain. Patient had a knee replacement in December of this year. Wound appears to have been completely healed. Patient's chronic illnesses include diabetes mellitus, chronic kidney disease, and CHF. Patient's daughter states that patient has had difficulty maintaining her sodium level and has been on a medication before to maintain her sodium until Medicare said that it was not necessary. The daughter states that since she had her bowel resection for injury to the bowel from her hernia repair she has had difficulty with controlling her sodium level. Associated nausea: Yes Associated symtoms: Reports nausea; Denies chest pain Review of Systems General: Reports: 10 or more systems reviewed and unremarkable except in HPI and below Card: Denies: chest pain Resp: Denies: dyspnea GI: Reports: nausea, vomiting and constipation : Denies: difficulty voiding PFSH ED PFSH: Medical History (Updated 04/20/24 @ 18:22 by Kandis Gates MD) Hypomagnesemia Essential hypertension Hyponatremia chronic. previously on Samsca, but now on thermotabs Stage 3a chronic kidney disease (CKD) baseline creatinine is 1.1 Diastolic CHF last echo 12/202223. Grade 1/4 diastolic dysfunction. EF 64% 12/2022. mild MR. mild tricuspid regurg. Heart murmur Diabetes mellitus diet controlled Macular degeneration Iron deficiency anemia Vitamin D deficiency Vitamin B12 deficiency Gastroesophageal reflux Meniere's disease Hearing loss Seasonal allergies Kyphosis Primary osteoarthritis of knees, bilateral Rheumatoid arthritis Hyperkalemia intermittent Surgical History Status post total left knee replacement using cement Date of procedure: May 22, 2023 Diagnosis: Primary osteoarthritis left knee with flexion contracture and varus deformity Procedure done: Left total knee arthroplasty with Hermilo guidance Implants: The Athletic Standard total knee system with a size 3 triathlon cruciate retaining left femur, cemented, a triathlon universal tibial component size 3, cemented, a triathlon X3 tibial bearing CS insert size 3 X 11 mm and a cemented triathlon asymmetric patella size 35 x 10 mm. Biosteon Intraline 5.5mm Suture anchor with #2 Force Fiber History of hernia surgery H/O: hysterectomy H/O repair of rotator cuff History of carpal tunnel release History of partial surgical removal of colon Family History Father ALS (amyotrophic lateral sclerosis) CAD (coronary artery disease) Mother Stroke Social History Smoking and tobacco/nicotine status: never used tobacco/nicotine Alcohol intake: never Substance/Drug Use: never Marital status: / Physical Exam Const: COMMON NORMALS: alert HENMT: COMMON NORMALS: normocephalic HEAD & SCALP: normocephalic THROAT: posterior oropharynx normal Neck/C-Spine: COMMON NORMALS: full ROM Resp: COMMON NORMALS: normal respiratory effort AUSCULTATION: diminished lung sounds (Bilateral bases) Cardio: COMMON NORMALS: regular rate and regular rhythm RATE: regular rate RHYTHM: regular rhythm GI: COMMON NORMALS: Soft to palpation and non-tender AUSCULTATION: Yes normoactive bowel sounds PALPATION: Yes Soft to palpation Back/Pelvis: COMMON NORMALS: thoracic and lumbar spine normal to inspection Extremity: COMMON NORMALS: no pedal edema Neuro: SENSORIUM/ORIENTATION: Yes alert Skin: COMMON NORMALS: turgor normal GENERAL SKIN EXAM: turgor normal Course Vital Signs: Vital signs: Vital Signs Temperature 98 F 04/20/24 20:00 Pulse Rate 96 04/20/24 20:00 Respiratory Rate 20 H 04/20/24 20:00 Blood Pressure 165/58 04/20/24 20:15 Pulse Oximetry 96 04/20/24 20:00 Oxygen Delivery Me thod Room Air 04/20/24 20:00 MDM - Nausea/Vomiting/Diarrhea Medical Decision Making Patient comes in today for concerns of persistent nausea and vomiting for approximately 2 weeks. Patient has had vomiting episodes since her eye surgery on the . Patient was seen last Sunday and was diagnosed with possible early pneumonia and given some Zofran to help with her nausea and vomiting. Daughter also reports that patient has been constipated which up until yesterday she had not had a good bowel movement and only some pebble-like stool yesterday. Patient appears nontoxic and in mild to no pain. Vital signs are normal except for some elevated blood pressure at 183. Differential diagnosis includes but not limited to constipation, bowel obstruction unlikely, UTI, pneumonia, dehydration, hyponatremia. CBC was unremarkable. CMP noted sodium 114. Chest x-ray showed no acute cardiopulmonary process and KUB was unremarkable. Reviewed exam with Dr. Gates she excepted patient for hypokalemia to ICU. Patient was started on a normal saline drip. Dr. Garcia, attending ER physician was consulted for admit orders and agreed to plan. Lab Data 04/20/24 16:20 04/20/24 19:17 Radiology Impressions Chest X-Ray 04/20/24 15:44 IMPRESSION: No acute cardiopulmonary disease. KUB X-Ray 04/20/24 15:54 IMPRESSION: No plain film evidence of acute intra-abdominal or pelvic process. Abdomen/Pelvis CT 04/20/24 17:26 IMPRESSION: 1. No acute intra-abdominal or pelvic process. 2. Other nonemergent findings above. Head CT 04/20/24 18:32 IMPRESSION: 1. No acute intracranial pathology. 2. Senescent changes. Laboratory Results WBC 10.10 10^3/uL (3.29-11.43) 04/20/24 16:20 RBC 4.06 10^6/uL (3.85-5.65) 04/20/24 16:20 Hgb 11.60 g/dL (11.27-16.99) 04/20/24 16:20 Hct 34.5 % (36-47) L 04/20/24 16:20 MCV 85.0 fl (85-98) 04/20/24 16:20 MCH 28.6 pg (27-33) 04/20/24 16:20 MCHC 33.6 g/dL (30-55) 04/20/24 16:20 RDW 13.5 % (12.1-15.1) 04/20/24 16:20 Plt Count 362 10^3/cmm (157-399) 04/20/24 16:20 MPV 8.6 fL (7.4-10.4) 04/20/24 16:20 Neut % (Auto) 74.3 % 04/20/24 16:20 Lymph % (Auto) 12.3 % 04/20/24 16:20 Mckean % (Auto) 10.6 % 04/20/24 16:20 Eos % (Auto) 1.4 % 04/20/24 16:20 Baso % (Auto) 0.9 % 04/20/24 16:20 Neut # (Auto) 7.51 10^3/uL (1.8-7.7) 04/20/24 16:20 Lymph # (Auto) 1.2 10^3/uL (0.8-4.8) 04/20/24 16:20 Mckean # (Auto) 1.1 10^3/uL (0.2-0.9) H 04/20/24 16:20 Eos # (Auto) 0.1 10^3/uL (0.0-0.8) 04/20/24 16:20 Baso # (Auto) 0.1 10^3/uL (0.0-0.1) 04/20/24 16:20 Nucleated RBC % (auto) 0 % 04/20/24 16:20 Nucleated RBCs # 0.0 /100WBC 04/20/24 16:20 Sodium 114 mmol/L (136-145) L* 04/20/24 16:20 Potassium 4.7 mmol/L (3.5-5.1) 04/20/24 16:20 Chloride 79 mmol/L (98-107) L 04/20/24 16:20 Carbon Dioxide 24 mmol/L (22-29) 04/20/24 16:20 Anion Gap 15.7 (5-19) 04/20/24 16:20 BUN 13 mg/dL (8-23) 04/20/24 16:20 Creatinine 0.9 mg/dL (0.5-0.9) 04/20/24 16:20 GFR Calculation Not Reportable 04/20/24 16:20 Glucose 123 mg/dL (65-115) H 04/20/24 16:20 Calculated Osmolality 239 mOsm/kg (285-295) L 04/20/24 16:20 Lactic Acid 1.6 mmol/L (0.5-2.2) 04/20/24 16:20 Calcium 9.1 mg/dL (8.5-10.5) 04/20/24 16:20 Total Bilirubin 0.5 mg/dL (0.15-1.2) 04/20/24 16:20 AST 18 U/L (0-32) 04/20/24 16:20 ALT 10 U/L (0-33) 04/20/24 16:20 Alkaline Phosphatase 104 U/L (35-105) 04/20/24 16:20 Troponin T Baseline 16 ng/L (0-10) H 04/20/24 16:20 Total Protein 7.3 g/dL (6.6-8.7) 04/20/24 16:20 Albumin 4.2 g/dL (3.5-5.2) 04/20/24 16:20 Globulin 3.1 g/dL (1.3-4.6) 04/20/24 16:20 Lipase 36 U/L (13-60) 04/20/24 16:20 XR interpretation done by ED provider, pending radiology final review EKG Data EKG 1: I personally reviewed and interpreted this EKG as follows: EKG interpretation date: 04/20/24 EKG interpretation time: 16:04 Prior EKG tracings: not available for review Interpretation: EKG shows a sinus rhythm with a regular rate at [address] elevation is noted. No ectopy is noted. No prior exam was available for comparison. Mild artifact was present. EKG was reviewed with Dr. Pugh, attending ER physician. Computer generated interpretation: Sinus rhythm, possible left atrial enlargement, right bundle branch block, abnormal EKG, unconfirmed report. Discharge Plan Discharge Patient Disposition: Admitted As Inpatient Admit Provider: Kandis Gates Clinical Impression: Hyponatremia Condition: Stable Coding Level of Care Code ED Software Test Automation Engineer for Chg Fwd Documented by User: Jad Garcia MD 04/20/24 21:14 HPI - Nausea/Vomiting/Diarrhea General: Chief complaint: Nausea/Vomiting/Diarrhea Stated complaint: N/V Time Seen by Provider: 04/20/24 15:44 PFSH ED PFSH: Medical History (Updated 04/20/24 @ 18:22 by Kandis Gates MD) Hypomagnesemia Essential hypertension Hyponatremia chronic. previously on Samsca, but now on thermotabs Stage 3a chronic kidney disease (CKD) baseline creatinine is 1.1 Diastolic CHF last echo 12/202223. Grade 1/4 diastolic dysfunction. EF 64% 12/2022. mild MR. mild tricuspid regurg. Heart murmur Diabetes mellitus diet controlled Macular degeneration Iron deficiency anemia Vitamin D deficiency Vitamin B12 deficiency Gastroesophageal reflux Meniere's disease Hearing loss Seasonal allergies Kyphosis Primary osteoarthritis of knees, bilateral Rheumatoid arthritis Hyperkalemia intermittent Surgical History Status post total left knee replacement using cement Date of procedure: May 22, 2023 Diagnosis: Primary osteoarthritis left knee with flexion contracture and varus deformity Procedure done: Left total knee arthroplasty with Hermilo guidance Implants: The Athletic Standard total knee system with a size 3 triathlon cruciate retaining left femur, cemented, a triathlon universal tibial component size 3, cemented, a triathlon X3 tibial bearing CS insert size 3 X 11 mm and a cemented triathlon asymmetric patella size 35 x 10 mm. Biosteon Intraline 5.5mm Suture anchor with #2 Force Fiber History of hernia surgery H/O: hysterectomy H/O repair of rotator cuff History of carpal tunnel release History of partial surgical removal of colon Family History Father ALS (amyotrophic lateral sclerosis) CAD (coronary artery disease) Mother Stroke Social History Smoking and tobacco/nicotine status: never used tobacco/nicotine Alcohol intake: never Substance/Drug Use: never Marital status: / Course Vital Signs: Vital signs: Vital Signs Temperature 98 F 04/20/24 20:00 Pulse Rate 96 04/20/24 20:00 Respiratory Rate 20 H 04/20/24 20:00 Blood Pressure 165/58 04/20/24 20:15 Pulse Oximetry 96 04/20/24 20:00 Oxygen Delivery Me thod Room Air 04/20/24 20:00 MDM - Nausea/Vomiting/Diarrhea Medical Decision Making Patient comes in today for concerns of persistent nausea and vomiting for approximately 2 weeks. Patient has had vomiting episodes since her eye surgery on the . Patient was seen last Sunday and was diagnosed with possible early pneumonia and given some Zofran to help with her nausea and vomiting. Daughter also reports that patient has been constipated which up until yesterday she had not had a good bowel movement and only some pebble-like stool yesterday. Patient appears nontoxic and in mild to no pain. Vital signs are normal except for some elevated blood pressure at 183. Differential diagnosis includes but not limited to constipation, bowel obstruction unlikely, UTI, pneumonia, dehydration, hyponatremia. CBC was unremarkable. CMP noted sodium 114. Chest x-ray showed no acute cardiopulmonary process and KUB was unremarkable. Reviewed exam with Dr. Gates she excepted patient for hypokalemia to ICU. Patient was started on a normal saline drip. Dr. Garcia, attending ER physician was consulted for admit orders and agreed to plan. Case was discussed with me, I personally examined the patient no critical findings of hyponatremia such as seizure. Agree with current management and patient be admitted to the ICU. Lab Data 04/20/24 16:20 04/20/24 19:17 Radiology Impressions Chest X-Ray 04/20/24 15:44 IMPRESSION: No acute cardiopulmonary disease. KUB X-Ray 04/20/24 15:54 IMPRESSION: No plain film evidence of acute intra-abdominal or pelvic process. Abdomen/Pelvis CT 04/20/24 17:26 IMPRESSION: 1. No acute intra-abdominal or pelvic process. 2. Other nonemergent findings above. Head CT 04/20/24 18:32 IMPRESSION: 1. No acute intracranial pathology. 2. Senescent changes. Laboratory Results WBC 10.10 10^3/uL (3.29-11.43) 04/20/24 16:20 RBC 4.06 10^6/uL (3.85-5.65) 04/20/24 16:20 Hgb 11.60 g/dL (11.27-16.99) 04/20/24 16:20 Hct 34.5 % (36-47) L 04/20/24 16:20 MCV 85.0 fl (85-98) 04/20/24 16:20 MCH 28.6 pg (27-33) 04/20/24 16:20 MCHC 33.6 g/dL (30-55) 04/20/24 16:20 RDW 13.5 % (12.1-15.1) 04/20/24 16:20 Plt Count 362 10^3/cmm (157-399) 04/20/24 16:20 MPV 8.6 fL (7.4-10.4) 04/20/24 16:20 Neut % (Auto) 74.3 % 04/20/24 16:20 Lymph % (Auto) 12.3 % 04/20/24 16:20 Mckean % (Auto) 10.6 % 04/20/24 16:20 Eos % (Auto) 1.4 % 04/20/24 16:20 Baso % (Auto) 0.9 % 04/20/24 16:20 Neut # (Auto) 7.51 10^3/uL (1.8-7.7) 04/20/24 16:20 Lymph # (Auto) 1.2 10^3/uL (0.8-4.8) 04/20/24 16:20 Mckean # (Auto) 1.1 10^3/uL (0.2-0.9) H 04/20/24 16:20 Eos # (Auto) 0.1 10^3/uL (0.0-0.8) 04/20/24 16:20 Baso # (Auto) 0.1 10^3/uL (0.0-0.1) 04/20/24 16:20 Nucleated RBC % (auto) 0 % 04/20/24 16:20 Nucleated RBCs # 0.0 /100WBC 04/20/24 16:20 Sodium 114 mmol/L (136-145) L* 04/20/24 16:20 Potassium 4.7 mmol/L (3.5-5.1) 04/20/24 16:20 Chloride 79 mmol/L (98-107) L 04/20/24 16:20 Carbon Dioxide 24 mmol/L (22-29) 04/20/24 16:20 Anion Gap 15.7 (5-19) 04/20/24 16:20 BUN 13 mg/dL (8-23) 04/20/24 16:20 Creatinine 0.9 mg/dL (0.5-0.9) 04/20/24 16:20 GFR Calculation Not Reportable 04/20/24 16:20 Glucose 123 mg/dL (65-115) H 04/20/24 16:20 Calculated Osmolality 239 mOsm/kg (285-295) L 04/20/24 16:20 Lactic Acid 1.6 mmol/L (0.5-2.2) 04/20/24 16:20 Calcium 9.1 mg/dL (8.5-10.5) 04/20/24 16:20 Total Bilirubin 0.5 mg/dL (0.15-1.2) 04/20/24 16:20 AST 18 U/L (0-32) 04/20/24 16:20 ALT 10 U/L (0-33) 04/20/24 16:20 Alkaline Phosphatase 104 U/L (35-105) 04/20/24 16:20 Troponin T Baseline 16 ng/L (0-10) H 04/20/24 16:20 Total Protein 7.3 g/dL (6.6-8.7) 04/20/24 16:20 Albumin 4.2 g/dL (3.5-5.2) 04/20/24 16:20 Globulin 3.1 g/dL (1.3-4.6) 04/20/24 16:20 Lipase 36 U/L (13-60) 04/20/24 16:20 Discharge Plan Discharge Patient Disposition: Admitted As Inpatient Admit Provider: Kandis Gates Clinical Impression: Hyponatremia Condition: Stable Coding Level of Care Code ED Software Test Automation Engineer for Chg Devante
--- NOTE | 2024-04-20 15:51 | ECG_ITS ---
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 Measurements Intervals [place] Rate: 90 P: 42 VA: 192 QRS: -11 QRSD: 144 T: 22 QT: 365 QTc: 447 Interpretive Statements SINUS RHYTHM POSSIBLE LEFT ATRIAL ENLARGEMENT [-0.1mV P-WAVE IN V1/V2] RIGHT BUNDLE BRANCH BLOCK [120+ ms QRS DURATION, UPRIGHT V1, 40+ ms S IN I/aVL/V4/V5/V6] Compared to ECG 01/06/2023 23:10:24 Atrial flutter no longer present Electronically Signed On 04-21-2024 14:45:32 CDT by Xavier Ramirez M.D. [id number]
--- NOTE | 2024-04-20 15:54 | XRR_ITS ---
PROCEDURE INFORMATION: Exam: XR Abdomen Exam date and time: 04/20/2024 3:55 PM Age: 88 years old Clinical indication: Constipation; Additional info: Cough; Nausea; Constipation TECHNIQUE: Imaging protocol: Radiologic exam of the abdomen. Views: Frontal supine view of the abdomen. 1 View. COMPARISON: CT abdomen pelvis w con* [id number] 01/06/2023 8:36 PM FINDINGS: Gastrointestinal tract: Nonspecific bowel-gas pattern without evidence of large or small bowel obstruction. Bones/joints: Unremarkable. XR/XR KUB [id number] IMPRESSION: No plain film evidence of acute intra-abdominal or pelvic process.
[2024-04-20] MEDS: sodium chloride 0.9% 1,000 ML 999 ML IV (16:24)
[2024-04-20] MEDS: metoclopramide 5 mg/mL SDV 2 mL 10 MG IVP (16:24)
[2024-04-20 16:59] LABS: Basophils # 0.1 10^3/uL (0.0-0.1); Basophils % 0.9 %; Eosinophils # 0.1 10^3/uL (0.0-0.8); Eosinophils % 1.4 %; Hematocrit 34.5 % (36-47); Lymphocytes # 1.2 10^3/uL (0.8-4.8); Lymphocytes % 12.3 %; Mean Corpuscular HGB Conc 33.6 g/dL (30-55); Mean Corpuscular Hemoglobin 28.6 pg (27-33); Mean Platelet Volume 8.6 fL (7.4-10.4); Monocytes # 1.1 10^3/uL (0.2-0.9); Monocytes % 10.6 %; Neutrophils # 7.51 10^3/uL (1.8-7.7); Neutrophils % 74.3 %; Nucleated Red Blood Cells % 0 %; Platelet Count 362 10^3/cmm (157-399); Red Blood Count 4.06 10^6/uL (3.85-5.65); Red Cell Distribution Width 13.5 % (12.1-15.1)
[2024-04-20 17:14] LABS: Lactic Sepsis W/Reflex 1.6 mmol/L (0.5-2.2)
[2024-04-20 17:15] LABS: Troponin(5th) Baseline 16 ng/L (0-10)
[2024-04-20 17:21] LABS: Alanine Aminotransferase 10 U/L (0-33); Albumin Level 4.2 g/dL (3.5-5.2); Alkaline Phosphatase 104 U/L (35-105); Anion Gap 15.7 (5-19); Aspartate Amino Transferase 18 U/L (0-32); Blood Urea Nitrogen 13 mg/dL (8-23); Calcium 9.1 mg/dL (8.5-10.5); Carbon Dioxide 24 mmol/L (22-29); Chloride 79 mmol/L (98-107); Globulin 3.1 g/dL (1.3-4.6); Glucose 123 mg/dL (65-115); Lipase 36 U/L (13-60); Osmolality Calculated 239 mOsm/kg (285-295); Potassium 4.7 mmol/L (3.5-5.1); Total Bilirubin 0.5 mg/dL (0.15-1.2); Total Protein 7.3 g/dL (6.6-8.7)
[2024-04-20 17:24] LABS: Sodium 114 mmol/L (136-145)
--- NOTE | 2024-04-20 17:26 | CTR_ITS ---
PROCEDURE INFORMATION: Exam: CT Abdomen And Pelvis With Contrast Exam date and time: 04/20/2024 6:05 PM Age: 88 years old Clinical indication: Nausea and vomiting; Prior surgery; Surgery date: 6+ months; Surgery type: Hernia repair. Hysterectomy. Colon. Patient HX: Persistent n/v with constipation. TECHNIQUE: Imaging protocol: Computed tomography of the abdomen and pelvis with contrast. Radiation optimization: All CT scans at this facility use at least one of these dose optimization techniques: automated exposure control; mA and/or kV adjustment per patient size (includes targeted exams where dose is matched to clinical indication); or iterative reconstruction. Contrast material: OMNI 350; Contrast volume: 100 ml; Contrast route: INTRAVENOUS (IV); COMPARISON: CT abdomen pelvis w con* [id number] 01/06/2023 8:36 PM RADIATION DOSE METRICS: Total DLP (mGy-cm): 771.01 FINDINGS: Lungs: Mild left basilar atelectasis. Heart: Mild cardiomegaly. No pericardial effusion or pericardial thickening. Diaphragm: Small hiatal hernia. Liver: The liver is normal. No hepatic masses are identified. Gallbladder and biliary ducts: Normal. No calcified stones. No ductal dilation. Pancreas: The pancreas is normal. Spleen: The spleen is normal. Adrenal glands: The adrenal glands are normal. Kidneys and ureters: There is normal enhancement of the kidneys. No renal calcifications are identified. There is no hydronephrosis. Stomach and bowel: Postoperative changes in the region of the cecum. No evidence of large or small bowel obstruction. No evidence of bowel wall thickening. Appendix: Postoperative changes in the expected location of the appendix. Intraperitoneal space: No inflammatory changes are identified. There is no free fluid or fluid collection seen. There is no pneumoperitoneum. Vasculature: Atherosclerotic calcifications of the aorta are present. No aneurysm is identified. Lymph nodes: No enlarged lymph nodes are identified. Urinary bladder: The bladder is mildly patulous. The anterior right urinary bladder extends into a right inguinal hernia. Reproductive: The uterus is absent. Bones/joints: No acute osseous abnormalities are seen. Moderate levoscoliosis. Chronic right superior and inferior pubic rami fractures. Soft tissues: Apparent pelvic floor dysfunction. Moderate right inguinal hernia containing right anterior bladder. The soft tissues are otherwise within normal limits. CT/CT abdomen pelvis w con* [id number] IMPRESSION: 1. No acute intra-abdominal or pelvic process. 2. Other nonemergent findings above.
--- NOTE | 2024-04-20 17:45 | ECG_ITS ---
[facility] Test Date: 2024-04-20 Pat Name: Marie Coe Department: Room: ED Gender: Female Rn Surgical Pcu: : 1935 Requested By: William Sams Order Number: [id number] Terry MD: Xavier Ramirez M.D. Measurements Intervals [place] Rate: 95 P: 37 [place]: 217 QRS: -19 QRSD: 150 T: 25 QT: 379 QTc: 478 Interpretive Statements SINUS RHYTHM WITH FIRST DEGREE AV BLOCK WITH OCCASIONAL SUPRAVENTRICULAR PREMATURE COMPLEXES POSSIBLE LEFT ATRIAL ENLARGEMENT [-0.1mV P-WAVE IN V1/V2] RIGHT BUNDLE BRANCH BLOCK [120+ ms QRS DURATION, UPRIGHT V1, 40+ ms S IN I/aVL/V4/V5/V6] SEPTAL MYOCARDIAL INFARCTION , OF INDETERMINATE AGE [40+ ms Q WAVE IN V1/V2] Compared to ECG 04/20/2024 15:51:56 First degree AV block now present Myocardial infarct finding now present Electronically Signed On 04-21-2024 14:50:15 CDT by Xavier Ramirez M.D. [id number]
[2024-04-20 18:08] LABS: Add Urine Microscopic? NO; Charge for UA Resulting for Rev
[2024-04-20] MEDS: iohexol 350 mg/mL 500 mL Btl (per mL) IV (18:08)
--- NOTE | 2024-04-20 18:13 | PM.HP ---
Providers/Chief Complaint Admitting Physician: Kandis Gates MD Primary Care Provider: Bryan Calixto Chief Complaint: N/V History of Present Illness Marie Coe is a 88 year old female With past medical history of hyponatremia apparently was on Thermotabs, CKD stage III, diastolic CHF, diabetes mellitus, iron deficiency anemia, vitamin D deficiency, vitamin B12 deficiency, M?ni?re's disease, osteoarthritis, hypertension presented to the hospital today with complaint of nausea vomiting for the last 1 week. She had similar complaints about a week ago at her primary care doctor's office. At that time she was thought to have an early pneumonia and she was placed on antibiotics and has 1 dose of Levaquin left. She said she had eye surgery done on 08 April and since then she has been having issues with nausea vomiting. She has felt clammy and has had small bowel movements. She believes she might be constipated. Patient's daughter states that she used to be on tolvaptan for years after having bowel resection as that was the only way to keep her sodium levels up however the first of this year Medicare stated that they would only pay for salt tablets and will not cover the tolvaptan. Therefore it was discontinued. She says she has been dealing with low sodium issues for years now. Recently she saw her primary care doctor and her salt tablets were doubled and dosing however that has not helped. Patient continues to have nausea vomiting. Daughter states patient is a very comical person however she has had a personality change. Patient is alert oriented x 3 at this time however has a flat affect. ED course is currently is 169/78, pulse ox 97 Room air, respirate 16, pulse 94, temperature 98.2. Sodium found to be [address] on arrival. Chloride 79 CT abdomen pelvis has been ordered and pending. Abdomen x-ray shows no acute intra-abdominal pelvic process. Chest x-ray does not show any evidence of pneumonia. Medications/Allergies Home Medications Medication Instructions Recorded Confirmed Last Taken Type ascorbic acid 1,000 1,000 mg PO DAILY 07/19/20 04/15/24 01/09/24 History mm-rptetqmvtbnf-hqzpcpsd powder effervescent pack (Emergen-C Immune Plus) zinc acetate 25 mg (zinc) capsule 50 mg PO DAILY 07/19/20 04/15/24 01/09/24 History Custom Accomadative orthotic #1 ea 09/13/20 04/15/24 Unknown Rx SMO ankle brace #1 ea 10/26/20 04/15/24 Unknown Rx cholecalciferol (vitamin D3) 125 125 mcg PO DAILY 09/28/22 04/15/24 01/09/24 History mcg (5,000 unit) capsule loratadine 10 mg tablet (Claritin) 10 mg PO DAILY 09/28/22 04/15/24 01/09/24 History magnesium oxide 500 mg PO DAILY 05/23/23 04/15/24 01/09/24 History omega-3 fatty acids 1,000 mg 1,000 mg PO DAILY 05/23/23 04/15/24 12/19/23 History capsule vit S81-qoamtqjgy factor-folic 2 tab PO DAILY 05/23/23 04/15/24 01/09/24 History acid cmb#2 500 mcg-20 mg-800 mcg tablet ASO #1 ea 06/12/23 04/15/24 Unknown Rx wheelchair #1 ea 06/13/23 04/15/24 Unknown Rx HEWITT balance braces #1 ea 06/26/23 04/15/24 Unknown Rx gabapentin 100 mg capsule See Rx Instructions .Route 07/16/23 04/15/24 01/09/24 Rx .COMPLEX #450 caps pantoprazole 40 mg tablet,delayed 40 mg PO DAILY 90 days #90 tabs 10/31/23 04/15/24 01/09/24 Rx release folic acid 400 mcg tablet 0.4 mg PO DAILY 01/11/24 04/15/24 01/10/24 History vhehygqq-rqr-ktflq ac 400 1 tab PO QAM 01/11/24 04/15/24 01/09/24 History mcg-calcium carb 500 mg-vit K1 20 mcg tablet sodium chloride-potassium chloride See Rx Instructions .Route .COMPLEX 01/11/24 04/15/24 01/09/24 History 287 mg-180 mg-15 mg tablet (Thermotabs) losartan 50 mg tablet 50 mg PO DAILY 90 days #90 tabs 01/17/24 04/15/24 Unknown Rx montelukast 10 mg tablet 10 mg PO DAILY #90 tabs 01/17/24 04/15/24 Unknown Rx betamethasone valerate 0.1 % 1 applic topical DAILY #15 grams 01/29/24 04/15/24 Unknown Rx topical cream tramadol 50 mg tablet 25 mg (1/2 x 50 mg) PO BID PRN 01/29/24 04/15/24 Unknown Rx pain #30 tabs albuterol sulfate 90 mcg/actuation 2 inh inhalation Q6H PRN shortness 02/13/24 04/15/24 Unknown Rx aerosol inhaler of breath or wheezing #8.5 grams mupirocin 2 % topical ointment 1 applic topical BID #15 grams 02/13/24 04/15/24 Unknown Rx aspirin 81 mg tablet,delayed 81 mg PO DAILY 04/15/24 04/15/24 Unknown History release ferrous sulfate 325 mg (65 mg 325 mg PO DAILY 04/15/24 04/15/24 Unknown History iron) tablet levofloxacin 500 mg tablet 500 mg PO DAILY #7 tabs 04/15/24 04/15/24 Unknown Rx ondansetron 4 mg disintegrating 4 mg PO Q8H PRN nausea and 04/15/24 04/15/24 Unknown Rx tablet vomiting #30 tabs furosemide 20 mg tablet 20 mg PO DAILY #30 tabs 04/16/24 Unknown Rx Allergies Allergy/AdvReac Type Severity Reaction Status Date / Time oxycodone [From Percocet] Allergy Unknown Unknown Verified 04/17/24 09:11 hydrocodone Allergy ADR/ALGY-Fl Verified 04/17/24 09:11 ushing Sulfa (Sulfonamide Allergy unknown Verified 04/17/24 09:11 Antibiotics) PFSH Acute PFSH: Medical History (Updated 04/20/24 @ 18:22 by Kandis Gates MD) Hypomagnesemia Essential hypertension Hyponatremia chronic. previously on Samsca, but now on thermotabs Stage 3a chronic kidney disease (CKD) baseline creatinine is 1.1 Diastolic CHF last echo 12/202223. Grade 1/4 diastolic dysfunction. EF 64% 12/2022. mild MR. mild tricuspid regurg. Heart murmur Diabetes mellitus diet controlled Macular degeneration Iron deficiency anemia Vitamin D deficiency Vitamin B12 deficiency Gastroesophageal reflux Meniere's disease Hearing loss Seasonal allergies Kyphosis Primary osteoarthritis of knees, bilateral Rheumatoid arthritis Hyperkalemia intermittent Surgical History Status post total left knee replacement using cement Date of procedure: May 22, 2023 Diagnosis: Primary osteoarthritis left knee with flexion contracture and varus deformity Procedure done: Left total knee arthroplasty with Hermilo guidance Implants: The [employer] total knee system with a size 3 triathlon cruciate retaining left femur, cemented, a triathlon universal tibial component size 3, cemented, a triathlon X3 tibial bearing CS insert size 3 X 11 mm and a cemented triathlon asymmetric patella size 35 x 10 mm. Biosteon Intraline 5.5mm Suture anchor with #2 Force Fiber History of hernia surgery H/O: hysterectomy H/O repair of rotator cuff History of carpal tunnel release History of partial surgical removal of colon Family History Father ALS (amyotrophic lateral sclerosis) CAD (coronary artery disease) Mother Stroke Social History Smoking and tobacco/nicotine status: never used tobacco/nicotine Alcohol intake: never Substance/Drug Use: never Marital status: / Vitals/I&O/Wt Last Vital Signs Temp 98.2 F 04/20/24 15:39 Pulse 94 04/20/24 16:30 Resp 16 04/20/24 15:39 BP 169/78 04/20/24 16:30 Pulse Ox 97 04/20/24 16:30 O2 Del Method Room Air 04/20/24 16:30 Physical Exam Narrative: General: Alert oriented x3, patient seen laying in bed in presence of daughter. HEENT: Normocephalic, atraumatic, EOMI, waiting room air Cardio: Regular rate rhythm, normal S1-S2, Respiratory: Clear to auscultation bilaterally GI: Abdomen soft, nontender, bowel sounds + Extremities: No edema bilateral lower extremities. 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 insulin use: without custodial use Diabetes mellitus type: type 2 Qualified Code(s): E11.9 - Type 2 diabetes mellitus without complications (3) Vitamin B12 deficiency: (4) Gastroesophageal reflux: Qualifiers: Esophagitis presence: without esophagitis Qualified Code(s): K21.9 - Gastro-esophageal reflux disease without esophagitis (5) Iron deficiency anemia: Qualifiers: Iron deficiency anemia type: inadequate dietary iron intake Qualified Code(s): D50.8 - Other iron deficiency anemias (6) Hypertension: (7) Stage 3a chronic kidney disease (CKD): Plan #Acute hyponatremia on chronic hyponatremia #Nausea vomiting most likely secondary to above #Hypertension #CKD stage III #Diastolic CHF #Iron deficient anemia #B12 deficiency #Rheumatoid arthritis ? Repeat stat BMP before starting any therapy for sodium ? Patient will need to be started on tolvaptan at discharge. ? Check urine sodium ? Check urine osmolality, serum osmolality ? Consult nephrology ? Admit to ICU -Not to increase sodium more than 6-8 mill equivalent 24-hour period. ? zofran for nausea - continue losartan, protonix, aspirin, - confirm home meds - UA negative - Check head CT - ct abdomen pelvis reviewed ? Discussed with nephrology at length. DNR/DNI as per patient and daughter. Daughter is DPOA. dvt ppx: heparin sub c bID Attestations Medical Necessity Statement*: acute hyponatremia, continue care in ICu, > 2 midnight stay Diagnoses Essential hypertension I10 Type 2 diabetes mellitus without complication, without long-term current use of insulin E11.9 Diabetes mellitus complication status: without complication Diabetes mellitus custodial insulin use: without custodial use Diabetes mellitus type: type 2 Vitamin B12 deficiency E53.8 Gastroesophageal reflux disease without esophagitis K21.9 Esophagitis presence: without esophagitis Iron deficiency anemia secondary to inadequate dietary iron intake D50.8 Iron deficiency anemia type: inadequate dietary iron intake Hypertension I10 Stage 3a chronic kidney disease (CKD) N18.31
[2024-04-20 18:19] LABS: Bilirubin Urine Neg (Negative); Blood Urine Neg (Negative); Glucose Urine UA Norm (Normal); Ketones Urine Negative (Negative); Leukocyte Esterase Urine Negative (Negative); Nitrate Urine Negative (Negative); Protein Urine Neg (Negative); Specific Gravity, Urine 1.015 (1.005-1.030); Sulfosalicylic Acid Urine Negative (Negative); Urine Appearance Clear (CLEAR); Urine Color Yellow (Yellow); Urobilinogen Urine Neg (Negative); pH Urine 9 (5-7)
--- NOTE | 2024-04-20 18:32 | CTR_ITS ---
PROCEDURE INFORMATION: Exam: CT Head Without Contrast Exam date and time: 04/20/2024 6:46 PM Age: 88 years old Clinical indication: Other: N/v; Patient HX: Sodium 114; Additional info: Nausea/vomitting, acute hyponatremia TECHNIQUE: Imaging protocol: Computed tomography of the head without contrast. Radiation optimization: All CT scans at this facility use at least one of these dose optimization techniques: automated exposure control; mA and/or kV adjustment per patient size (includes targeted exams where dose is matched to clinical indication); or iterative reconstruction. COMPARISON: CT angio headneck* [id number] 01/06/2023 8:29 PM RADIATION DOSE METRICS: Total DLP (mGy-cm): 1009.8 FINDINGS: Brain: There is moderate cerebral atrophy. There are moderate to marked deep white matter microangiopathic ischemic changes. No acute hemorrhage is identified. No mass or mass effect is identified. Cerebral ventricles: Moderately dilated ventricles secondary to atrophy. Paranasal sinuses: The paranasal sinuses are clear. Mastoid air cells: The mastoid air cells are clear. Bones: No acute osseous abnormalities are seen. Soft tissues: The soft tissues are within normal limits. CT/CT head wo con* [id number] IMPRESSION: 1. No acute intracranial pathology. 2. Senescent changes.
--- OUTSIDE RECORDS SUMMARY | 2024-04-20 18:54 | XMS_ITS | Patient Health Record ---
Author Name Unknown Organization [facility] Address [address] [place] [address] Care Team Providers Care Cremator Name Role Phone Bryan Calixto Primary Care Provider [phone] Akbar Díaz Unavailable [phone] Bryan Calixto APRN Unavailable Unavailable Allergies Allergen (clinical drug ingredient) Drug/Non Drug Allergy documented on EMR Reaction Allergy Type Onset Date Status acetaminophen / oxycodone Percocet Unknown Drug Allergy Active Reason For Referral No Information Medications Medication SIG (Take, Route, Frequency, Duration) Notes Start Date End Date Status Losartan Potassium 25 MG 1 tablet Orally Once a day for 90 days Active Benzonatate 100 MG 2 capsules as needed Orally Three times a day for 14 days Not-Taking Gabapentin 100 MG as directed, 1 tablet in AM, 1 tab at noon, 3 tabs in evening Orally TID for 90 days Active Multi-Vitamin - 1 tablet Orally Once a day Active Montelukast Sodium 10 MG 1 tablet Orally Once a day for 90 days Active Fish Oil 1000 MG 1 capsule Orally Once a day Active Omeprazole 20 MG 1 capsule 30 minutes before morning meal Orally Once a day for 90 days Active Folic Acid 5 MG 1 capsule Orally Once a day Active Spironolactone 25 MG 1 tablet Orally Once a day for 90 days Active Vitamin B12 500 MCG 1 tablet Orally Once a day for 30 day(s) she says she takes 5000 mcg per day Active Samsca 15 MG 1 tablet Orally Once a day for 90 days E87.1 Hyponatremia Active Iron (Ferrous Sulfate) 325 MG 1 tablet Orally Once a day Active Metoprolol Tartrate 25 MG 1 tablet with food Orally Twice a day for 90 days Active Thermotabs - 1 tab Orally four times per day Active Zinc 30 MG 1 tablet Orally Once a day Not-Taking Spirometer - as directed every hour for 14 days 08/02/2020 Active Emergen-C Immune - as directed Orally daily Not-Taking Albuterol 90 MCG/ACT as directed Inhalation Q 4 hours as needed for 30 Active Tylenol with Codeine #3 300-30 MG 1 tablet as needed Orally daily for 30 days Uses for diarrhea Not-Taking Vitamin D3 50 MCG (1999 UT) 1 capsule Orally Once a day Active Claritin 10 MG 1 tablet Orally Once a day for 30 day(s) Not-Taking Immunizations Vaccine Route Administration Date Status Comme nts Afluria Quadrivalent Influenza Vaccine 3 years+ IM Intramuscular 09/02/2020 Administered Social History Tobacco Use: Social History Observation Description Date Details (start date - stop date) Never Smoker NA - NA Household Question Answer Notes Marital status: Number of adults in household: ciarra fisher with her daughter Level of education: not finished high school xTobacco Use/Smoking Question Answer Notes Are you a nonsmoker Alcohol Screen (Audit-C) Question Answer Notes Did you have a drink containing alcohol in the p ast year? No Points 0 Interpretation Negative Problems Problem Type SNOMED Code ICD Code Onset Dates Problem Status W/U Status Risk Notes Problem 89044926 Other chronic pain (G89.29) Active confirmed Problem 334331743976952 Pain in left kne e (M25.562) Active confirmed Problem Hyponatremia (45910916) Hyponatremia (E87.1) Active confirmed Problem 360480240 Diabetes mellitu s type 2 in nonobese (E11.9) Active confirmed Problem 761498793 Chronic diarrhea (K52.9) Active confirmed Problem Osteoarthritis (904224221) Osteoarthritis (M19.90) Active confirmed Problem Hypertension (45330973) Hypertension (I10) Active confirmed Problem 41460910 Urinary tract infection without hematuria, site unspecified (N39.0) Inactive confirmed Problem 551221619 Klebsiella infection (A49.8) Inactive confirmed Encounters Encounter Location Date Provider Diagnosis [facility] [address] [place] [address] Dr Arthur [address] [place] [address] 11/07/2023 Akbar Díaz Plan Of Treatment No Information Insurance Providers Payer Name Payer Address Payer Phone Subscriber Number Group Number Insured Name Patient Relationship to Insured Coverage Start Date Coverage End Date [place] [address] [address] [place] [phone] [id number] Jennifer Coea Self - patient is the insured Medical (General) History Medical History History ICD Code Hyponatremia E87.1 Seasonal allergies 477.9 Essential hypertension I10 Cough R05 Knee pain, bilateral 719.46 Heart murmur R01.1 Vitamin D deficiency E55.9 Rheumatoid arthritis M06.9 Vitamin B12 deficiency 266.2 Chronic anemia D64.9 Diabetes mellitus type 2, noninsulin dep endent E11.9 Gastroesophageal reflux disease without esophagitis K21.9 Hearing difficulty of both ears H91.93 Hearing aid worn Z97.4 diastolic CHF Surgical History Surgery Date(Month/Year) Hernia surgery X 3 Hysterectomy Bilateral shoulder rotator cuff repair 10 inches of colon removed Bilateral carpal tunnel release Bilateral knee scope procedures Broken ankle repair Left Skin spot removal-precancerous lesions Cataract removal bilateral Hospitalization History Reason Date(Month/Year) Food poisoning
[2024-04-20 19:17] LABS: Troponin 5 2HR 16.82 ng/L (0-10); Troponin 5 2HR Delta 0.82 ABS# (0-10)
[2024-04-20] MEDS: metoclopramide 5 mg/mL SDV 2 mL IVP (19:21)
--- NOTE | 2024-04-20 19:44 | XRR_ITS ---
PROCEDURE INFORMATION: Exam: XR Chest Exam date and time: 04/20/2024 9:28 PM Age: 88 years old Clinical indication: Device placement; Patient HX: Picc line confirmation TECHNIQUE: Imaging protocol: Radiologic exam of the chest. Views: 1 view. COMPARISON: CR XR chest 1V portable [id number] 20/04/2024 15:53 FINDINGS: Limitations: Patient rotation limits evaluation. Tubes, catheters and devices: Right arm PICC line tip in the superior vena cava. Lungs: There is no evidence of focal pulmonary consolidation. Pleural spaces: No pleural effusion or pneumothorax. Heart/Mediastinum: Normal in size. Bones/joints: No acute fracture is identified. XR/XR chest 1V portable [id number] IMPRESSION: Right arm PICC line tip in the superior vena cava.
[2024-04-20 19:53] LABS: Anion Gap 12.4 (5-19); Blood Urea Nitrogen 13 mg/dL (8-23); Calcium 8.3 mg/dL (8.5-10.5); Carbon Dioxide 24 mmol/L (22-29); Chloride 81 mmol/L (98-107); Glucose 125 mg/dL (65-115); Osmolality Calculated 238 mOsm/kg (285-295); Potassium 4.4 mmol/L (3.5-5.1)
[2024-04-20 19:54] LABS: Lactic Sepsis W/Reflex 1.4 mmol/L (0.5-2.2)
[2024-04-20 20:09] LABS: Sodium 113 mmol/L (136-145)
--- NOTE | 2024-04-20 20:28 | P.CONIM_ITS ---
Providers/Reason For Consult 2 Consulting Physician/Specialty*: [facility] /nephrology Reason for Consult*: Hyponatremia Attending Physician: Quincy Rivas MD Primary Care Provider: Bryan Calixto History of Present Illness History of Present Illness Marie Coe is a 88 year old female Patient is 88-year-old female with past medical history of chronic hyponatremia due to SIADH, chronic kidney disease, diastolic CHF, diabetes, osteoarthritis, hypertension presented to the hospital due to nausea vomiting going on for 1 week. Patient was using tolvaptan but has ran out about 1 week ago and the insurance has stopped covering for tolvaptan and she was asked to use salt tablets. Patient has intractable nausea and vomiting now. Blood pressures elevated in the ED, lab data significant for sodium of 114. She is currently not able to tolerate anything p.o. Review of Systems 2 Narrative: Other ros NEGATIVE Medications/Allergies Home Medications Medication Instructions Recorded Confirmed Last Taken Type ascorbic acid 1,000 1,000 mg PO DAILY 07/19/20 04/15/24 01/09/24 History mc-yzoilvuatuhq-vfgjnmdk powder effervescent pack (Emergen-C Immune Plus) zinc acetate 25 mg (zinc) capsule 50 mg PO DAILY 07/19/20 04/15/24 01/09/24 History Custom Accomadative orthotic #1 ea 09/13/20 04/15/24 Unknown Rx SMO ankle brace #1 ea 10/26/20 04/15/24 Unknown Rx cholecalciferol (vitamin D3) 125 125 mcg PO DAILY 09/28/22 04/15/24 01/09/24 History mcg (5,000 unit) capsule loratadine 10 mg tablet (Claritin) 10 mg PO DAILY 09/28/22 04/15/24 01/09/24 History magnesium oxide 500 mg PO DAILY 05/23/23 04/15/24 01/09/24 History omega-3 fatty acids 1,000 mg 1,000 mg PO DAILY 05/23/23 04/15/24 12/19/23 History capsule vit H84-xarkvdjuz factor-folic 2 tab PO DAILY 05/23/23 04/15/24 01/09/24 History acid cmb#2 500 mcg-20 mg-800 mcg tablet ASO #1 ea 06/12/23 04/15/24 Unknown Rx wheelchair #1 ea 06/13/23 04/15/24 Unknown Rx HEWITT balance braces #1 ea 06/26/23 04/15/24 Unknown Rx gabapentin 100 mg capsule See Rx Instructions .Route 07/16/23 04/15/24 01/09/24 Rx .COMPLEX #450 caps pantoprazole 40 mg tablet,delayed 40 mg PO DAILY 90 days #90 tabs 10/31/23 04/15/24 01/09/24 Rx release folic acid 400 mcg tablet 0.4 mg PO DAILY 01/11/24 04/15/24 01/10/24 History cpotcvpg-exf-dvpfn ac 400 1 tab PO QAM 01/11/24 04/15/24 01/09/24 History mcg-calcium carb 500 mg-vit K1 20 mcg tablet sodium chloride-potassium chloride See Rx Instructions .Route .COMPLEX 01/11/24 04/15/24 01/09/24 History 287 mg-180 mg-15 mg tablet (Thermotabs) losartan 50 mg tablet 50 mg PO DAILY 90 days #90 tabs 01/17/24 04/15/24 Unknown Rx montelukast 10 mg tablet 10 mg PO DAILY #90 tabs 01/17/24 04/15/24 Unknown Rx betamethasone valerate 0.1 % 1 applic topical DAILY #15 grams 01/29/24 04/15/24 Unknown Rx topical cream tramadol 50 mg tablet 25 mg (1/2 x 50 mg) PO BID PRN 01/29/24 04/15/24 Unknown Rx pain #30 tabs albuterol sulfate 90 mcg/actuation 2 inh inhalation Q6H PRN shortness 02/13/24 04/15/24 Unknown Rx aerosol inhaler of breath or wheezing #8.5 grams mupirocin 2 % topical ointment 1 applic topical BID #15 grams 02/13/24 04/15/24 Unknown Rx aspirin 81 mg tablet,delayed 81 mg PO DAILY 04/15/24 04/15/24 Unknown History release ferrous sulfate 325 mg (65 mg 325 mg PO DAILY 04/15/24 04/15/24 Unknown History iron) tablet levofloxacin 500 mg tablet 500 mg PO DAILY #7 tabs 04/15/24 04/15/24 Unknown Rx ondansetron 4 mg disintegrating 4 mg PO Q8H PRN nausea and 04/15/24 04/15/24 Unknown Rx tablet vomiting #30 tabs furosemide 20 mg tablet 20 mg PO DAILY #30 tabs 04/16/24 Unknown Rx Allergies Allergy/AdvReac Type Severity Reaction Status Date / Time oxycodone [From Percocet] Allergy Unknown Unknown Verified 04/17/24 09:11 hydrocodone Allergy ADR/ALGY-Fl Verified 04/17/24 09:11 ushing Sulfa (Sulfonamide Allergy unknown Verified 04/17/24 09:11 Antibiotics) Current Medications Generic Name Dose Route Start Last Admin Trade Name Freq PRN Reason Stop Dose Admin Metoclopramide HCl 5 mg 04/20/24 19:10 04/20/24 19:21 Metoclopramide 5 Mg/Ml Sdv 2 Ml IVP 5 mg Q6H PRN Administration NAUSEA AND VOMITING PFSH Acute 2 PFSH: Medical History (Updated 04/20/24 @ 18:22 by Kandis Gates MD) Hypomagnesemia Essential hypertension Hyponatremia chronic. previously on Samsca, but now on thermotabs Stage 3a chronic kidney disease (CKD) baseline creatinine is 1.1 Diastolic CHF last echo 12/202223. Grade 1/4 diastolic dysfunction. EF 64% 12/2022. mild MR. mild tricuspid regurg. Heart murmur Diabetes mellitus diet controlled Macular degeneration Iron deficiency anemia Vitamin D deficiency Vitamin B12 deficiency Gastroesophageal reflux Meniere's disease Hearing loss Seasonal allergies Kyphosis Primary osteoarthritis of knees, bilateral Rheumatoid arthritis Hyperkalemia intermittent Surgical History Status post total left knee replacement using cement Date of procedure: May 22, 2023 Diagnosis: Primary osteoarthritis left knee with flexion contracture and varus deformity Procedure done: Left total knee arthroplasty with Hermilo guidance Implants: [employer] total knee system with a size 3 triathlon cruciate retaining left femur, cemented, a triathlon universal tibial component size 3, cemented, a triathlon X3 tibial bearing CS insert size 3 X 11 mm and a cemented triathlon asymmetric patella size 35 x 10 mm. Biosteon Intraline 5.5mm Suture anchor with #2 Force Fiber History of hernia surgery H/O: hysterectomy H/O repair of rotator cuff History of carpal tunnel release History of partial surgical removal of colon Family History Father ALS (amyotrophic lateral sclerosis) CAD (coronary artery disease) Mother Stroke Social History Smoking and tobacco/nicotine status: never used tobacco/nicotine Alcohol intake: never Substance/Drug Use: never Marital status: / Vitals/I&O/Wt Last Vital Signs Temp 98 F 04/20/24 20:00 Pulse 96 04/20/24 20:00 Resp 20 H 04/20/24 20:00 BP 165/58 04/20/24 20:15 Pulse Ox 96 04/20/24 20:00 O2 Del Method Room Air 04/20/24 20:00 Weight last 48 hrs Weight 63.503 kg Physical Exam 2 Narrative: awake , alert HEENT S1S2 RRR per report Lungs clear per report No edema Data 04/20/24 16:20 04/20/24 19:17 Micro: Microbiology 04/20/24 16:35 Blood Culture - Preliminary Blood SPECIMEN COLLECTED 04/20/24 16:30 Blood Culture - Preliminary Blood SPECIMEN COLLECTED A&P Assessment and plan (1) Hyponatremia: 1.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 Pt now with Na 113,, and has severe nausea vomiting. Patient getting PICC line placed and was started on 3% saline at 25 cc an hour, BMP every 4 hours, check urine sodium and urine osmolality. 2. Severe nausea vomiting: Likely from hyponatremia, 3% saline as above 3. Hypertension, resume home medications Consult Attestations 2 Medical Necessity Statement: per [place] Coding Level of Care Code Acute Code for g Fwd Diagnoses Hyponatremia E87.1
--- NOTE | 2024-04-20 20:35 | PC.NURSE ---
Promethazine Patient nauseous and vomiting despite reglan administration at 1921. Patient's daughter at bedside stated that zofran typically does not help patient's nausea. Dr. Walsh contacted and order received for 25 mg promethazine IM once.
--- NOTE | 2024-04-20 20:40 | PC.NURSE ---
Hypertonic saline Dr. Lovelace contacted at 2014 for critical sodium level of 113; message left. Dr. Lovelace contacted unit at 2024 and the following orders were received: check an osmolality urine as well as a urine sodium level, check a BMP Q4H and administer 3% saline continuously at 25 ml/hr.
[2024-04-20] MEDS: promethazine 25 mg/mL SDV 1 mL IM (20:48)
--- NOTE | 2024-04-20 22:13 | PICC.NOTE ---
Triple lumen PICC placed to right brachial vein. Referred to vascular access nurse for PICC placement due to need for 3% saline infusion due to hyponatremia. Risks and benefits discussed with both patient and daughter and informed consent obtained from patient daughter. Right arm assessed with right brachial vein measuring 3.5 mm, straight, and apparent best choice for placement. Using sterile technique and MST, right brachial vein accessed x 1 stick. Unable to thread guide wire. Second attempt made to other brachial vein with success. Mid-arm circumference measured 10 cm from right AC 33 cm. Trimmed cath 36 cm with 1 cm external length noted. CXR shows tip to appear to be distal SVC. Awaiting radiologist to read. Line secured with stat-lock. Insertion site covered with Biopatch, gauze, and TSM. Report given to bedside nurse, IDA Stevenson.
[2024-04-20 22:36] LABS: Anion Gap 13.5 (5-19); Blood Urea Nitrogen 13 mg/dL (8-23); Calcium 8.5 mg/dL (8.5-10.5); Carbon Dioxide 25 mmol/L (22-29); Chloride 82 mmol/L (98-107); Glucose 127 mg/dL (65-115); Osmolality Calculated 244 mOsm/kg (285-295); Potassium 4.5 mmol/L (3.5-5.1)
[2024-04-20 22:53] LABS: Sodium 116 mmol/L (136-145)
--- NOTE | 2024-04-20 22:55 | ECG_ITS ---
[facility] Test Date: 2024-04-20 Pat Name: Marie Coe Department: Room: ICU03 Gender: Female Ingot Weigher: : 1935 Requested By: William Sams Order Number: [id number] Terry MD: Xavier Ramirez M.D. Measurements Intervals [place] Rate: 91 P: 49 CO: 215 QRS: 14 QRSD: 145 T: 28 QT: 397 QTc: 489 Interpretive Statements SINUS RHYTHM WITH FIRST DEGREE AV BLOCK POSSIBLE LEFT ATRIAL ENLARGEMENT [-0.1mV P-WAVE IN V1/V2] RIGHT BUNDLE BRANCH BLOCK [120+ ms QRS DURATION, UPRIGHT V1, 40+ ms S IN I/aVL/V4/V5/V6] Compared to ECG 04/20/2024 18:17:35 Myocardial infarct finding no longer present Electronically Signed On 04-21-2024 14:50:21 CDT by Xavier Ramirez M.D. [email or web address]
[2024-04-20 23:02] LABS: Urine Random Sodium 71 mmol/L
--- NOTE | 2024-04-20 23:20 | PC.NURSE ---
Pain Patient complaining of abdominal pain at a 10 on a 1-[address] Walsh notified; order received for 50 mg tramadol PO once. See MAR for details.
[2024-04-20] MEDS: TRAMadol 50 mg Tablet PO (23:37)
--- NOTE | 2024-04-20 23:40 | PC.NURSE ---
Hyponatremia At 225, Patient's sodium level critical at 116. Dr. Lovelace contacted unsuccessfully at 2254; voicemail left. Second attempt made to contact Dr. Lovelace at [address] Walsh notified at 2334; order received to keep 3% saline administering until next sodium check.
[2024-04-21] VITALS (57 sets, daily range): BP systolic 120–195; BP diastolic 52–89; PULSE 66–116; RESP 13–27; TEMP 36.5–36.8; O2SAT 85–99; BMI 25.9
[2024-04-21 00:56] LABS: Troponin 5 6HR 23.97 ng/L (0-10); Troponin 5 6HR Delta 7.97 ng/L (0-12)
[2024-04-21 03:00] LABS: Anion Gap 10.2 (5-19); Blood Urea Nitrogen 12 mg/dL (8-23); Calcium 7.9 mg/dL (8.5-10.5); Carbon Dioxide 27 mmol/L (22-29); Chloride 88 mmol/L (98-107); Glucose 114 mg/dL (65-115); Osmolality Calculated 253 mOsm/kg (285-295); Potassium 4.2 mmol/L (3.5-5.1); Sodium 121 mmol/L (136-145)
--- NOTE | 2024-04-21 03:26 | PC.NURSE ---
Physician Communication Patient's sodium level [address] Lovelace notified; order received to stop hypertonic saline.
[2024-04-21 05:30] LABS: INR 1.07 (0.8-1.2)
[2024-04-21 05:32] LABS: Magnesium 1.6 mg/dL (1.7-2.3)
[2024-04-21 07:11] LABS: Anion Gap 12.1 (5-19); Blood Urea Nitrogen 12 mg/dL (8-23); Calcium 8.3 mg/dL (8.5-10.5); Carbon Dioxide 26 mmol/L (22-29); Chloride 89 mmol/L (98-107); Glucose 101 mg/dL (65-115); Osmolality Calculated 256 mOsm/kg (285-295); Potassium 4.1 mmol/L (3.5-5.1); Sodium 123 mmol/L (136-145)
--- NOTE | 2024-04-21 07:12 | P.PN_ITS ---
Subjective 2 Subjective: was on 3% saline - off now Medications: Reviewed: Yes Vitals/I&O/Wt Last Vital Signs Temp 98 F 04/21/24 04:45 Pulse 70 04/21/24 06:00 Resp 18 04/21/24 06:00 BP 151/67 04/21/24 06:00 Pulse Ox 97 04/21/24 06:00 O2 Del Method Room Air 04/21/24 04:45 O2 Flow Rate 21 04/20/24 23:12 04/20/24 04/21/24 04/21/24 22:59 06:59 14:59 Intake Total 119.583 / 119.583 Output Total 1950 / 1950 Balance -1830.417 / -1830.417 Weight last 48 hrs Weight 68.492 kg Weight 69.989 kg Weight 63.503 kg Physical Exam 2 Narrative: awake , alert HEENT S1S2 RRR per report Lungs clear per report No edema Urinary Catheter Management: Jeffers: Cath Placed During This Visit: yes Reason for Continuing Indwelling Catheter: Accurate Measurement of Urinary Output in Critically Ill Patients Urinary Catheter Date of Insertion: 04/20/24 Urinary Catheter Time of Insertion: 22:30 Data 04/21/24 09:57 04/21/24 14:47 Micro: Microbiology 04/20/24 16:35 Blood Culture - Preliminary Blood SPECIMEN COLLECTED 04/20/24 16:30 Blood Culture - Preliminary Blood SPECIMEN COLLECTED A&P Assessment and plan (1) Hyponatremia: 1.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 Pt presented with Na 113,, and has severe nausea vomiting. PICC line placed and started on 3% saline at 25 cc an hour, -Na up to123 , stopped 3% saline placed on fluid restriction add tolvaptan 2. Severe nausea vomiting: Likely from hyponatremia, 3% saline as above 3. Hypertension, resume home medications Attestations 2 Medical Necessity Statement*: per [place] Coding Level of Care Code Acute Code for g Fwd Diagnoses Hyponatremia E87.1
[2024-04-21] MEDS: losartan 50 mg Tablet PO (09:57)
[2024-04-21] MEDS: pantoprazole 40 mg SDV IVP (09:57)
[2024-04-21 10:17] LABS: Basophils # 0.1 10^3/uL (0.0-0.1); Basophils % 1.5 %; Eosinophils # 0.2 10^3/uL (0.0-0.8); Eosinophils % 2.9 %; Hematocrit 29.1 % (36-47); Lymphocytes # 0.9 10^3/uL (0.8-4.8); Lymphocytes % 14.5 %; Mean Corpuscular HGB Conc 33.3 g/dL (30-55); Mean Corpuscular Volume 87.1 fl (85-98); Mean Platelet Volume 8.3 fL (7.4-10.4); Monocytes # 0.9 10^3/uL (0.2-0.9); Monocytes % 14.5 %; Neutrophils # 4.05 10^3/uL (1.8-7.7); Neutrophils % 66.1 %; Nucleated Red Blood Cells % 0 %; Platelet Count 293 10^3/cmm (157-399); Red Blood Count 3.34 10^6/uL (3.85-5.65); Red Cell Distribution Width 13.8 % (12.1-15.1); White Blood Count 6.13 10^3/uL (3.29-11.43)
--- NOTE | 2024-04-21 10:37 | PC.PHAR ---
PT STATES DAUGHTER-JULITO TAKES CARE OF HER MEDICATIONS. UNABLE TO GET [facility] OF HER. VERIFIED RX MEDS WITH [facility] AND LEFT OTC'S ON HER LIST.
[2024-04-21 10:42] LABS: Anion Gap 12.3 (5-19); Blood Urea Nitrogen 12 mg/dL (8-23); Calcium 8.5 mg/dL (8.5-10.5); Carbon Dioxide 26 mmol/L (22-29); Chloride 91 mmol/L (98-107); Glucose 107 mg/dL (65-115); Osmolality Calculated 260 mOsm/kg (285-295); Potassium 4.3 mmol/L (3.5-5.1); Sodium 125 mmol/L (136-145)
--- NOTE | 2024-04-21 13:20 | P.PN_ITS ---
Subjective 2 Subjective: Hypertonic saline discontinued Patient is not expensing vomiting I will start regular diet with fluid restriction Tolvaptan prescription has been sent to our pharmacy to get prior authorization and hopefully approval Vitals/I&O/Wt Last Vital Signs Temp 97.9 F 04/21/24 08:00 Pulse 77 04/21/24 10:00 Resp 22 H 04/21/24 10:00 BP 120/62 04/21/24 10:00 Pulse Ox 99 04/21/24 10:00 O2 Del Method Room Air 04/21/24 10:00 O2 Flow Rate 21 04/20/24 23:12 04/20/24 04/21/24 04/21/24 22:59 06:59 14:59 Intake Total 119.583 / 119.583 Output Total 1950 / 1950 Balance -1830.417 / -1830.417 Weight last 48 hrs Weight 68.492 kg Weight 69.989 kg Weight 63.503 kg Physical Exam 2 Narrative: Awake alert Signs of dehydration present Nonfocal neuroexam Generalized fatigue and weakness Pleasant cooperative Nonfocal neuroexam Pleasant cooperative Hemodynamically stable Urinary Catheter Management: Jeffers: Cath Placed During This Visit: yes Reason for Continuing Indwelling Catheter: Accurate Measurement of Urinary Output in Critically Ill Patients Urinary Catheter Date of Insertion: 04/20/24 Urinary Catheter Time of Insertion: 22:30 Data 04/21/24 09:57 04/21/24 09:57 Micro: Microbiology 04/20/24 22:18 Gram Stain - Final Sputum - Expectorated Sputum 04/20/24 16:35 Blood Culture - Preliminary Blood SPECIMEN COLLECTED 04/20/24 16:30 Blood Culture - Preliminary Blood SPECIMEN COLLECTED A&P Assessment and plan (1) Essential hypertension: (2) Diabetes mellitus: Qualifiers: Diabetes mellitus type: type 2 Diabetes mellitus long term care social worker insulin use: without penitentiary use Diabetes mellitus complication status: without complication Qualified Code(s): E11.9 - Type 2 diabetes mellitus without complications (3) Vitamin B12 deficiency: (4) Vitamin D deficiency: (5) Hyponatremia: Plan SIADH Hypertonic saline has been discontinued Sodium 125 I have held tolvaptan to her pharmacy to get the process started for prior authorization and hopefully approval Discontinue Jeffers catheter Start diet regular with fluid restriction 1200 mL Hypertension: Continue losartan DNR/DNI May be able to transfer her to [facility] by tomorrow Attestations 2 Medical Necessity Statement*: Continue medical management continue medical management Diagnoses Essential hypertension I10 Type 2 diabetes mellitus without complication, without long-term current use of insulin E11.9 Diabetes mellitus type: type 2 Diabetes mellitus long term care social worker insulin use: without long term care social worker use Diabetes mellitus complication status: without complication Vitamin B12 deficiency E53.8 Vitamin D deficiency E55.9 Hyponatremia E87.1
[2024-04-21 15:28] LABS: Anion Gap 10.2 (5-19); Blood Urea Nitrogen 12 mg/dL (8-23); Calcium 8.5 mg/dL (8.5-10.5); Carbon Dioxide 25 mmol/L (22-29); Chloride 92 mmol/L (98-107); Glucose 139 mg/dL (65-115); Osmolality Calculated 258 mOsm/kg (285-295); Potassium 4.2 mmol/L (3.5-5.1); Sodium 123 mmol/L (136-145)
[2024-04-21] MEDS: pneumococcal (23 valent) SDV 0.5 mL IM (17:26)
[2024-04-21 18:48] LABS: Anion Gap 14.7 (5-19); Blood Urea Nitrogen 13 mg/dL (8-23); Calcium 8.3 mg/dL (8.5-10.5); Carbon Dioxide 25 mmol/L (22-29); Chloride 93 mmol/L (98-107); Glucose 130 mg/dL (65-115); Osmolality Calculated 268 mOsm/kg (285-295); Potassium 4.7 mmol/L (3.5-5.1); Sodium 128 mmol/L (136-145)
[2024-04-21 23:08] LABS: Anion Gap 14.4 (5-19); Blood Urea Nitrogen 14 mg/dL (8-23); Calcium 8.7 mg/dL (8.5-10.5); Carbon Dioxide 25 mmol/L (22-29); Chloride 90 mmol/L (98-107); Glucose 106 mg/dL (65-115); Osmolality Calculated 261 mOsm/kg (285-295); Potassium 4.4 mmol/L (3.5-5.1); Sodium 125 mmol/L (136-145)
[2024-04-22] VITALS (71 sets, daily range): BP systolic 131–174; BP diastolic 55–97; PULSE 64–128; RESP 14–31; TEMP 36.6–37.2; O2SAT 81–100; BMI 25.3
[2024-04-22 04:18] LABS: Basophils # 0.1 10^3/uL (0.0-0.1); Basophils % 1.9 %; Eosinophils # 0.4 10^3/uL (0.0-0.8); Eosinophils % 4.8 %; Lymphocytes # 1.2 10^3/uL (0.8-4.8); Lymphocytes % 16.4 %; Mean Corpuscular HGB Conc 32.8 g/dL (30-55); Mean Corpuscular Hemoglobin 28.7 pg (27-33); Mean Corpuscular Volume 87.6 fl (85-98); Mean Platelet Volume 8.5 fL (7.4-10.4); Monocytes % 13.8 %; Neutrophils # 4.74 10^3/uL (1.8-7.7); Neutrophils % 62.6 %; Nucleated Red Blood Cells % 0 %; Platelet Count 285 10^3/cmm (157-399); Red Blood Count 3.31 10^6/uL (3.85-5.65); Red Cell Distribution Width 13.9 % (12.1-15.1); White Blood Count 7.56 10^3/uL (3.29-11.43)
[2024-04-22 04:41] LABS: Anion Gap 12.3 (5-19); Blood Urea Nitrogen 14 mg/dL (8-23); Calcium 8.5 mg/dL (8.5-10.5); Carbon Dioxide 27 mmol/L (22-29); Chloride 92 mmol/L (98-107); Glucose 99 mg/dL (65-115); Osmolality Calculated 265 mOsm/kg (285-295); Potassium 4.3 mmol/L (3.5-5.1); Sodium 127 mmol/L (136-145)
--- NOTE | 2024-04-22 06:15 | PM.PN ---
Subjective Subjective: no new c/o Medications: Reviewed: Yes Vitals/I&O/Wt Last Vital Signs Temp 98.9 F 04/22/24 04:00 Pulse 68 04/22/24 03:45 Resp 18 04/22/24 03:45 BP 148/58 04/22/24 04:00 Pulse Ox 97 04/22/24 03:45 O2 Del Method Room Air 04/21/24 18:00 O2 Flow Rate 21 04/20/24 23:12 04/21/24 04/21/24 04/22/24 14:59 22:59 06:59 Intake Total 240 / 240 120 / 360 Output Total 1100 / 1100 500 / 1600 450 / 2050 Balance -860 / -860 -380 / -1240 -450 / -1690 Weight last 48 hrs Weight 67.041 kg Weight 68.492 kg Weight 69.989 kg Weight 63.503 kg Physical Exam Narrative: awake , alert HEENT S1S2 RRR per report Lungs clear per report No edema Urinary Catheter Management: Jeffers: Cath Placed During This Visit: yes, but has since been removed by the nurse Reason for Continuing Indwelling Catheter: Decision to DC Catheter Urinary Catheter Date of Insertion: 04/20/24 Urinary Catheter Time of Insertion: 22:30 Date Urinary Catheter Removed: 04/21/24 Time Urinary Catheter Discontinued: 15:04 Data 04/22/24 09:57 04/22/24 03:48 Micro: Microbiology 04/20/24 16:35 Blood Culture - Preliminary Blood NEGATIVE TO DATE 04/20/24 16:30 Blood Culture - Preliminary Blood NEGATIVE TO DATE 04/20/24 22:18 Gram Stain - Final Sputum - Expectorated Sputum A&P Assessment and plan (1) Hyponatremia: 1.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 Pt presented with Na 113,, and has severe nausea vomiting. s/p 3% saline , Na improved to 127 placed on fluid restriction add tolvaptan 2. Severe nausea vomiting: Likely from hyponatremia,improved 3. Hypertension, resume home medications Attestations Medical Necessity Statement*: per [facility] team Coding Level of Care Code Acute Code for [facility] Diagnoses Hyponatremia E87.1
[2024-04-22] MEDS: aspirin 81 mg EC Tablet PO (08:12)
[2024-04-22] MEDS: losartan 50 mg Tablet PO (08:12)
[2024-04-22] MEDS: pantoprazole 40 mg SDV IVP (08:12)
[2024-04-22 10:17] LABS: Basophils # 0.1 10^3/uL (0.0-0.1); Basophils % 1.6 %; Eosinophils # 0.2 10^3/uL (0.0-0.8); Eosinophils % 2.7 %; Hematocrit 33.6 % (36-47); Lymphocytes # 0.8 10^3/uL (0.8-4.8); Lymphocytes % 9.6 %; Mean Corpuscular HGB Conc 32.4 g/dL (30-55); Mean Corpuscular Hemoglobin 28.5 pg (27-33); Mean Platelet Volume 8.2 fL (7.4-10.4); Monocytes # 0.9 10^3/uL (0.2-0.9); Monocytes % 10.1 %; Neutrophils # 6.51 10^3/uL (1.8-7.7); Neutrophils % 75.4 %; Nucleated Red Blood Cells % 0 %; Platelet Count 335 10^3/cmm (157-399); Red Blood Count 3.82 10^6/uL (3.85-5.65); White Blood Count 8.63 10^3/uL (3.29-11.43)
--- NOTE | 2024-04-22 12:20 | PM.PN ---
Subjective Subjective: Patient is doing well very well Sodium has improved Transfer out of ICU to [facility] Getting tolvaptan with fluid restriction Trying to get prior authorization to for outpatient follow-up and removal Hemodynamically stable Patient is still hypertensive Vitals/I&O/Wt Last Vital Signs Temp 98.2 F 04/22/24 08:00 Pulse 72 04/22/24 11:45 Resp 24 H 04/22/24 11:45 BP 172/73 04/22/24 12:00 Pulse Ox 98 04/22/24 11:45 O2 Del Method Room Air 04/22/24 08:17 O2 Flow Rate 21 04/20/24 23:12 04/21/24 04/22/24 04/22/24 22:59 06:59 14:59 Intake Total 120 / 360 1260 / 1260 Output Total 500 / 1600 450 / 2050 550 / 550 Balance -380 / -1240 -450 / -1690 710 / 710 Weight last 48 hrs Weight 67.041 kg Weight 68.492 kg Weight 69.989 kg Weight 63.503 kg Physical Exam Narrative: Hemodynamically stable Hypertensive GCS 15 Nonfocal neuroexam Pupils are reactive to light Currently on room air Nonfocal neuroexam Pleasant cooperative Urinary Catheter Management: Jeffers: Cath Placed During This Visit: yes, but has since been removed by the nurse Reason for Continuing Indwelling Catheter: Decision to DC Catheter Urinary Catheter Date of Insertion: 04/20/24 Urinary Catheter Time of Insertion: 22:30 Date Urinary Catheter Removed: 04/21/24 Time Urinary Catheter Discontinued: 15:04 Data 04/22/24 09:57 04/22/24 03:48 Micro: Microbiology 04/20/24 22:18 Gram Stain - Final Sputum - Expectorated Sputum Sputum Culture - Preliminary 04/20/24 16:35 Blood Culture - Preliminary Blood NEGATIVE TO DATE 04/20/24 16:30 Blood Culture - Preliminary Blood NEGATIVE TO DATE A&P Assessment and plan (1) Vitamin B12 deficiency: (2) Diabetes mellitus: Qualifiers: Diabetes mellitus type: type 2 Diabetes mellitus retirement insulin use: without terminal carman use Diabetes mellitus complication status: without complication Qualified Code(s): E11.9 - Type 2 diabetes mellitus without complications (3) Essential hypertension: (4) Gastroesophageal reflux: Qualifiers: Esophagitis presence: without esophagitis Qualified Code(s): K21.9 - Gastro-esophageal reflux disease without esophagitis (5) Stage 3a chronic kidney disease (CKD): (6) Hyponatremia: Plan Today my plan is to continue to hold obtain along fluid section Transfer out of ICU to [facility] No focal deficits Hemodynamically stable other than hypertension Add amlodipine 10 mg to losartan 50 mg Continue Protonix however I will switch to oral regimen Will need to optimize antihypertensive regimen DNR/DNI Currently on regular diet with 1200 mill fluid restriction Once she gets tolvaptan approved and her sodium is at 130 we might be able to discharge her from the hospital Appreciate nephro recommendations Will request physical therapy Attestations Medical Necessity Statement*: Transfer out of ICU to [facility] Diagnoses Vitamin B12 deficiency E53.8 Type 2 diabetes mellitus without complication, without long-term current use of insulin E11.9 Diabetes mellitus type: type 2 Diabetes mellitus retirement insulin use: without terminal carman use Diabetes mellitus complication status: without complication Essential hypertension I10 Gastroesophageal reflux disease without esophagitis K21.9 Esophagitis presence: without esophagitis Stage 3a chronic kidney disease (CKD) N18.31 Hyponatremia E87.1
[2024-04-22] MEDS: amlodipine 10 mg Tablet PO (12:47)
--- NOTE | 2024-04-22 16:55 | PC.NURSE ---
Transfer Note Patient transferred to [facility] room 271 from ICU via wheelchair. Handoff report given to IDA Sim. Patient oriented to environment and equipment. Covering service notified. Orders reviewed and will continue to monitor. Patient daughter present upon transfer, all questions answered at this time. Upon transfer patient is alert/oriented x4 on room air, no wounds or skin issues noted at this time. All patient belongings transferred with patient to [facility] and placed at bedside.
[2024-04-22 17:09] LABS: Alanine Aminotransferase 12 U/L (0-33); Alkaline Phosphatase 102 U/L (35-105); Aspartate Amino Transferase 22 U/L (0-32); Blood Urea Nitrogen 13 mg/dL (8-23); Calcium 8.8 mg/dL (8.5-10.5); Carbon Dioxide 22 mmol/L (22-29); Chloride 85 mmol/L (98-107); Globulin 3.5 g/dL (1.3-4.6); Glucose 133 mg/dL (65-115); Osmolality Calculated 252 mOsm/kg (285-295); Sodium 120 mmol/L (136-145); Total Bilirubin 0.4 mg/dL (0.15-1.2); Total Protein 7.5 g/dL (6.6-8.7)
[2024-04-22] MEDS: metoprolol tartrate 25 mg Tablet 12.5 MG PO (20:57)
[2024-04-22 23:28] LABS: Sodium 118 mmol/L (136-145)
[2024-04-23] VITALS (56 sets, daily range): BP systolic 125–181; BP diastolic 61–118; PULSE 65–109; RESP 13–28; TEMP 36.6–37.7; O2SAT 90–99
--- NOTE | 2024-04-23 00:24 | PC.NURSE ---
Addendum entered by ANAYELI Edwards 04/23/24 02:58: Correction, patient transferred at 0020 Addendum entered by ANAYELI Edwards 04/23/24 02:43: pts sodium level was 120 when this nurse arrived on shift, down from 127. contacted and notified him of the sodium level as well as the family concerns with it fluctuating as well as not being able to start home dosage of tolvaptam. ordered repeat sodium at 2300. was notified of 2300 sodium level coming back as 118 and ICU transfer orders were verbalized and obtained for hypertonic saline administration. Original Note: Report called to Jann RN in ICU and pt was transferred at 1220. patient was stable on time of transfer. Family updated.
[2024-04-23] MEDS: sodium chloride 3% 500 ML 30 ML IV (02:58)
[2024-04-23 05:07] LABS: Basophils # 0.1 10^3/uL (0.0-0.1); Basophils % 1.5 %; Eosinophils # 0.3 10^3/uL (0.0-0.8); Eosinophils % 4.2 %; Hematocrit 28.2 % (36-47); Lymphocytes % 12.9 %; Mean Corpuscular HGB Conc 33.7 g/dL (30-55); Mean Corpuscular Hemoglobin 29.1 pg (27-33); Mean Corpuscular Volume 86.2 fl (85-98); Mean Platelet Volume 8.4 fL (7.4-10.4); Monocytes % 13.2 %; Neutrophils # 4.97 10^3/uL (1.8-7.7); Neutrophils % 67.7 %; Nucleated Red Blood Cells % 0 %; Platelet Count 264 10^3/cmm (157-399); Red Blood Count 3.27 10^6/uL (3.85-5.65); Red Cell Distribution Width 13.5 % (12.1-15.1); White Blood Count 7.35 10^3/uL (3.29-11.43)
--- NOTE | 2024-04-23 05:23 | P.PN_ITS ---
Subjective 2 Subjective: pt transferred to icu as Na dropped again Medications: Reviewed: Yes Vitals/I&O/Wt Last Vital Signs Temp 98.8 F 04/23/24 04:00 Pulse 90 04/23/24 04:00 Resp 17 04/23/24 04:00 BP 145/64 04/23/24 04:00 Pulse Ox 90 04/23/24 04:00 O2 Del Method Room Air 04/22/24 20:00 O2 Flow Rate 21 04/20/24 23:12 04/22/24 04/22/24 04/23/24 14:59 22:59 06:59 Intake Total 1500 / 1500 240 / 1740 Output Total 550 / 550 Balance 950 / 950 240 / 1190 Weight last 48 hrs Weight 67.041 kg Weight 68.492 kg Physical Exam 2 Narrative: awake , alert HEENT S1S2 RRR per report Lungs clear per report No edema Urinary Catheter Management: Jeffers: Cath Placed During This Visit: yes, but has since been removed by the nurse Reason for Continuing Indwelling Catheter: Decision to DC Catheter Urinary Catheter Date of Insertion: 04/20/24 Urinary Catheter Time of Insertion: 22:30 Date Urinary Catheter Removed: 04/21/24 Time Urinary Catheter Discontinued: 15:04 Data 04/23/24 04:48 04/23/24 04:48 Micro: Microbiology 04/20/24 22:18 Gram Stain - Final Sputum - Expectorated Sputum Sputum Culture - Preliminary A&P Assessment and plan (1) Hyponatremia: 1.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 Pt presented with Na 113,, and has severe nausea vomiting. s/p 3% saline , Na improved to 127-- but pt was placed back on 3% saline last night due to Na drop to 118, Na now 123 - will stop 3% saline and continue fluid restriction , add salt tabs untill Tolvaptan can be started add tolvaptan 2. Severe nausea vomiting: Likely from hyponatremia,improved 3. Hypertension, resume home medications Attestations 2 Medical Necessity Statement*: per [place] Coding Level of Care Code Acute Code for [facility] Fwd Diagnoses Hyponatremia E87.1
[2024-04-23 05:26] LABS: Blood Urea Nitrogen 9 mg/dL (8-23); Calcium 8.4 mg/dL (8.5-10.5); Carbon Dioxide 25 mmol/L (22-29); Chloride 89 mmol/L (98-107); Glucose 105 mg/dL (65-115); Osmolality Calculated 255 mOsm/kg (285-295); Sodium 123 mmol/L (136-145)
--- NOTE | 2024-04-23 05:36 | PC.NURSE ---
Spoke with Dr. Hoffman regarding sodium, new orders to stop 3% saline when sodium level greater than 120. Morning lab results received and sodium level 123, and fluids stopped at this time.
[2024-04-23 08:48] LABS: Osmolality Urine 309 mOsm/kg (50-1200)
[2024-04-23] MEDS: aspirin 81 mg EC Tablet PO (09:09)
[2024-04-23] MEDS: pantoprazole 40 mg SDV IVP (09:09)
[2024-04-23] MEDS: metoprolol tartrate 25 mg Tablet 12.5 MG PO ×2 (09:09→20:03)
[2024-04-23] MEDS: losartan 50 mg Tablet PO (09:09)
[2024-04-23] MEDS: sodium chloride 1 gm Tablet PO ×2 (09:10→20:03)
[2024-04-23] MEDS: amlodipine 10 mg Tablet PO (09:10)
--- NOTE | 2024-04-23 11:33 | P.PN_ITS ---
Subjective 2 Subjective: Sodium was low yesterday down to 118 she had to be transferred back to ICU, this morning her sodium has improved after hypertonic saline which has been discontinued Prior authorization has been initiated to get tolvaptan at the time of discharge We have also sent the paperwork to get it approved inpatient Vitals/I&O/Wt Last Vital Signs Temp 97.8 F 04/23/24 07:24 Pulse 79 04/23/24 09:00 Resp 23 H 04/23/24 09:00 BP 161/70 04/23/24 09:09 Pulse Ox 97 04/23/24 09:00 O2 Del Method Room Air 04/23/24 09:00 O2 Flow Rate 21 04/20/24 23:12 04/22/24 04/23/24 04/23/24 22:59 06:59 14:59 Intake Total 240 / 1740 260 / 260 Output Total 300 / 300 Balance 240 / 1190 -40 / -40 Weight last 48 hrs Weight 67.993 kg Weight 67.041 kg Physical Exam 2 Narrative: Pleasant cooperative Fatigued and tired Wanted to use bedside commode No new focal deficit S1, S2 Hemodynamic stable Mild signs of dehydration Abdomen soft Urinary Catheter Management: Jeffers: Cath Placed During This Visit: yes, but has since been removed by the nurse Reason for Continuing Indwelling Catheter: Decision to DC Catheter Urinary Catheter Date of Insertion: 04/20/24 Urinary Catheter Time of Insertion: 22:30 Date Urinary Catheter Removed: 04/21/24 Time Urinary Catheter Discontinued: 15:04 Data 04/23/24 04:48 04/23/24 04:48 Micro: Microbiology 04/20/24 22:18 Gram Stain - Final Sputum - Expectorated Sputum Sputum Culture - Preliminary A&P Assessment and plan (1) Essential hypertension: (2) Diabetes mellitus: Qualifiers: Diabetes mellitus type: type 2 Diabetes mellitus nursing home insulin use: without truck terminal manager use Diabetes mellitus complication status: without complication Qualified Code(s): E11.9 - Type 2 diabetes mellitus without complications (3) Vitamin B12 deficiency: (4) Hyponatremia: (5) Gastroesophageal reflux: Qualifiers: Esophagitis presence: without esophagitis Qualified Code(s): K21.9 - Gastro-esophageal reflux disease without esophagitis (6) Stage 3a chronic kidney disease (CKD): Plan Will monitor in ICU for 1 more day Sodium is better Currently she is on salt tablets We have sent documentation to get inpatient tolvaptan approval and also outpatient prior authorization process has been started Recheck sodium around 5 PM today Continue salt tablets Appreciate nephro recommendations Patient is still hypertensive She is on losartan 50 mg daily and amlodipine Metoprolol is also on board Patient is needing assist to get out of bed and use bedside commode Also requested PT yesterday DNR/DNI Will get in touch with the family today to answer the questions regarding tolvaptan approval Attestations 2 Medical Necessity Statement*: Continue medical management Diagnoses Essential hypertension I10 Type 2 diabetes mellitus without complication, without long-term current use of insulin E11.9 Diabetes mellitus type: type 2 Diabetes mellitus truck terminal manager insulin use: without nursing home use Diabetes mellitus complication status: without complication Vitamin B12 deficiency E53.8 Hyponatremia E87.1 Gastroesophageal reflux disease without esophagitis K21.9 Esophagitis presence: without esophagitis Stage 3a chronic kidney disease (CKD) N18.31
--- NOTE | 2024-04-23 11:39 | PC.SOCIAL ---
IMM Update pg 2 of IMM updated and reviewed w/ patient. Copy provided and copy dated, initialed and placed in chart.
[2024-04-23 12:24] LABS: Anion Gap 13.1 (5-19); Blood Urea Nitrogen 9 mg/dL (8-23); Calcium 8.6 mg/dL (8.5-10.5); Carbon Dioxide 25 mmol/L (22-29); Chloride 88 mmol/L (98-107); Glucose 119 mg/dL (65-115); Osmolality Calculated 254 mOsm/kg (285-295); Potassium 4.1 mmol/L (3.5-5.1); Sodium 122 mmol/L (136-145)
--- NOTE | 2024-04-23 17:01 | PC.NURSE ---
Fluid restriction Patient's daughter giving patient water and other drinks that are outside of patient's fluid restriction. Patient and daughter educated multiple times on the need to maintain 1,000 ml fluid restriction due to sodium levels.
[2024-04-23] MEDS: benzonatate 100 mg Capsule PO (17:45)
[2024-04-23 18:04] LABS: Sodium 124 mmol/L (136-145)
[2024-04-24] VITALS (95 sets, daily range): BP systolic 81–191; BP diastolic 43–159; PULSE 62–108; RESP 7–36; TEMP 36.8–37.1; O2SAT 83–99; BMI 25.7
[2024-04-24 05:29] LABS: Basophils # 0.1 10^3/uL (0.0-0.1); Basophils % 1.4 %; Eosinophils # 0.4 10^3/uL (0.0-0.8); Eosinophils % 4.8 %; Hematocrit 28.5 % (36-47); Lymphocytes # 1.1 10^3/uL (0.8-4.8); Lymphocytes % 14.7 %; Mean Corpuscular Hemoglobin 28.3 pg (27-33); Mean Corpuscular Volume 85.8 fl (85-98); Mean Platelet Volume 8.9 fL (7.4-10.4); Monocytes % 13.5 %; Neutrophils # 5.02 10^3/uL (1.8-7.7); Neutrophils % 65.1 %; Nucleated Red Blood Cells % 0 %; Platelet Count 276 10^3/cmm (157-399); Red Blood Count 3.32 10^6/uL (3.85-5.65); Red Cell Distribution Width 13.5 % (12.1-15.1); White Blood Count 7.71 10^3/uL (3.29-11.43)
[2024-04-24 05:50] LABS: Anion Gap 12.9 (5-19); Blood Urea Nitrogen 10 mg/dL (8-23); Calcium 8.5 mg/dL (8.5-10.5); Carbon Dioxide 24 mmol/L (22-29); Chloride 93 mmol/L (98-107); Glucose 98 mg/dL (65-115); Osmolality Calculated 261 mOsm/kg (285-295); Potassium 3.9 mmol/L (3.5-5.1); Sodium 126 mmol/L (136-145)
[2024-04-24] MEDS: losartan 50 mg Tablet PO (08:41)
[2024-04-24] MEDS: amlodipine 10 mg Tablet PO (08:41)
[2024-04-24] MEDS: aspirin 81 mg EC Tablet PO (08:41)
[2024-04-24] MEDS: pantoprazole 40 mg SDV IVP (08:41)
[2024-04-24] MEDS: metoprolol tartrate 25 mg Tablet 12.5 MG PO ×2 (08:42→20:15)
[2024-04-24] MEDS: sodium chloride 1 gm Tablet PO (08:42)
--- NOTE | 2024-04-24 09:41 | P.PN_ITS ---
Subjective 2 Subjective: no new complaints Medications: Reviewed: Yes Vitals/I&O/Wt Last Vital Signs Temp 98.8 F 04/24/24 07:54 Pulse 77 04/24/24 08:44 Resp 16 04/24/24 08:44 BP 136/62 04/24/24 08:41 Pulse Ox 95 04/24/24 08:44 O2 Del Method Room Air 04/24/24 08:44 O2 Flow Rate 21 04/20/24 23:12 04/23/24 04/24/24 04/24/24 22:59 06:59 14:59 Intake Total 240 / 740 120 / 860 Output Total 750 / 1200 300 / 300 Balance -510 / -460 120 / -340 -300 / -300 Weight last 48 hrs Weight 67.982 kg Weight 67.993 kg Physical Exam 2 Narrative: awake , alert HEENT S1S2 RRR per report Lungs clear per report No edema Urinary Catheter Management: Jeffers: Cath Placed During This Visit: yes, but has since been removed by the nurse Reason for Continuing Indwelling Catheter: Decision to DC Catheter Urinary Catheter Date of Insertion: 04/20/24 Urinary Catheter Time of Insertion: 22:30 Date Urinary Catheter Removed: 04/21/24 Time Urinary Catheter Discontinued: 15:04 Data 04/24/24 04:20 04/24/24 16:04 Micro: Microbiology 04/20/24 22:18 Gram Stain - Final Sputum - Expectorated Sputum Sputum Culture - Final A&P Assessment and plan (1) Hyponatremia: 1.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 Pt presented with Na 113,, and has severe nausea vomiting. s/p 3% saline , Na 126 , added salt tabs untill Tolvaptan can be started , continue fluid restriction 2. Severe nausea vomiting: Likely from hyponatremia,improved 3. Hypertension, resume home medications Attestations 2 Medical Necessity Statement*: per [place] Coding Level of Care Code Acute Code for [facility] Fwd Diagnoses Hyponatremia E87.1
--- NOTE | 2024-04-24 11:40 | XR_ITS ---
WS: [id number] Exam: XR chest 1V portable [id number] Date/Time of Exam: 04/24/2024 11:40 AM Reason For Exam: aspirating Comparison 04/20/2024. The lungs are fully expanded. Probable small LEFT basal pleural effusion. Right-sided PICC line ends in the lower one third of the SVC. Cardiomediastinal silhouette is unremarkable for technique. Bony s tructures are intact. Degenerative change of both shoulders. XR/XR chest 1V portable [id number] IMPRESSION: 1. Small LEFT basal pleural effusion. No acute process noted. 2. Right-sided PICC line appearing to be in satisfactory location.
--- NOTE | 2024-04-24 12:10 | PM.PN ---
Subjective Subjective: Possible aspiration, x-ray noted left lower lobe infiltrate No fever No significant leukocytosis Aspiration pneumonitis? Patient is 52 lethargic but not showing any signs of distress or no new neurological deficit noted during evaluation Vitals/I&O/Wt Last Vital Signs Temp 98.8 F 04/24/24 07:54 Pulse 77 04/24/24 08:44 Resp 16 04/24/24 08:44 BP 136/62 04/24/24 08:41 Pulse Ox 95 04/24/24 08:44 O2 Del Method Room Air 04/24/24 08:44 O2 Flow Rate 21 04/20/24 23:12 04/23/24 04/24/24 04/24/24 22:59 06:59 14:59 Intake Total 240 / 740 120 / 860 Output Total 750 / 1200 300 / 300 Balance -510 / -460 120 / -340 -300 / -300 Weight last 48 hrs Weight 67.982 kg Weight 67.993 kg Physical Exam Narrative: Patient is awake and alert No new focal deficit Pupils are reactive to light Pleasant cooperative Euvolemic Abdomen soft Hemodynamically stable S1, S2 Urinary Catheter Management: Jeffers: Cath Placed During This Visit: yes, but has since been removed by the nurse Reason for Continuing Indwelling Catheter: Decision to DC Catheter Urinary Catheter Date of Insertion: 04/20/24 Urinary Catheter Time of Insertion: 22:30 Date Urinary Catheter Removed: 04/21/24 Time Urinary Catheter Discontinued: 15:04 Data 04/24/24 04:20 04/24/24 04:20 Micro: Microbiology 04/20/24 22:18 Gram Stain - Final Sputum - Expectorated Sputum Sputum Culture - Final A&P Assessment and plan (1) Hypertension: (2) Diabetes mellitus: Qualifiers: Diabetes mellitus type: type 2 Diabetes mellitus intermediate manager insulin use: without intermediate manager use Diabetes mellitus complication status: without complication Qualified Code(s): E11.9 - Type 2 diabetes mellitus without complications (3) Vitamin B12 deficiency: (4) Vitamin D deficiency: (5) Hyponatremia: (6) Gastroesophageal reflux: Qualifiers: Esophagitis presence: without esophagitis Qualified Code(s): K21.9 - Gastro-esophageal reflux disease without esophagitis (7) Acute on chronic anemia: Plan Aspiration pneumonitis Lower lobe infiltrate Hold off on antibiotics Currently movement Afebrile No leukocytosis SIADH related hyponatremia We are giving first dose of tolvaptan today 1215PM Would like to monitor patient 1 more day Disposition: Likely home on Sunday Discontinue salt tablets No neurological changes noted Patient has been working with PT to some extent Attestations Medical Necessity Statement*: Likely discharge by tomorrow Diagnoses Hypertension I10 Type 2 diabetes mellitus without complication, without long-term current use of insulin E11.9 Diabetes mellitus type: type 2 Diabetes mellitus intermediate manager insulin use: without intermediate manager use Diabetes mellitus complication status: without complication Vitamin B12 deficiency E53.8 Vitamin D deficiency E55.9 Hyponatremia E87.1 Gastroesophageal reflux disease without esophagitis K21.9 Esophagitis presence: without esophagitis Acute on chronic anemia D64.9
[2024-04-24 17:08] LABS: Anion Gap 13.7 (5-19); Blood Urea Nitrogen 14 mg/dL (8-23); Calcium 8.5 mg/dL (8.5-10.5); Carbon Dioxide 23 mmol/L (22-29); Chloride 92 mmol/L (98-107); Glucose 114 mg/dL (65-115); Osmolality Calculated 261 mOsm/kg (285-295); Potassium 3.7 mmol/L (3.5-5.1); Sodium 125 mmol/L (136-145)
[2024-04-25] VITALS (34 sets, daily range): BP systolic 111–164; BP diastolic 51–96; PULSE 67–108; RESP 0–29; TEMP 37.1; O2SAT 94–98; BMI 25.1
[2024-04-25 05:12] LABS: Basophils # 0.1 10^3/uL (0.0-0.1); Basophils % 1.9 %; Eosinophils # 0.3 10^3/uL (0.0-0.8); Eosinophils % 5.4 %; Lymphocytes # 1.1 10^3/uL (0.8-4.8); Lymphocytes % 19.3 %; Mean Corpuscular HGB Conc 33.4 g/dL (30-55); Mean Corpuscular Hemoglobin 28.9 pg (27-33); Mean Corpuscular Volume 86.3 fl (85-98); Mean Platelet Volume 8.5 fL (7.4-10.4); Monocytes # 0.9 10^3/uL (0.2-0.9); Monocytes % 15.1 %; Neutrophils # 3.31 10^3/uL (1.8-7.7); Neutrophils % 57.9 %; Nucleated Red Blood Cells % 0 %; Platelet Count 284 10^3/cmm (157-399); Red Blood Count 3.36 10^6/uL (3.85-5.65); Red Cell Distribution Width 13.7 % (12.1-15.1); White Blood Count 5.71 10^3/uL (3.29-11.43)
[2024-04-25 05:40] LABS: Anion Gap 15.5 (5-19); Blood Urea Nitrogen 15 mg/dL (8-23); Calcium 8.7 mg/dL (8.5-10.5); Carbon Dioxide 24 mmol/L (22-29); Chloride 96 mmol/L (98-107); Glucose 132 mg/dL (65-115); Osmolality Calculated 277 mOsm/kg (285-295); Potassium 3.5 mmol/L (3.5-5.1); Sodium 132 mmol/L (136-145)
[2024-04-25] MEDS: metoprolol tartrate 25 mg Tablet 12.5 MG PO (08:23)
[2024-04-25] MEDS: amlodipine 10 mg Tablet PO (08:23)
[2024-04-25] MEDS: losartan 50 mg Tablet PO (08:23)
[2024-04-25] MEDS: pantoprazole 40 mg SDV IVP (08:26)
[2024-04-25] MEDS: aspirin 81 mg EC Tablet PO (08:26)
--- NOTE | 2024-04-25 10:04 | P.DS_ITS ---
Discharge Providers Date of Admission: 04/20/24 17:36 Date of Discharge: April 25, 2024 Attending Provider at Admission: Kandis Gates MD Attending Provider at Discharge: Quincy Rivas MD Primary Care Provider: Bryan Calixto Diagnoses at Discharge Discharge Diagnosis (1) Hyponatremia: Status: Acute Permanent problem details: chronic. 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, was on tolvaptan however secondary to switching insurance she lost prior authorization for tolvaptan, patient was admitted to the ICU for management evaluation of acute on chronic hyponatremia she was put on hypertonic saline, nephrology was consulted, hypertonic saline was used intermittently whenever her sodium dropped below 120 with the help of case management we were able to get tolvaptan approved to be used inpatient, prescription were sent to [facility] pharmacy, as per the report [facility] pharmacy is planning to deliver tolvaptan on day of discharge at patient's home address. Patient has been given a box of 10 doses of tolvaptan from our pharmacy. We have counseled patient not to take salt tablets. Patient seems to have aspiration to regular food consistency will request modified barium swallow on outpatient basis. Speech therapy was done in the hospital, her diet was changed to level 5 minced and moist level No new focal deficits, patient has been working with PT, able to get up and walk to the bathroom on her own Pupils are reactive to light Able to move her extremities Physical Exam Narrative: Pleasant cooperative Laying supine Eating breakfast No new focal deficit Patient has been working with PT Urinary Catheter Management: Jeffers: Cath Placed During This Visit: yes, but has since been removed by the nurse Reason for Continuing Indwelling Catheter: Decision to DC Catheter Urinary Catheter Date of Insertion: 04/20/24 Urinary Catheter Time of Insertion: 22:30 Date Urinary Catheter Removed: 04/21/24 Time Urinary Catheter Discontinued: 15:04 Discharge Data Studies Completed and Pending Completed Studies During Hospitalization Category Date Time Status CT abdomen pelvis w con* [id number] Stat Cat Scan 04/20/24 17:[address] head wo con* [id number] Stat Cat Scan 04/20/24 18:32 Completed CXRP [XR chest 1V portable [id number]] Routine Exams 04/20/24 19:44 Completed CXRP [XR chest 1V portable [id number]] Routine Exams 04/24/24 11:40 Completed XR KUB [id number] Stat Exams 04/20/24 15:54 Completed XR chest 1V portable [id number] Stat Exams 04/20/24 15:44 Completed Pending at discharge Category Date Time Status Blood Culture Stat Lab 04/20/24 16:35 Results Radiology Impressions KUB X-Ray 04/20/24 15:54 IMPRESSION: No plain film evidence of acute intra-abdominal or pelvic process. Abdomen/Pelvis CT 04/20/24 17:26 IMPRESSION: 1. No acute intra-abdominal or pelvic process. 2. Other nonemergent findings above. Head CT 04/20/24 18:32 IMPRESSION: 1. No acute intracranial pathology. 2. Senescent changes. Chest X-Ray 04/24/24 11:40 IMPRESSION: 1. Small LEFT basal pleural effusion. No acute process noted. 2. Right-sided PICC line appearing to be in satisfactory location. Laboratory Results WBC 5.71 10^3/uL (3.29-11.43) 04/25/24 04:47 RBC 3.36 10^6/uL (3.85-5.65) L 04/25/24 04:47 Hgb 9.70 g/dL (11.27-16.99) L 04/25/24 04:47 Hct 29.0 % (36-47) L 04/25/24 04:47 MCV 86.3 fl (85-98) 04/25/24 04:47 MCH 28.9 pg (27-33) 04/25/24 04:47 MCHC 33.4 g/dL (30-55) 04/25/24 04:47 RDW 13.7 % (12.1-15.1) 04/25/24 04:47 Plt Count 284 10^3/cmm (157-399) 04/25/24 04:47 MPV 8.5 fL (7.4-10.4) 04/25/24 04:47 Neut % (Auto) 57.9 % 04/25/24 04:47 Lymph % (Auto) 19.3 % 04/25/24 04:47 Pershing % (Auto) 15.1 % 04/25/24 04:47 Eos % (Auto) 5.4 % 04/25/24 04:47 Baso % (Auto) 1.9 % 04/25/24 04:47 Neut # (Auto) 3.31 10^3/uL (1.8-7.7) 04/25/24 04:47 Lymph # (Auto) 1.1 10^3/uL (0.8-4.8) 04/25/24 04:47 Pershing # (Auto) 0.9 10^3/uL (0.2-0.9) 04/25/24 04:47 Eos # (Auto) 0.3 10^3/uL (0.0-0.8) 04/25/24 04:47 Baso # (Auto) 0.1 10^3/uL (0.0-0.1) 04/25/24 04:47 Nucleated RBC % (auto) 0 % 04/25/24 04:47 Nucleated RBCs # 0.0 /100WBC 04/25/24 04:47 PT 14.20 SECONDS (12.1-14.9) 04/21/24 04:58 INR 1.07 (0.8-1.2) 04/21/24 04:58 Sodium 132 mmol/L (136-145) L 04/25/24 04:47 Potassium 3.5 mmol/L (3.5-5.1) 04/25/24 04:47 Chloride 96 mmol/L (98-107) L 04/25/24 04:47 Carbon Dioxide 24 mmol/L (22-29) 04/25/24 04:47 Anion Gap 15.5 (5-19) 04/25/24 04:47 BUN 15 mg/dL (8-23) 04/25/24 04:47 Creatinine 0.8 mg/dL (0.5-0.9) 04/25/24 04:47 GFR Calculation Not Reportable 04/25/24 04:47 Glucose 132 mg/dL (65-115) H 04/25/24 04:47 Calculated Osmolality 277 mOsm/kg (285-295) L 04/25/24 04:47 Lactic Acid 1.4 mmol/L (0.5-2.2) 04/20/24 19:17 Calcium 8.7 mg/dL (8.5-10.5) 04/25/24 04:47 Magnesium 1.6 mg/dL (1.7-2.3) L 04/21/24 04:58 Total Bilirubin 0.4 mg/dL (0.15-1.2) 04/22/24 16:45 AST 22 U/L (0-32) 04/22/24 16:45 ALT 12 U/L (0-33) 04/22/24 16:45 Alkaline Phosphatase 102 U/L (35-105) 04/22/24 16:45 Troponin T Baseline 16 ng/L (0-10) H 04/20/24 16:20 Troponin T 120 Minute 16.82 ng/L (0-10) H 04/20/24 18:29 Delta Troponin T 0.82 ABS# (0-10) 04/20/24 18:29 Troponin T Hi Sens 6Hr 23.97 ng/L (0-10) H 04/21/24 00:29 Troponin T Hi Sens 6Hr Delta 7.97 ng/L (0-12) 04/21/24 00:29 Total Protein 7.5 g/dL (6.6-8.7) 04/22/24 16:45 Albumin 4.0 g/dL (3.5-5.2) 04/22/24 16:45 Globulin 3.5 g/dL (1.3-4.6) 04/22/24 16:45 Lipase 36 U/L (13-60) 04/20/24 16:20 Urine Color Yellow (Yellow) 04/20/24 18:03 Urine Appearance Clear (CLEAR) 04/20/24 18:03 Urine pH 9 (5-7) H 04/20/24 18:03 Ur Specific [place] 1.015 (1.005-1.030) 04/20/24 18:03 Urine Protein Neg (Negative) 04/20/24 18:03 Urine Glucose (UA) Norm (Normal) 04/20/24 18:03 Urine Ketones Negative (Negative) 04/20/24 18:03 Urine Blood Neg (Negative) 04/20/24 18:03 Urine Nitrate Negative (Negative) 04/20/24 18:03 Urine Bilirubin Neg (Negative) 04/20/24 18:03 Prot Sulfosalicylic Acd Negative (Negative) 04/20/24 18:03 Urine Urobilinogen Neg mg/dL (Negative) 04/20/24 18:03 Ur Leukocyte Esterase Negative (Negative) 04/20/24 18:03 Urine Osmolality 309 mOsm/kg (50-1200) 04/20/24 22:33 Ur Random Sodium 71 mmol/L 04/20/24 22:33 Vitals Last Vital Signs Temp 98.7 F 04/25/24 04:00 Pulse 80 04/25/24 08:45 Resp 13 04/25/24 08:45 BP 126/96 04/25/24 08:45 Pulse Ox 95 04/25/24 07:15 O2 Del Method Room Air 04/25/24 04:00 O2 Flow Rate 21 04/20/24 23:12 Discharge Plan Discharge Patient Disposition: Home Condition: Stable Prescriptions: New tolvaptan 15 mg tablet 15 mg PO DAILY Qty: 90 12RF Tolvaptan 15 mg PO DAILY Qty: 90 12RF amlodipine 10 mg Tablet 10 mg PO DAILY Qty: 60 3RF Continued zinc acetate 25 mg (zinc) capsule 50 mg PO DAILY Rx Instructions: swallow whole; do not chew/break/dissolve/open Emergen-C Immune Plus 1,000 mg powder effervescent in packet 1,000 mg PO DAILY (DME) Custom Accomadative orthotic See Rx Instructions .ROUTE .MEDSUPPLY Qty: 1 0RF Rx Instructions: with rear foot post on left (DME) wheelchair See Rx Instructions .Route .MEDSUPPLY Qty: 1 0RF Rx Instructions: As directed (DME) ASO See Rx Instructions .Route .MEDSUPPLY Qty: 1 0RF Rx Instructions: As directed (DME) HWEITT balance braces See Rx Instructions .Route .MEDSUPPLY Qty: 1 0RF Rx Instructions: As directed custom made by the wilma ocampo aspirin 81 mg tablet,delayed release (DR/EC) 81 mg PO DAILY Hold Instructions: Resume on 02/05/24. Resume 81 mg aspirin after 30 days of 325 mg aspirin ferrous sulfate 325 mg (65 mg iron) tablet 325 mg PO DAILY ondansetron 4 mg tablet,disintegrating 4 mg PO Q8H PRN (Reason: nausea and vomiting) Qty: 30 0RF cholecalciferol (vitamin D3) 125 mcg (5,000 unit) capsule 125 mcg PO DAILY loratadine [Claritin] 10 mg tablet 10 mg PO DAILY tramadol 50 mg tablet 25 mg PO BID PRN (Reason: pain) Qty: 30 2RF (DME) SMO ankle brace See Rx Instructions .Route .MEDSUPPLY Qty: 1 0RF Rx Instructions: As directed pantoprazole 40 mg tablet,delayed release (DR/EC) 40 mg PO DAILY 90 Days Qty: 90 3RF losartan 50 mg tablet 50 mg PO DAILY 90 Days Qty: 90 3RF montelukast 10 mg tablet 10 mg PO DAILY Qty: 90 3RF albuterol sulfate 90 mcg/actuation HFA aerosol inhaler 2 inh inhalation Q6H PRN (Reason: shortness of breath or wheezing) Qty: 8.5 4RF furosemide 20 mg tablet 20 mg PO DAILY Qty: 30 0RF omega-3 fatty acids 1,000 mg Capsule 1,000 mg PO DAILY magnesium oxide 500 mg Tablet 500 mg PO DAILY vit [id number] fact-FA cmb #2 500-20-800 mcg-mg-mcg Tablet 2 tab PO DAILY folic acid 400 mcg Tablet 0.4 mg PO DAILY au-obi-qynhe-calcium carb-K1 400 mcg-500 mg calcium-20 mcg Tablet 1 tab PO QAM fluconazole 100 mg tablet 100 mg PO Q3D betamethasone valerate 0.1 % cream 1 applic topical DAILY PRN (Reason: Skin Irritation) mupirocin 2 % ointment 1 applic topical BID PRN (Reason: SKIN ITRITATION) gabapentin 100 mg capsule See Rx Instructions .ROUTE .COMPLEX Rx Instructions: Take 2 capsules in the AM, 2 capsule at noon and 1 capsule in the evening. Discontinued levofloxacin 500 mg tablet 500 mg PO DAILY Qty: 7 0RF Thermotabs 287-180-15 mg Tablet See Rx Instructions .ROUTE .COMPLEX Rx Instructions: TAKE 2 TABLETS BY MOUTH IN THE MORNING, 2 TABLETS AT LUNCH AND 1 TABLET IN THE EVENING. Discharge Orders: Discharge Order (Routine); Ordered 04/25/24 Ordered By: Quincy Rivas Other Ambulatory Orders: FL barium swallow modifd [id number] (Routine) Timeframe: 1 Week Facility: [facility] - Location: Radiology Ordered By: Quincy Rivas Referrals: Bryan Calixto NP [Primary Care Provider] - 05/05/24 10:40 am (any problems before this appointment please call office clinic or please go to the emergency room.) Discharge Diet: As Directed and Regular Patient Instructions: Amlodipine (By mouth) (Hypertenipine-2.5, Norvasc, Norliqva), Tolvaptan (By mouth) (Samsca, Jynarque), Hyponatremia (DC), Hypertension (DC), Aspiration Precautions (DC), Barium Swallow (DC), Opioid Safety Activity Restrictions/Additional Instructions: Fluid restriction 1 200 mL/day Take tolvaptan on daily basis Stop taking salt tablets/Thermotabs For blood pressure you will take losartan, amlodipine, if your blood pressure stays above 140/90 mmHg may have to increase the dose of losartan to 100 mg daily for modified barium swallow centralized scheduling [phone] ext [phone] please call if you do not hear from . Discharge Attestations Time Spent in Discharge Care*: greater than 30 min Quality Metrics Clinical Quality Measures [ No reported AMI, CVA or VTE this stay] Coding Level of Care Code Acute Code for Chg Fwd Diagnoses Hyponatremia E87.1
--- NOTE | 2024-04-25 10:22 | PC.SOCIAL ---
IMM Update pg 2 of IMM updated and reviewed w/ patient. Copy provided and copy dated, initialed and placed in chart.
--- NOTE | 2024-04-25 14:02 | PC.NURSE ---
Patient was sent home with daughter at 1345. 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
--- NOTE | 2024-04-25 19:41 | P.PN_ITS ---
Subjective 2 Subjective: no new c/o Medications: Reviewed: Yes Vitals/I&O/Wt Last Vital Signs Temp 98.7 F 04/25/24 04:00 Pulse 80 04/25/24 08:45 Resp 13 04/25/24 08:45 BP 126/96 04/25/24 08:45 Pulse Ox 95 04/25/24 07:15 O2 Del Method Room Air 04/25/24 04:00 O2 Flow Rate 21 04/20/24 23:12 04/25/24 04/25/24 04/25/24 06:59 14:59 22:59 Intake Total 240 / 480 25 Output Total 250 / 750 150 / 150 Balance -10 / -270 -125 / -125 Weight last 48 hrs Weight 66.395 kg Weight 67.982 kg Physical Exam 2 Narrative: awake , alert HEENT S1S2 RRR per report Lungs clear per report No edema Urinary Catheter Management: Jeffers: Cath Placed During This Visit: yes, but has since been removed by the nurse Reason for Continuing Indwelling Catheter: Decision to DC Catheter Urinary Catheter Date of Insertion: 04/20/24 Urinary Catheter Time of Insertion: 22:30 Date Urinary Catheter Removed: 04/21/24 Time Urinary Catheter Discontinued: 15:04 Data 04/25/24 04:47 04/25/24 04:47 Micro: Microbiology 04/20/24 16:35 Blood Culture - Final Blood NO GROWTH AFTER 5 DAYS 04/20/24 16:30 Blood Culture - Final Blood NO GROWTH AFTER 5 DAYS A&P Assessment and plan (1) Hyponatremia: 1.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 Pt presented with Na 113,, and has severe nausea vomiting. s/p 3% saline , Na 126 , added salt tabs untill Tolvaptan can be started , continue fluid restriction 2. Severe nausea vomiting: Likely from hyponatremia,improved 3. Hypertension, resume home medications Attestations 2 Medical Necessity Statement*: per [place] Coding Level of Care Code Acute Code for Chg Fwd Diagnoses Hyponatremia E87.1
== END 2024-04-25 13:45 | disposition home health service (06) | DRG 641 ==
LOC: ER 17:47 → ICU 18:52 → MEDSURG 04-22 16:52 → ICU 04-23 00:13
PROVIDERS: Hospitalist; Student in an Organized Health Care Education/Training Program; Admitting Provider Internal Medicine; Emergency Provider Nurse Practitioner Family; PCP Clinical Nurse Specialist Adult Health; Visit Provider Internal Medicine
DX: E87.1 Hypo-osmolality and hyponatremia (principal); I50.32 Chronic diastolic (congestive) heart failure; I13.0 Hypertensive heart and chronic kidney disease with heart failure and stage 1 through stage 4 chronic kidney disease, or unspecified chronic kidney disease; E11.22 Type 2 diabetes mellitus with diabetic chronic kidney disease; N18.31 Chronic kidney disease, stage 3a; D50.9 Iron deficiency anemia, unspecified; E55.9 Vitamin D deficiency, unspecified; E53.8 Deficiency of other specified B group vitamins; H81.09 Meniere's disease, unspecified ear; Z90.49 Acquired absence of other specified parts of digestive tract; Z79.82 Long term (current) use of aspirin; H35.30 Unspecified macular degeneration; K21.9 Gastro-esophageal reflux disease without esophagitis; M06.9 Rheumatoid arthritis, unspecified; Z96.652 Presence of left artificial knee joint
CPT/HCPCS: 36415; 36573; 36592; 51702; 70450; 71045; 74018; 74177; 80048; 80053; 81003; 83605; 83690; 83735; 83935; 84295; 84300; 84484; 85025; 85610; 87040; 87070; 87205; 90471; 90732; 92523; 92610; 93005; 96372; 96374; 96376; 97110; 97116; 97161; 97530; 99291; 99292; C1751; C9113; J2550; J2765; J7030; J7131; Q3014; Q9967

== ENCOUNTER → 2024-05-05 11:25 | Outpatient (BNVA) | payer MEDICARE, SELFPAY | PROVIDERS: PCP Clinical Nurse Specialist Adult Health; Visit Provider Specialist | DX: E87.1 Hypo-osmolality and hyponatremia (principal) | CPT/HCPCS: 80048; 81003; 87086 ==

== ENCOUNTER → 2024-05-13 08:43 | Outpatient (BNVA) | payer MEDICARE, SELFPAY | PROVIDERS: PCP Clinical Nurse Specialist Adult Health; Visit Provider Clinical Nurse Specialist Adult Health | DX: E87.1 Hypo-osmolality and hyponatremia (principal) | CPT/HCPCS: 80048 ==

== ENCOUNTER → 2024-05-26 13:47 | Outpatient (BNVA) | payer MEDICARE, SELFPAY | PROVIDERS: PCP Clinical Nurse Specialist Adult Health; Visit Provider Specialist | DX: Z96.651 Presence of right artificial knee joint (principal); M21.061 Valgus deformity, not elsewhere classified, right knee; M17.11 Unilateral primary osteoarthritis, right knee | CPT/HCPCS: 73560; 73565; 99213 ==

== ENCOUNTER → 2024-06-25 08:34 | Outpatient (BNVA) | payer MEDICARE, SELFPAY | PROVIDERS: PCP Clinical Nurse Specialist Adult Health; Visit Provider Clinical Nurse Specialist Adult Health | DX: E87.1 Hypo-osmolality and hyponatremia (principal); R82.71 Bacteriuria | CPT/HCPCS: 80048; 81003; 82040; 82043; 82310; 82570; 83735; 83970; 84100; 84550; 85018 ==

== ENCOUNTER → 2024-08-07 07:59 | Outpatient (BNVA) | payer MEDICARE, SELFPAY | PROVIDERS: PCP Clinical Nurse Specialist Adult Health; Visit Provider Clinical Nurse Specialist Adult Health | DX: E87.1 Hypo-osmolality and hyponatremia (principal); R82.71 Bacteriuria | CPT/HCPCS: 80048; 81003; 82040; 82043; 82310; 83735; 83970; 84100; 84550; 85018 ==

== ENCOUNTER → 2024-09-04 08:42 | Outpatient (BNVA) | payer MEDICARE, SELFPAY | PROVIDERS: PCP Clinical Nurse Specialist Adult Health; Visit Provider Clinical Nurse Specialist Adult Health | DX: E87.1 Hypo-osmolality and hyponatremia (principal) | CPT/HCPCS: 80048; 81003; 82040; 82043; 82310; 82570; 83735; 83970; 84100; 84550; 85018 ==

== ENCOUNTER → 2024-09-15 08:44 | Outpatient (BNVA) | payer MEDICARE, SELFPAY | PROVIDERS: PCP Clinical Nurse Specialist Adult Health; Visit Provider Clinical Nurse Specialist Adult Health | DX: E87.1 Hypo-osmolality and hyponatremia (principal); E11.9 Type 2 diabetes mellitus without complications; E87.5 Hyperkalemia; E83.42 Hypomagnesemia | CPT/HCPCS: 82977; 83615; 84450; 84460 ==

== ENCOUNTER → 2024-10-01 15:14 | Outpatient (BNVA) | payer MEDICARE, SELFPAY | PROVIDERS: PCP Clinical Nurse Specialist Adult Health; Visit Provider Internal Medicine Cardiovascular Disease | DX: R07.9 Chest pain, unspecified (principal); I45.10 Unspecified right bundle-branch block; I34.0 Nonrheumatic mitral (valve) insufficiency; R94.31 Abnormal electrocardiogram [ECG] [EKG]; I44.30 Unspecified atrioventricular block; E87.1 Hypo-osmolality and hyponatremia | CPT/HCPCS: 93005; 99204 ==

== ENCOUNTER → 2024-10-10 11:26 | Outpatient (BNVA) | payer MEDICARE, SELFPAY | PROVIDERS: PCP Clinical Nurse Specialist Adult Health; Visit Provider Clinical Nurse Specialist Adult Health | DX: E87.1 Hypo-osmolality and hyponatremia (principal); E87.5 Hyperkalemia | CPT/HCPCS: 80048; 80076 ==

== ENCOUNTER → 2024-11-11 13:11 | Outpatient (BNVA) | payer MEDICARE, SELFPAY | PROVIDERS: PCP Clinical Nurse Specialist Adult Health; Visit Provider Clinical Nurse Specialist Adult Health | DX: E87.1 Hypo-osmolality and hyponatremia (principal) | CPT/HCPCS: 80048; 80076 ==

== ENCOUNTER 2024-11-12 11:35 | Outpatient (CLI) | payer MEDICARE, SELFPAY ==
--- NOTE | 2024-11-12 11:40 | XR_ITS ---
WS: [id number] XR chest 2V* [id number] REASON FOR EXAM: chronic cough FINDINGS: The chest is unchanged compared to 04/20/2024. Moderate tortuosity of the thoracic aorta. The heart is mildly enlarged. There are areas of linear scarring and and atelectasis in the left lower lobe and right middle lobe. This is associated with mildly dilated bronchi with peribronchial cuffing. These findings are compati ble with chronic/acute airway disease. No lung consolidation. Previous rotator cuff tendon repair on the right. Mild degenerative spondylosis in the thoracic spine. XR/XR chest 2V* [id number] IMPRESSION: Acute/chronic small airway disease as above.
== END 2024-11-12 11:36 | disposition home or self-care (01) ==
LOC: RAD 11:37
PROVIDERS: PCP Family Medicine; Visit Provider Family Medicine
DX: J20.8 Acute bronchitis due to other specified organisms (principal); B96.89 Other specified bacterial agents as the cause of diseases classified elsewhere; Q25.46 Tortuous aortic arch; I51.7 Cardiomegaly; J98.4 Other disorders of lung; J98.11 Atelectasis; Z98.890 Other specified postprocedural states; M47.894 Other spondylosis, thoracic region
CPT/HCPCS: 71046

== ENCOUNTER 2024-11-24 11:51 | Outpatient (CLI) | payer MEDICARE, SELFPAY ==
--- NOTE | 2024-11-24 11:56 | USCV_ITS ---
Marie Coe Age: 89 Gender: F : 1935 Exam Date: 11/24/2024 12:09 Ordering Phys: Saida Alejandro MD ([email or web address]) Technologist: CT [place] [facility] [place]: BP: 146 / 72 HR: 65 Rhythm: Sinus Technical Quality: Adequate MEASUREMENTS (Male / Female) Normal Values 2D ECHO LVOT Diameter 2.0 cm LV Ejection Fraction MOD 4C 61.0 % LV Ejection Fraction MOD 2C 67.3 % LV Ejection Fraction 2C AL 66.5 % LA Diameter 3.5 cm RA Systolic Volume 4C AL 40.5 ml RA Systolic Volume 4C MOD 40.4 ml LA Sys Volume AL 60.4 cm cubed LA Sys Volume Index AL 33.0 cm cubed/m squared Aorta at Sinotubular Diameter 2.6 cm IVC Diameter 1.9 cm M-MODE LA Ao Ratio MM 1.7 AV Cusp Separation MM 1.9 cm DOPPLER AV Peak Velocity 132.0 cm/s LVOT Peak Velocity 103.0 cm/s AV Area Cont Eq vti 2.8 cm squared AV Area Cont Eq pk 2.5 cm squared MV Peak Velocity 123.0 cm/s MV Area PHT 3.9 cm squared Mitral E to A Ratio 0.8 TV Peak Velocity 259.8 cm/s TR Peak Velocity 262.5 cm/s TR Peak Gradient 27.6 mmHg TR Mean Velocity 206.0 cm/s TR Mean Gradient 18.7 mmHg TR Velocity Time Integral 84.5 cm TV Peak E Velocity 64.0 cm/s PV Peak Velocity 77.5 cm/s FINDINGS Left Ventricle Normal left ventricular size, systolic function and wall thickness, with no regional wall motion abnormalities. Left ventricular ejection fraction is estimated at 55%. Grade I/IV diastolic dysfunction (abnormal relaxation filling pattern), normal to mildly elevated filling pressures. Right Ventricle The right ventricle is normal in size and function. Right Atrium The right atrium is normal in size. Left Atrium The left atrium is normal in size. Mitral Valve Mildly thickened mitral valve. Moderate mitral annular calcification. No mitral valve stenosis. Moderate mitral valve regurgitation. Aortic Valve Mild aortic valve calcification. No aortic valve stenosis. Mild aortic valve regurgitation. Tricuspid Valve Ynid-jp-etoxmzxt tricuspid valve regurgitation. Pulmonic Valve Structurally normal pulmonic valve without significant stenosis. There is no pulmonic regurgitation. Pericardium Normal pericardium without effusion. Aorta Normal ascending aorta dimension. IVC The inferior vena cava appears normal. CONCLUSIONS Normal left ventricular size, systolic function and wall thickness, with no regional wall motion abnormalities. Left ventricular ejection fraction is estimated at 55%. Grade I/IV diastolic dysfunction (abnormal relaxation filling pattern), normal to mildly elevated filling pressures. Mildly thickened mitral valve. Moderate mitral annular calcification. No mitral valve stenosis. Moderate mitral valve regurgitation. Mild aortic valve calcification. No aortic valve stenosis. Mild aortic valve regurgitation. Dift-yx-thmlabfy tricuspid valve regurgitation. There is no pericardial effusion. Right atrial pressure is around 5 mm of mercury. Quincy Ghosh MD (Electronically Signed) Final Date: 25 November 2024 01:00 S
== END 2024-11-24 11:52 | disposition home or self-care (01) ==
LOC: RAD 11:51
PROVIDERS: PCP Family Medicine; Visit Provider Internal Medicine Cardiovascular Disease
DX: I35.8 Other nonrheumatic aortic valve disorders (principal); R93.1 Abnormal findings on diagnostic imaging of heart and coronary circulation; I34.81 Nonrheumatic mitral (valve) annulus calcification; I34.0 Nonrheumatic mitral (valve) insufficiency; I35.1 Nonrheumatic aortic (valve) insufficiency; I07.1 Rheumatic tricuspid insufficiency
CPT/HCPCS: 93306

== ENCOUNTER → 2024-12-03 10:54 | Outpatient (BNVA) | payer MEDICARE, SELFPAY | PROVIDERS: PCP Family Medicine; Visit Provider Family Medicine | DX: E87.1 Hypo-osmolality and hyponatremia (principal) | CPT/HCPCS: 80048; 80076 ==

== ENCOUNTER 2024-12-23 08:40 | Outpatient (CLI) | payer MEDICARE, SELFPAY ==
[2024-12-23 09:47] LABS: Alanine Aminotransferase 10 U/L (0-33); Albumin Level 4.1 g/dL (3.5-5.2); Alkaline Phosphatase 90 U/L (35-105); Anion Gap 14.5 (5-19); Aspartate Amino Transferase 15 U/L (0-32); Blood Urea Nitrogen 33 mg/dL (8-23); Calcium 9.2 mg/dL (8.5-10.5); Carbon Dioxide 23 mmol/L (22-29); Chloride 104 mmol/L (98-107); Ferritin 297 ng/mL (15-150); Globulin 3.4 g/dL (1.3-4.6); Glucose 120 mg/dL (65-115); Iron 39 ug/dL (37-145); Osmolality Calculated 292 mOsm/kg (285-295); Percent Saturation 15.7 % (20-50); Potassium 4.5 mmol/L (3.5-5.1); Sodium 137 mmol/L (136-145); Total Bilirubin 0.3 mg/dL (0.15-1.2); Total Iron Binding Capacity 247 mcg/dl; Total Protein 7.5 g/dL (6.6-8.7); Unsaturated Iron Binding 208 ug/dL (112-347)
== END 2024-12-23 08:41 | disposition home or self-care (01) ==
LOC: LAB 08:41
PROVIDERS: PCP Family Medicine; Visit Provider Internal Medicine
DX: E87.1 Hypo-osmolality and hyponatremia (principal); D64.9 Anemia, unspecified; Z79.899 Other long term (current) drug therapy
CPT/HCPCS: 36415; 80048; 80076; 82728; 83540; 83550; 85018

== ENCOUNTER 2025-01-28 11:55 | Outpatient (CLI) | payer MEDICARE, SELFPAY ==
[2025-01-28 12:34] LABS: Alanine Aminotransferase 17 U/L (0-33); Albumin Level 3.7 g/dL (3.5-5.2); Alkaline Phosphatase 94 U/L (35-105); Anion Gap 13.3 (5-19); Aspartate Amino Transferase 19 U/L (0-32); Blood Urea Nitrogen 28 mg/dL (8-23); Calcium 8.8 mg/dL (8.5-10.5); Carbon Dioxide 24 mmol/L (22-29); Chloride 102 mmol/L (98-107); Globulin 3.3 g/dL (1.3-4.6); Glucose 124 mg/dL (65-115); Osmolality Calculated 287 mOsm/kg (285-295); Potassium 4.3 mmol/L (3.5-5.1); Sodium 135 mmol/L (136-145); Total Bilirubin 0.2 mg/dL (0.15-1.2)
== END 2025-01-28 11:56 | disposition home or self-care (01) ==
PROVIDERS: PCP Family Medicine; Visit Provider Internal Medicine
DX: E87.1 Hypo-osmolality and hyponatremia (principal); Z79.899 Other long term (current) drug therapy; D64.9 Anemia, unspecified
CPT/HCPCS: 36415; 80048; 80076

== ENCOUNTER 2025-02-27 15:36 | Outpatient (CLI) | payer MEDICARE, SELFPAY ==
[2025-02-27 16:34] LABS: Alanine Aminotransferase 34 U/L (0-33); Albumin Level 3.8 g/dL (3.5-5.2); Alkaline Phosphatase 99 U/L (35-105); Anion Gap 15.8 (5-19); Aspartate Amino Transferase 18 U/L (0-32); Blood Urea Nitrogen 26 mg/dL (8-23); Calcium 8.7 mg/dL (8.5-10.5); Carbon Dioxide 24 mmol/L (22-29); Chloride 101 mmol/L (98-107); Ferritin 496 ng/mL (15-150); Globulin 3.2 g/dL (1.3-4.6); Glucose 120 mg/dL (65-115); Iron 38 ug/dL (37-145); Osmolality Calculated 288 mOsm/kg (285-295); Percent Saturation 14.4 % (20-50); Potassium 4.8 mmol/L (3.5-5.1); Sodium 136 mmol/L (136-145); Total Bilirubin 0.2 mg/dL (0.15-1.2); Total Iron Binding Capacity 263 mcg/dl; Unsaturated Iron Binding 225 ug/dL (112-347)
== END 2025-02-27 15:37 | disposition home or self-care (01) ==
PROVIDERS: PCP Family Medicine; Visit Provider Internal Medicine
DX: E87.1 Hypo-osmolality and hyponatremia (principal); D64.9 Anemia, unspecified
CPT/HCPCS: 36415; 80048; 80076; 82728; 83540; 83550; 85018

== ENCOUNTER 2025-03-31 15:31 | Outpatient (CLI) | payer MEDICARE, SELFPAY ==
--- NOTE | 2025-03-31 16:30 | CTR_ITS ---
PROCEDURE INFORMATION: Exam: CT Chest Without Contrast; Diagnostic Exam date and time: 03/31/2025 3:47 PM Age: 89 years old Clinical indication: Cough x 1 year; Additional info: Chronic cough TECHNIQUE: Imaging protocol: Diagnostic computed tomography of the chest without contrast. Radiation optimization: All CT scans at this facility use at least one of these dose optimization techniques: automated exposure control; mA and/or kV adjustment per patient size (includes targeted exams where dose is matched to clinical indication); or iterative reconstruction. COMPARISON: CT angio chest [id number] 05/25/2023 9:51 AM RADIATION DOSE METRICS: Total DLP (mGy-cm): 250.15 FINDINGS: Trachea: Unremarkable. Lungs: There are mild scattered hazy densities throughout the lungs which may represent inflammation or mild pulmonary vascular congestion. This is slightly more pronounced in the right upper lobe and bilateral lower lobes relative to the prior study. No dense focal consolidation is seen. Pleural spaces: No significant pleural effusion. No pneumothorax. Heart: Borderline enlarged, stable mitral annular calcifications are noted.. No significant pericardial effusion. Coronary arteries: Mild atherosclerotic calcification. Mediastinal space: No pathologically enlarged lymph nodes. Lymph nodes: Unremarkable. No enlarged lymph nodes. Vasculature: The thoracic aorta is normal in caliber. Mild atherosclerotic calcification. No aortic aneurysm. Bones/joints: Intact. No acute fracture. There is dextroscoliosis of the thoracic spine. Diffuse degenerative changes are noted. Soft tissues: Unremarkable. Other findings: Visualized upper abdominal structures are unremarkable. CT/CT chest [facility] [id number] IMPRESSION: Mild scattered hazy densities throughout the lungs suspicious for mild diffuse inflammation or mild pulmonary vascular congestion. This is slightly more pronounced in the right upper lobe and bilateral lower lobes compared to the prior study. No dense focal consolidation seen.
[2025-03-31 16:58] LABS: Anion Gap 16.2 (5-19); Blood Urea Nitrogen 30 mg/dL (8-23); Calcium 9.6 mg/dL (8.5-10.5); Carbon Dioxide 23 mmol/L (22-29); Chloride 102 mmol/L (98-107); Cholesterol 138 mg/dL (0-200); Ferritin 374 ng/mL (15-150); Glucose 121 mg/dL (65-115); HDL Cholesterol 60 mg/dL (60-100); Iron 34 ug/dL (37-145); LDL Cholesterol Calculated 52 mg/dL (50-129); LDL HDL Ratio 0.87 RATIO (0.00-3.22); Osmolality Calculated 291 mOsm/kg (285-295); Potassium 4.2 mmol/L (3.5-5.1); Sodium 137 mmol/L (136-145); Total Iron Binding Capacity 281 mcg/dl; Triglycerides 130 mg/dL (0-150); Unsaturated Iron Binding 247 ug/dL (112-347)
== END 2025-03-31 15:32 | disposition home or self-care (01) ==
PROVIDERS: Absent Provider Internal Medicine; PCP Family Medicine; Visit Provider Family Medicine
DX: R05.3 Chronic cough (principal); D64.9 Anemia, unspecified; Z79.899 Other long term (current) drug therapy; E87.1 Hypo-osmolality and hyponatremia; R91.8 Other nonspecific abnormal finding of lung field; I34.81 Nonrheumatic mitral (valve) annulus calcification; I25.10 Atherosclerotic heart disease of native coronary artery without angina pectoris; R59.0 Localized enlarged lymph nodes; I70.0 Atherosclerosis of aorta; M41.84 Other forms of scoliosis, thoracic region; M47.9 Spondylosis, unspecified
CPT/HCPCS: 36415; 71250; 80048; 80061; 82728; 83540; 83550; 85018

== ENCOUNTER → 2025-04-06 15:30 | Outpatient (BNVA) | payer MEDICARE, SELFPAY | PROVIDERS: PCP Family Medicine; Visit Provider Family Medicine | DX: R05.3 Chronic cough (principal); R91.8 Other nonspecific abnormal finding of lung field | CPT/HCPCS: 86480 ==

== ENCOUNTER → 2025-04-09 13:26 | Outpatient (BNVA) | payer MEDICARE, SELFPAY | PROVIDERS: PCP Family Medicine; Visit Provider Family Medicine | DX: R05.3 Chronic cough (principal); R91.8 Other nonspecific abnormal finding of lung field | CPT/HCPCS: 86480; 86713 ==

== ENCOUNTER 2025-04-30 11:36 | Outpatient (CLI) | payer MEDICARE, SELFPAY ==
[2025-04-30 13:06] LABS: Hemoglobin 13.20 g/dL (11.27-16.99)
[2025-04-30 13:29] LABS: Alanine Aminotransferase 13 U/L (0-33); Albumin Level 4.0 g/dL (3.5-5.2); Alkaline Phosphatase 94 U/L (35-105); Anion Gap 15.4 (5-19); Aspartate Amino Transferase 19 U/L (0-32); Blood Urea Nitrogen 32 mg/dL (8-23); Calcium 9.0 mg/dL (8.5-10.5); Carbon Dioxide 22 mmol/L (22-29); Chloride 100 mmol/L (98-107); Ferritin 317 ng/mL (15-150); Globulin 3.5 g/dL (1.3-4.6); Glucose 102 mg/dL (65-115); Iron 51 ug/dL (37-145); Osmolality Calculated 283 mOsm/kg (285-295); Potassium 4.4 mmol/L (3.5-5.1); Sodium 133 mmol/L (136-145); Total Iron Binding Capacity 265 mcg/dl; Total Protein 7.5 g/dL (6.6-8.7); Unsaturated Iron Binding 214 ug/dL (112-347)
== END 2025-04-30 11:37 | disposition home or self-care (01) ==
LOC: LAB 11:37
PROVIDERS: PCP Family Medicine; Visit Provider Internal Medicine
DX: D64.9 Anemia, unspecified (principal); E78.1 Pure hyperglyceridemia; Z79.899 Other long term (current) drug therapy
CPT/HCPCS: 36415; 80048; 80076; 82728; 83540; 83550; 85018

== ENCOUNTER 2025-05-06 08:54 | Outpatient (CLI) | payer MEDICARE, SELFPAY ==
--- NOTE | 2025-05-06 09:00 | FL_ITS ---
WS: [id number] Exam: FL barium swallow modifd [id number] Date/Time of Exam: 05/06/2025 8:58 AM Reason For Exam: Fluoroscopy time: 2min [id number] minutes # of spot films: 0 Modified barium swallow test was performed in conjunction with the speech therapy service. Oropharyngeal phase of swallowing was normal. The patient tolerated all consistencies of barium mixture foodstuffs without aspiration or penetration. The patient swallowed a barium tablet without difficulty. FL/FL barium swallow modifd [id number] IMPRESSION: 1. Unremarkable modified barium swallow study. A separate report and recommendations will follow from the speech therapy servi ce.
== END 2025-05-06 08:55 | disposition home or self-care (01) ==
LOC: RAD 08:54
PROVIDERS: PCP Family Medicine; Visit Provider Family Medicine
DX: J69.0 Pneumonitis due to inhalation of food and vomit (principal)
CPT/HCPCS: 74230; 92611

== ENCOUNTER 2025-05-29 11:01 | Outpatient (CLI) | payer MEDICARE, SELFPAY ==
[2025-05-29 12:04] LABS: Hemoglobin 11.10 g/dL (11.27-16.99)
[2025-05-29 12:21] LABS: Alanine Aminotransferase 18 U/L (0-33); Albumin Level 4.0 g/dL (3.5-5.2); Alkaline Phosphatase 90 U/L (35-105); Anion Gap 17.6 (5-19); Aspartate Amino Transferase 22 U/L (0-32); Blood Urea Nitrogen 30 mg/dL (8-23); Calcium 9.1 mg/dL (8.5-10.5); Carbon Dioxide 24 mmol/L (22-29); Chloride 102 mmol/L (98-107); Ferritin 294 ng/mL (15-150); Globulin 3.6 g/dL (1.3-4.6); Glucose 106 mg/dL (65-115); Iron 43 ug/dL (37-145); Magnesium 1.8 mg/dL (1.7-2.3); Osmolality Calculated 295 mOsm/kg (285-295); Potassium 4.6 mmol/L (3.5-5.1); Sodium 139 mmol/L (136-145); Total Iron Binding Capacity 267 mcg/dl; Total Protein 7.6 g/dL (6.6-8.7); Unsaturated Iron Binding 224 ug/dL (112-347)
[2025-05-29 12:55] LABS: UA Manual Slide Review YES; UA Slide Review UA Slide Review Perf
== END 2025-05-29 11:02 | disposition home or self-care (01) ==
PROVIDERS: PCP Family Medicine; Visit Provider Family Medicine
DX: D64.9 Anemia, unspecified (principal); Z79.899 Other long term (current) drug therapy
CPT/HCPCS: 36415; 80048; 80076; 81001; 82728; 83540; 83550; 83735; 84100; 85018

== ENCOUNTER 2025-07-01 10:40 | Outpatient (CLI) | payer MEDICARE, SELFPAY ==
[2025-07-01 11:28] LABS: Hemoglobin 11.10 g/dL (11.27-16.99)
[2025-07-01 11:53] LABS: Alanine Aminotransferase 12 U/L (0-33); Albumin Level 3.8 g/dL (3.5-5.2); Alkaline Phosphatase 87 U/L (35-105); Anion Gap 15.4 (5-19); Aspartate Amino Transferase 18 U/L (0-32); Blood Urea Nitrogen 32 mg/dL (8-23); Calcium 9.0 mg/dL (8.5-10.5); Carbon Dioxide 23 mmol/L (22-29); Chloride 103 mmol/L (98-107); Ferritin 291 ng/mL (15-150); Globulin 3.4 g/dL (1.3-4.6); Glucose 116 mg/dL (65-115); Iron 40 ug/dL (37-145); Osmolality Calculated 292 mOsm/kg (285-295); Potassium 4.4 mmol/L (3.5-5.1); Sodium 137 mmol/L (136-145); Total Iron Binding Capacity 244 mcg/dl; Total Protein 7.2 g/dL (6.6-8.7); Unsaturated Iron Binding 204 ug/dL (112-347)
== END 2025-07-01 10:41 | disposition home or self-care (01) ==
LOC: LAB 10:41
PROVIDERS: PCP Family Medicine; Visit Provider Internal Medicine
DX: D64.9 Anemia, unspecified (principal)
CPT/HCPCS: 36415; 80048; 80076; 82728; 83540; 83550; 85018

== ENCOUNTER 2025-07-31 12:27 | Outpatient (CLI) | payer MEDICARE, SELFPAY ==
[2025-07-31 13:39] LABS: Add Urine Microscopic? NO
[2025-07-31 13:45] LABS: Hemoglobin 11.10 g/dL (11.27-16.99)
[2025-07-31 13:47] LABS: Glucose Urine UA Negative (Normal); Nitrate Urine Negative (Negative); Specific Gravity, Urine 1.007 (1.005-1.030)
[2025-07-31 13:48] LABS: Charge for UA Resulting for Rev
[2025-07-31 14:09] LABS: Alanine Aminotransferase 16 U/L (0-33); Albumin Level 4.1 g/dL (3.5-5.2); Alkaline Phosphatase 90 U/L (35-105); Anion Gap 16.1 (5-19); Aspartate Amino Transferase 18 U/L (0-32); Blood Urea Nitrogen 38 mg/dL (8-23); Calcium 9.1 mg/dL (8.5-10.5); Carbon Dioxide 22 mmol/L (22-29); Chloride 99 mmol/L (98-107); Ferritin 314 ng/mL (15-150); Globulin 3.4 g/dL (1.3-4.6); Glucose 112 mg/dL (65-115); Iron 52 ug/dL (37-145); Magnesium 1.7 mg/dL (1.7-2.3); Osmolality Calculated 286 mOsm/kg (285-295); Potassium 4.1 mmol/L (3.5-5.1); Sodium 133 mmol/L (136-145); Total Iron Binding Capacity 257 mcg/dl; Total Protein 7.5 g/dL (6.6-8.7); Unsaturated Iron Binding 205 ug/dL (112-347)
== END 2025-07-31 12:28 | disposition home or self-care (01) ==
PROVIDERS: PCP Family Medicine; Visit Provider Internal Medicine
DX: D64.9 Anemia, unspecified (principal); E87.1 Hypo-osmolality and hyponatremia; I50.32 Chronic diastolic (congestive) heart failure
CPT/HCPCS: 36415; 80048; 80076; 81003; 82728; 83540; 83550; 83735; 84100; 85018

== ENCOUNTER 2025-08-31 15:44 | Outpatient (CLI) | payer MEDICARE, SELFPAY ==
[2025-08-31 17:03] LABS: Hemoglobin 11.80 g/dL (11.27-16.99)
[2025-08-31 17:29] LABS: Glucose Urine UA Negative (Normal); Nitrate Urine Negative (Negative); Specific Gravity, Urine 1.009 (1.005-1.030)
[2025-08-31 17:29] LABS: Albumin Level 4.1 g/dL (3.5-5.2); Anion Gap 15.5 (5-19); Blood Urea Nitrogen 36 mg/dL (8-23); Calcium 9.3 mg/dL (8.5-10.5); Carbon Dioxide 25 mmol/L (22-29); Chloride 101 mmol/L (98-107); Ferritin 371 ng/mL (15-150); Glucose 120 mg/dL (65-115); Iron 41 ug/dL (37-145); Magnesium 2.0 mg/dL (1.7-2.3); Potassium 4.5 mmol/L (3.5-5.1); Sodium 137 mmol/L (136-145); Total Iron Binding Capacity 253 mcg/dl; Unsaturated Iron Binding 212 ug/dL (112-347)
== END 2025-08-31 15:45 | disposition home or self-care (01) ==
LOC: LAB 15:44
PROVIDERS: Nurse Practitioner Gerontology; PCP Family Medicine; Visit Provider Internal Medicine
DX: I50.32 Chronic diastolic (congestive) heart failure (principal); D64.9 Anemia, unspecified; Z79.899 Other long term (current) drug therapy; E87.1 Hypo-osmolality and hyponatremia
CPT/HCPCS: 36415; 80069; 81001; 82728; 83540; 83550; 83735; 85018

== ENCOUNTER 2025-09-25 11:35 | Outpatient (CLI) | payer MEDICARE, SELFPAY ==
[2025-09-25 12:18] LABS: Hemoglobin 11.20 g/dL (11.27-16.99)
[2025-09-25 12:20] LABS: Glucose Urine UA Negative (Normal); Nitrate Urine Negative (Negative); Specific Gravity, Urine 1.012 (1.005-1.030)
[2025-09-25 12:41] LABS: Alanine Aminotransferase 13 U/L (0-33); Albumin Level 4.1 g/dL (3.5-5.2); Alkaline Phosphatase 89 U/L (35-105); Anion Gap 13.9 (5-19); Aspartate Amino Transferase 18 U/L (0-32); Blood Urea Nitrogen 34 mg/dL (8-23); Calcium 9.0 mg/dL (8.5-10.5); Carbon Dioxide 25 mmol/L (22-29); Chloride 99 mmol/L (98-107); Ferritin 387 ng/mL (15-150); Globulin 3.5 g/dL (1.3-4.6); Glucose 114 mg/dL (65-115); Iron 50 ug/dL (37-145); Magnesium 2.1 mg/dL (1.7-2.3); Osmolality Calculated 284 mOsm/kg (285-295); Potassium 4.9 mmol/L (3.5-5.1); Sodium 133 mmol/L (136-145); Total Iron Binding Capacity 251 mcg/dl; Total Protein 7.6 g/dL (6.6-8.7); Unsaturated Iron Binding 201 ug/dL (112-347)
== END 2025-09-25 11:36 | disposition home or self-care (01) ==
LOC: LAB 11:39
PROVIDERS: PCP Family Medicine
DX: I50.32 Chronic diastolic (congestive) heart failure (principal); E87.1 Hypo-osmolality and hyponatremia
CPT/HCPCS: 36415; 80048; 80076; 81001; 82728; 83540; 83550; 83735; 84100; 85018

== ENCOUNTER 2025-10-16 16:01 | Outpatient (CLI) | payer MEDICARE, SELFPAY ==
[2025-10-16 16:28] LABS: Hematocrit 35.2 % (36-47); Hemoglobin 11.00 g/dL (11.27-16.99)
[2025-10-16 17:07] LABS: Alanine Aminotransferase 39 U/L (0-33); Albumin Level 4.0 g/dL (3.5-5.2); Alkaline Phosphatase 136 U/L (35-105); Anion Gap 18.1 (5-19); Aspartate Amino Transferase 34 U/L (0-32); Blood Urea Nitrogen 28 mg/dL (8-23); Calcium 8.9 mg/dL (8.5-10.5); Carbon Dioxide 20 mmol/L (22-29); Chloride 101 mmol/L (98-107); Ferritin 406 ng/mL (15-150); Globulin 3.6 g/dL (1.3-4.6); Glucose 115 mg/dL (65-115); Iron 26 ug/dL (37-145); Osmolality Calculated 286 mOsm/kg (285-295); Potassium 4.1 mmol/L (3.5-5.1); Sodium 135 mmol/L (136-145); Total Iron Binding Capacity 242 mcg/dl; Total Protein 7.6 g/dL (6.6-8.7); Unsaturated Iron Binding 216 ug/dL (112-347)
== END 2025-10-16 16:02 | disposition home or self-care (01) ==
LOC: LAB 16:03
PROVIDERS: PCP Family Medicine; Visit Provider Nurse Practitioner Gerontology
DX: E87.1 Hypo-osmolality and hyponatremia (principal); D63.1 Anemia in chronic kidney disease; Z79.899 Other long term (current) drug therapy
CPT/HCPCS: 36415; 80048; 80076; 82728; 83540; 83550; 85014; 85018